=== PATIENT | female | born 1975 | race Caucasian/White ===

== ENCOUNTER 2020-01-17 05:50 | Emergency (ER) | payer OTHER, SELFPAY ==
--- NOTE | ~2020-01-17 | XR_ITS ---
EXAMINATION: XR abdomen/kub 1V DATE: 01/17/2020 06:51 INDICATION: Bilateral flank pain. Kidney stones. TECHNIQUE: A supine view of the abdomen on 2 radiographs was obtained. COMPARISON: CT abdomen and pelvis 01/17/2020 FINDINGS: There are no dilated loops of bowel. There is a large volume of stool in the colon. There a re phleboliths in the pelvis. The kidneys are obscured by bowel. There are 2 visible 1-2 mm stones in each kidney. IMPRESSION: 1. Small bilateral kidney stones. Reviewed, dictated and finalized at location A.
--- NOTE | ~2020-01-17 | CT_ITS ---
EXAMINATION: CT abdomen pelvis wo con DATE: 01/17/2020 06:46 INDICATION: Bilateral flank pain. Nausea. Hematuria. TECHNIQUE: Computed tomography (CT) of the abdomen and pelvis was performed without intravenous contr ast. Automated exposure control and iterative reconstruction technique were employed. The dose-length product was 168.55 mGy-cm. COMPARISON: CT abdomen and pelvis 02/01/2019 FINDINGS: The visualized portions of the lung bases are clear without pneumonia or pleural effusion. The heart size is normal. No pericardial effusion. Partially visualized are breast implants. The live r, gallbladder, spleen, pancreas, and adrenal glands are normal. There are at least seven 1-2 mm ston es in right kidney. There are at least nine 1-3 mm stones in left kidney. There are no dilated loops of bowel. The appendix is normal. There are no pathologically enlarged lymph nodes. There is no free intraperitoneal fluid. There is mild lumbar spondylosis. IMPRESSION: 1. Small bilateral nonobstructing kidney stones. Reviewed, dictated and finalized at location A.
[2020-01-17 05:55] VITALS: BP 98/60; PULSE 112; RESP 18; TEMP 37.1; O2SAT 100
[2020-01-17 06:24] LABS: Basophils Percent Auto 0.5 % (0.2-1.2); Eosinophils Percent Auto 0.7 % (0-4.4); Hematocrit 41.5 % (37.0-47.0); Hemoglobin 13.4 g/dL (12.0-15.0); Immature Granulocyte Absolute 0.03 K/mm3 (0.00-0.031); Immature Granulocyte Percent A 0.5 % (0-0.5); Lymphocytes Absolute Auto 1.06 K/mm3 (0.9-3.2); Lymphocytes Percent Auto 17.8 % (18.3-44.2); Mean Corpuscular HGB Conc 32.3 g/dl (32-36); Mean Corpuscular Hemoglobin 31.2 pg (26-34); Mean Corpuscular Volume 96.7 fl (80-100); Mean Platelet Volume 11.7 fl (7.4-10.4); Monocytes Absolute Auto 0.7 K/mm3 (0.1-0.6); Monocytes Percent Auto 11.6 % (2.6-8.5); Neutrophils Absolute Auto 4.1 K/mm3 (1.3-6.7); Neutrophils Percent Auto 68.9 % (45.5-73.1); Platelet Count Result 202 k/mm3 (150-375); Red Blood Count 4.29 M/mm3 (4.2-5.4)
[2020-01-17] MEDS: ONDANSETRON INJ 4 MG/2 ML VIAL IV PUSH (06:26)
[2020-01-17] MEDS: HYDROMORPHONE HCL 1 MG/ML INJ 0.5 MG IV PUSH (06:27)
--- NOTE | 2020-01-17 06:35 | ED.ABDPAIN ---
HPI - Abdominal Pain General Chief Complaint: Abdominal Pain Stated Complaint: FLANK PAIN Time Seen by Provider: 01/17/20 06:01 Source: patient Mode of arrival: ambulatory Limitations: no limitations History of Present Illness HPI narrative: 44 yo female with h/o SLE , kidney stones, hypotension, tachycardia who presents with c/o bilateral flank pain. Patient states she developed severe right flank pain at 5 am as she was getting ready for work this morning. She states her pain has been constant and severe. She has not developed left flank pain as well. This pain feels similar to her previous kidney stones. She denies associated nausea, vomiting, fever or urinary symptoms. She has not taken anything for her pain prior to arrival. MD elicited complaint: flank pain Pertinent past history: kidney stones Onset (ago): hour(s) (1) Pain Consistency: constant Location: RLQ, LLQ, L flank and R flank Radiation: other (bilateral groin) Related Data Home Medications Medication Instructions Recorded Confirmed amitriptyline 01/17/20 cyclobenzaprine mg 01/17/20 gabapentin 01/17/20 hydrocodone-acetaminophen 01/17/20 Allergies Allergy/AdvReac Type Severity Reaction Status Date / Time PROCHLORPERAZINE EDISYLATE Allergy Mild LOCKED JAW Uncoded 06/07/18 07:34 AND NECK PROCHLORPERAZINE MALEATE Allergy Mild LOCK JAW Uncoded 06/07/18 07:34 AND NECK MEPERIDINE HCL AdvReac Mild N&A Uncoded 06/07/18 07:34 Review of Systems Review of Systems: All systems reviewed & are unremarkable except as noted in HPI and below Constitutional: Constitutional: Denies chills and Denies fever(s) Cardiovascular: Cardiovascular: Denies chest pain and Reports rapid heart rate (history of tachycardia) Respiratory: Respiratory: Denies cough Gastrointestinal: Gastrointestinal: Reports abdominal pain Genitourinary: Genitourinary: Denies hematuria, Denies nocturia, Denies dysuria and Reports flank pain Musculoskeletal: Musculoskeletal: Reports back pain [facility] Past Medical History Medical History (Updated 01/17/20 @ 07:25 by Yadira Brothers MD) Hypotension Kidney stone Lupus (systemic lupus erythematosus) Tachycardia Surgical History Surgical History (Updated 01/17/20 @ 06:41 by Yadira Brothers MD) H/O lithotripsy Family History Family History (Updated 01/17/20 @ 06:43 by Yadira Brothers MD) Mother Multiple sclerosis Social History Social History (Updated 01/17/20 @ 06:42 by Yadira Brothers MD) Smoking status: Former smoker Gender identity (if verbalized by the patient): Female Exam Const: General: alert; No diaphoretic Nutritional Appearance: thin Orientation/consciousness: patient oriented x3 Other: mild distress Eyes: Conjunctivae: conjunctivae normal Pupils: Equal, round and reactive pupils present EOM: EOMs intact bilaterally Neck: Neck: no lymphadenopathy Resp: Effort & Inspection: normal respiratory effort Auscultation: clear to auscultation bilaterally Cardio: Rate: tachycardic Rhythm: regular rhythm Heart sounds: no murmurs GI: GI Palp: Yes Soft to palpation and Yes Tenderness to palpation present (GI) (bilateral lower quadrant, suprapubic) Auscultation: normal bowel sounds Back/Spine/Pelvis: Back: CVA tenderness (right) Skin: General skin exam: normal color Rashes: no rashes Course Reevaluation(s) Reevaluation #1: Patient states she feels better. I have discussed CT showing bilateral kidney stones but no obstructing. She will be started on antibiotics for UTi. Date: 01/17/20 Time: 07:23 Vital Signs Vital signs: Vital Signs Temperature 98.7 F 01/17/20 05:55 Pulse Rate 112 H 01/17/20 05:55 Respiratory Rate 18 01/17/20 05:55 Blood Pressure 98/60 L 01/17/20 05:55 Pulse Oximetry 100 01/17/20 05:55 Temperature 98.7 F 01/17/20 05:55 Pulse Rate 82 01/17/20 07:25 Respiratory Rate 18 01/17/20 07:25 Blood Pressure 106/61 01/17/20
[2020-01-17 06:38] LABS: Blood Urea Nitrogen 13 mg/dL (7-17); Calcium 9.5 mg/dL (8.4-10.2); Carbon Dioxide 32 mmol/L (22-30); Chloride 98 mmol/L (98-107); Estimated Glomerular Filt Rate > 60; Glucose 91 mg/dL (65-105); Potassium 4.2 mmol/L (3.4-5.0); Sodium 136 mmol/L (137-145)
[2020-01-17 06:43] LABS: Add Urine Microscopic? YES; Appearance Urine Cloudy (Clear); Bilirubin Urine Negative (Negative); Blood Urine 2+ (Negative); Color Urine Yellow (Yellow); Glucose Urine UA Negative (Negative); Ketones Urine Negative (Negative); Leukocyte Esterase Ur 3+ LEU/UL (Negative); Mucus Urine Rare /lpf; Nitrate Urine Negative (Negative); Protein Urine 2+ mg/dL (Negative); RBC Urine >75 /hpf (0-2); Specific Grav Ur 1.016 (1.001-1.035); Squamous Epithelial Cell Urine Few /hpf (Few); WBC Urine >75 /hpf
[2020-01-17 07:25] VITALS: BP 106/61; PULSE 82; RESP 18; O2SAT 98
== END 2020-01-17 07:50 | disposition home or self-care (01) ==
PROVIDERS: Emergency Provider General Practice; PCP Nurse Practitioner Adult Health
DX: N39.0 Urinary tract infection, site not specified (principal); M32.9 Systemic lupus erythematosus, unspecified; Z87.891 Personal history of nicotine dependence; Z87.442 Personal history of urinary calculi
CPT/HCPCS: 36415; 74018; 74176; 80048; 81001; 81025; 83735; 85025; 87077; 87086; 87088; 87186; 96365; 96375; 99284; J0696; J1170; J2405

== ENCOUNTER 2020-01-22 11:04 | Emergency (ER) | payer OTHER, SELFPAY ==
--- NOTE | ~2020-01-22 | CT_ITS ---
EXAMINATION: CT brain wo con DATE: 01/22/2020 12:07 INDICATION: Headache. TECHNIQUE: Computed tomography (CT) of the head was performed without intravenous contrast. The mA wa s adjusted according to patient size. Iterative reconstruction technique was employed. The dose-lengt h product was 605.33 mGy-cm. COMPARISON: Brain MRI 07/18/2018 FINDINGS: There is no intracranial hemorrhage, acute infarction, or abnormal intracranial mass lesion . The ventricles are normal in size. There is mild mucosal thickening in sphenoid sinus. 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 The mastoid air cells are normal. IMPRESSION: 1. Normal brain. Reviewed, dictated and finalized at location A. IMPRESSION: 1. Normal brain.
[2020-01-22 11:35] VITALS: BP 123/68; PULSE 106; RESP 18; TEMP 37.2; O2SAT 100
--- NOTE | 2020-01-22 11:49 | ED.GENADULT ---
HPI - General Adult General Chief complaint: Headache Stated complaint: multiple complaints Time Seen by Provider: 01/22/20 11:25 Source: patient Mode of arrival: ambulatory Limitations: no limitations History of Present Illness HPI narrative: Patient awoke at 630 this morning with a sudden headache. She is complaining of pain and nausea. She does not have a history of migraine. Onset (ago): hour(s) Location: head Radiation: non-radiation Severity: severe Quality: aching Relieving factors: none Exacerbating factors: none Associated symptoms: nausea/vomiting Treatments prior to arrival: none Related Data Home Medications Medication Instructions Recorded Confirmed gabapentin 300 mg PO TID 01/17/20 albuterol sulfate [ProAir HFA] 2 puff INHALATION QID PRN 01/22/20 amitriptyline 100 mg PO HS 01/22/20 azathioprine 100 mg PO DAILY 01/22/20 budesonide-formoterol [Symbicort] 2 puff INHALATION Q12H 01/22/20 fludrocortisone 0.1 mg PO DAILY 01/22/20 hydroxychloroquine 400 mg PO DAILY 01/22/20 midodrine 10 mg PO BID 01/22/20 midodrine 15 mg PO QAM 01/22/20 potassium citrate 30 meq PO TID 01/22/20 prednisone 2 mg PO DAILY 01/22/20 rituximab mg IV [id number] 01/22/20 spironolactone 100 mg PO DAILY 01/22/20 Allergies Allergy/AdvReac Type Severity Reaction Status Date / Time prochlorperazine Allergy Intermediate Other Verified 01/22/20 11:39 [From Compazine] meperidine AdvReac Nausea and Verified 01/22/20 14:15 Vomiting Review of Systems Review of Systems: All systems reviewed & are unremarkable except as noted in HPI and below PMFSH Past Medical History Medical History Hypotension Kidney stone Lupus (systemic lupus erythematosus) Tachycardia Surgical History Surgical History H/O lithotripsy Family History Family History (Updated 01/22/20 @ 13:25 by Joi Strong PA-C) Mother Multiple sclerosis Father Pulmonary fibrosis Social History Social History (Updated 01/22/20 @ 12:44 by Joi Strong PA-C) Smoking status: Former smoker Alcohol intake: never Substance use: never Living arrangements: with family Occupation/Education: occupation Additional occupation/education comments: [employer] Gender identity (if verbalized by the patient): Female Exam Const: General: healthy appearing, no acute distress and alert Orientation/consciousness: patient oriented x3 HENMT: Head: normal to inspection Ears: TM's normal bilaterally Throat: posterior oropharynx normal Eyes: Conjunctivae: conjunctivae normal Pupils: Equal, round and reactive pupils present EOM: EOMs intact bilaterally Neck: Neck: no lymphadenopathy Resp: Effort & Inspection: normal respiratory effort Auscultation: clear to auscultation bilaterally Cardio: Rate: regular rate Rhythm: regular rhythm GI: GI Palp: Yes Soft to palpation Skin: General skin exam: normal color Rashes: no rashes Neuro: General: patient oriented x3, moves all extremities and no meningeal signs Psych: Mental Status: mental status grossly normal Course Course Emergency Course: Pt states her head hurts worse with movement. CT is normal. Pt does take Hydrocodone for chronic pain, and took it this am. She is feeling better. Will treat as migraine. Vital Signs Vital signs: Vital Signs Temperature 37.2 C 01/22/20 11:35 Pulse Rate 106 H 01/22/20 11:35 Respiratory Rate 18 01/22/20 11:35 Blood Pressure 123/68 01/22/20 11:35 Pulse Oximetry 100 01/22/20 11:35 Temperature 37.2 C 01/22/20 11:35 Pulse Rate 106 H 01/22/20 11:35 Respiratory Rate 18 01/22/20 11:35 Blood Pressure 123/68 01/22/20 11:35 Pulse Oximetry 100 01/22/20 11:35 Medical Decision Making Vital Signs Vital Signs: Vital Signs Temperature 37.2 C 01/22/20 11:35 Pulse Rate 106 H 01/22/20 11:35 Re
[2020-01-22] MEDS: SODIUM CHLORIDE 0.9% IV 1,000 ML 999 ML IV CONT (12:43)
[2020-01-22] MEDS: ONDANSETRON INJ 4 MG/2 ML VIAL IV PUSH (12:44)
[2020-01-22] MEDS: KETOROLAC 30 MG/ML VIAL (*BKC) IV PUSH (12:45)
[2020-01-22 12:47] LABS: Basophils Percent Auto 0.3 % (0.2-1.2); Eosinophils Percent Auto 0.2 % (0-4.4); Hematocrit 42.5 % (37.0-47.0); Hemoglobin 13.9 g/dL (12.0-15.0); Immature Granulocyte Absolute 0.02 K/mm3 (0.00-0.031); Immature Granulocyte Percent A 0.3 % (0-0.5); Lymphocytes Absolute Auto 0.21 K/mm3 (0.9-3.2); Lymphocytes Percent Auto 3.3 % (18.3-44.2); Mean Corpuscular HGB Conc 32.7 g/dl (32-36); Mean Corpuscular Hemoglobin 31.4 pg (26-34); Mean Corpuscular Volume 96.2 fl (80-100); Mean Platelet Volume 11.7 fl (7.4-10.4); Monocytes Absolute Auto 0.5 K/mm3 (0.1-0.6); Monocytes Percent Auto 8.1 % (2.6-8.5); Neutrophils Absolute Auto 5.6 K/mm3 (1.3-6.7); Neutrophils Percent Auto 87.8 % (45.5-73.1); Platelet Count Result 177 k/mm3 (150-375); Red Blood Count 4.42 M/mm3 (4.2-5.4); Red Cell Distribution Width 12.9 % (11.5-14.5); White Blood Count 6.4 K/mm3 (4.5-10.0)
[2020-01-22 13:00] LABS: Alanine Aminotransferase 38 U/L (4-35); Albumin Level 5.1 g/dL (3.5-5.1); Alkaline Phosphatase 72 U/L (38-126); Aspartate Amino Transferase 50 U/L (14-36); Bilirubin,Total 0.3 mg/dL (0.2-1.3); Blood Urea Nitrogen 12 mg/dL (7-17); Carbon Dioxide 31 mmol/L (22-30); Chloride 95 mmol/L (98-107); Estimated CRCL calculation 62 ml/min; Estimated Glomerular Filt Rate > 60; Glucose 73 mg/dL (65-105); Potassium 4.4 mmol/L (3.4-5.0); Sodium 133 mmol/L (137-145)
[2020-01-22 14:49] VITALS: BP 98/52; PULSE 108; RESP 18; O2SAT 99
== END 2020-01-22 14:50 | disposition home or self-care (01) ==
PROVIDERS: Physician Assistant; Emergency Provider Emergency Medicine; PCP Nurse Practitioner Adult Health
DX: G43.009 Migraine without aura, not intractable, without status migrainosus (principal); M32.9 Systemic lupus erythematosus, unspecified; Z87.891 Personal history of nicotine dependence; Z87.442 Personal history of urinary calculi
CPT/HCPCS: 36415; 70450; 80053; 85025; 96361; 96374; 96375; 99284; J1200; J1885; J2405; J7030

== ENCOUNTER 2020-01-23 12:38 | Emergency (ER) | payer OTHER, SELFPAY ==
--- NOTE | ~2020-01-23 | XR_ITS ---
EXAMINATION: XR chest 1V portable DATE: 01/23/2020 13:56 INDICATION: Chest pain. Cough. TECHNIQUE: A single frontal view of the chest was obtained. COMPARISON: Chest 2 views 02/24/2015 FINDINGS: The chest demonstrates clear lungs without pneumonia, pleural effusion, or pneumothorax. Th e heart size is normal. IMPRESSION: 1. No acute cardiopulmonary disease. Reviewed, dictated and finalized at location A.
[2020-01-23 12:43] VITALS: BP 103/65; PULSE 109; RESP 20; TEMP 37.4; O2SAT 99
[2020-01-23] MEDS: METOCLOPRAMIDE HCL INJ 10 MG/2 ML VIAL IV PUSH (13:33)
[2020-01-23] MEDS: KETOROLAC (*BKC) 60 MG/2 ML VIAL IM (13:33)
[2020-01-23] MEDS: SODIUM CHLORIDE 0.9% IV 1,000 ML 999 ML IV CONT (13:34)
[2020-01-23 13:40] LABS: Basophils Percent Auto 0.2 % (0.2-1.2); Eosinophils Percent Auto 0.2 % (0-4.4); Hematocrit 35.3 % (37.0-47.0); Hemoglobin 11.5 g/dL (12.0-15.0); Immature Granulocyte Absolute 0.01 K/mm3 (0.00-0.031); Immature Granulocyte Percent A 0.2 % (0-0.5); Immature Platelet Fraction Pct 5.4 % (0.9-11.2); Lymphocytes Absolute Auto 0.49 K/mm3 (0.9-3.2); Lymphocytes Percent Auto 10.7 % (18.3-44.2); Mean Corpuscular HGB Conc 32.6 g/dl (32-36); Mean Corpuscular Hemoglobin 31.3 pg (26-34); Mean Corpuscular Volume 95.9 fl (80-100); Mean Platelet Volume 11.5 fl (7.4-10.4); Monocytes Absolute Auto 0.8 K/mm3 (0.1-0.6); Monocytes Percent Auto 16.6 % (2.6-8.5); Neutrophils Absolute Auto 3.3 K/mm3 (1.3-6.7); Neutrophils Percent Auto 72.1 % (45.5-73.1); Platelet Count Result 125 k/mm3 (150-375); Red Blood Count 3.68 M/mm3 (4.2-5.4); Red Cell Distribution Width 13.1 % (11.5-14.5); White Blood Count 4.6 K/mm3 (4.5-10.0)
--- NOTE | 2020-01-23 13:40 | ED.URI ---
HPI - URI/Sore Throat General Chief Complaint: Upper Respiratory Infection Stated Complaint: headaches, mucus Time Seen by Provider: 01/23/20 13:12 Source: patient Mode of arrival: ambulatory Limitations: no limitations History of Present Illness HPI Narrative: This is a 44 year old female that presents to the ER for headache x 2 days. Reports posterior headache that is constant. Reports history of migraines. She has tried taking her migraine medications with little relief. Also reports some cough and congestion. Reports mid chest pain with breathing. Denies fever, shortness of breath, vision changes, vomiting, numbness or weakness. Related Data Home Medications Medication Instructions Recorded Confirmed gabapentin 300 mg PO TID 01/17/20 albuterol sulfate [ProAir HFA] 2 puff INHALATION QID PRN 01/22/20 amitriptyline 100 mg PO HS 01/22/20 azathioprine 100 mg PO DAILY 01/22/20 budesonide-formoterol [Symbicort] 2 puff INHALATION Q12H 01/22/20 fludrocortisone 0.1 mg PO DAILY 01/22/20 hydroxychloroquine 400 mg PO DAILY 01/22/20 midodrine 10 mg PO BID 01/22/20 midodrine 15 mg PO QAM 01/22/20 potassium citrate 30 meq PO TID 01/22/20 prednisone 2 mg PO DAILY 01/22/20 rituximab mg IV [id number] 01/22/20 spironolactone 100 mg PO DAILY 01/22/20 Allergies Allergy/AdvReac Type Severity Reaction Status Date / Time prochlorperazine Allergy Intermediate Other Verified 01/22/20 11:39 [From Compazine] meperidine AdvReac Nausea and Verified 01/22/20 14:15 Vomiting Review of Systems Review of Systems: Narrative: CONSTITUTIONAL: Denies fever EYES: Denies visual changes ENT: Reports congestion. Denies sore throat, or otalgia. CARDIOVASCULAR: Reports chest pain RESPIRATORY: Reports cough. Denies dyspnea. GASTROINTESTINAL: Denies vomiting NEUROLOGIC: Reports headache. Denies numbness, or weakness. All systems reviewed & are unremarkable except as noted in HPI and below PMFSH Family History Family History (Updated 01/22/20 @ 13:26 by Joi Strong PA-C) Mother Multiple sclerosis Father Pulmonary fibrosis Social History Social History (Updated 01/22/20 @ 12:44 by ROMAN Pedraza Smoking status: Former smoker Alcohol intake: never Substance use: never Additional occupation/education comments: [employer] Gender identity (if verbalized by the patient): Female Exam Narrative: Exam Narrative: GENERAL: Well-appearing, well-nourished, and in no acute distress. HEAD: Normocephalic, atraumatic. EYES: PERRLA and EOMI. ENT: Nares clear, no rhinorrhea or epistaxis. Mucous membranes moist. Oropharynx without tonsillar hypertrophy exudate or other lesions. Bilateral TMs pearly [place] non-bulging NECK: Supple. No adenopathy or masses. Normal ROM CHEST: Clear to auscultation. No respiratory distress. No wheezes rales or rhonchi HEART: Regular rate and rhythm. No murmur heard. Normal peripheral pulses. EXTREMITIES: Normal range of motion. No edema. Strength equal in bilateral upper and lower extremities SKIN: Warm, dry, no rash. NEURO: No focal deficits. Alert and oriented x3. CN II-XII grossly intact. Normal finger to nose PSYCH: Normal mood and affect Course Vital Signs Vital signs: Vital Signs Temperature 99.3 F 01/23/20 12:43 Pulse Rate 109 H 01/23/20 12:43 Respiratory Rate 01/23/20 12:43 Blood Pressure 103/65 01/23/20 12:43 Pulse Oximetry 99 01/23/20 12:43 Temperature 99.3 F 01/23/20 12:43 Pulse Rate 109 H 01/23/20 12:43 Respiratory Rate 01/23/20 12:43 Blood Pressure 103/65 01/23/20 12:43 Pulse Oximetry 99 01/23/20 12:43 MDM - URI/Sore Throat MDM Narrative Medical decision making narrative: Patient presents to the emergency department for cold symptoms x2 days. She is afebrile and nontoxic-appearing. No leukocytosis on CBC. Patient with mild normocytic anemia which seems to be around her baseline. Metabolic panel with mild hyponatremia,
[2020-01-23 13:50] LABS: Blood Urea Nitrogen 10 mg/dL (7-17); Calcium 8.6 mg/dL (8.4-10.2); Carbon Dioxide 26 mmol/L (22-30); Chloride 99 mmol/L (98-107); Estimated CRCL calculation 69 ml/min; Estimated Glomerular Filt Rate > 60; Glucose 86 mg/dL (65-105); Potassium 4.3 mmol/L (3.4-5.0); Sodium 131 mmol/L (137-145)
[2020-01-23 13:58] LABS: D Dimer 0.27 ug/mL (<0.48)
[2020-01-23 14:02] LABS: Troponin I < 0.012 ng/mL (0.000-0.034)
[2020-01-23 14:54] VITALS: BP 128/80; PULSE 80; RESP 20; TEMP 37.1; O2SAT 98
== END 2020-01-23 14:55 | disposition home or self-care (01) ==
PROVIDERS: Physician Assistant; Emergency Provider Emergency Medicine; PCP Nurse Practitioner Adult Health
DX: B34.9 Viral infection, unspecified (principal); Z87.891 Personal history of nicotine dependence; M32.9 Systemic lupus erythematosus, unspecified; Z87.442 Personal history of urinary calculi
CPT/HCPCS: 36415; 71045; 80048; 84484; 85025; 85055; 85380; 87804; 96365; 96372; 96375; 99284; J0131; J1100; J1200; J1885; J2765; J7030

== ENCOUNTER 2020-04-11 17:03 | Outpatient (CLI) | payer OTHER, SELFPAY ==
--- NOTE | ~2020-04-11 | MR_ITS ---
EXAMINATION: MR lumbar spine wo con EXAM DATE: 04/11/2020 17:46 INDICATION: Lumbar radiculopathy. TECHNIQUE: Multi-sequential, multiplanar MR images of the lumbar spine were obtained without contrast . Sagittal T1, T2, T2 fat saturation images. Axial T2 weighted images. Comparison is made to prior examination from 07/25/2018. FINDINGS: Mild loss of the L4-5 and L5-S1 disc heights with tiny annular fissures. The vertebral body and disc heights are otherwise well maintained. The vertebral bodies are aligned in the AP dimension . The conus medullaris terminates at the L1/2 level and has normal signal intensity and morphology. There are no suspicious marrow signal abnormalities. Paraspinal soft tissue is unremarkable. Level by level evaluation: T12-L1: Disc does not extend beyond the endplate margin. Facet arthropathy: Mild. Neural foraminal stenosis: No stenosis. Central canal stenosis: No stenosis. L1-L2: Disc does not extend beyond the endplate margin. Facet arthropathy: Mild. Neural foraminal stenosis: No stenosis. Central canal stenosis: No stenosis. L2-L3: Disc does not extend beyond the endplate margin. Facet arthropathy: Mild. Neural foraminal stenosis: No stenosis. Central canal stenosis: No stenosis. L3-L4: There is a minimal diffuse disc bulge. Facet arthropathy: Mild. Neural foraminal stenosis: No stenosis. Central canal stenosis: No stenosis. L4-L5: There is a mild diffuse disc bulge. Facet arthropathy: Moderate. Neural foraminal stenosis: Mild to moderate left, mild right. Central canal stenosis: Mild. L5-S1: There is a mild diffuse disc bulge. Facet arthropathy: Mild. Neural foraminal stenosis: No stenosis. Central canal stenosis: No stenosis. Difficult appreciate any significant interval change compared to 2018. IMPRESSION: Mild lumbar spondylosis, not significantly changed. Reviewed, dictated and finalized at location B.
== END 2020-04-11 17:04 | disposition home or self-care (01) ==
PROVIDERS: PCP Nurse Practitioner Adult Health; Visit Provider Nurse Practitioner Family
DX: M47.26 Other spondylosis with radiculopathy, lumbar region (principal)
CPT/HCPCS: 72148

== ENCOUNTER 2020-04-13 14:46 | Outpatient (CLI) | payer OTHER, SELFPAY ==
--- NOTE | ~2020-04-13 | XR_ITS ---
EXAMINATION: XR chest 2V DATE: 04/13/2020 15:31 INDICATION: Hemoptysis, mid chest pressure TECHNIQUE: PA and lateral views of the chest are obtained. COMPARISON: 01/23/2020 FINDINGS: The lungs are free of acute opacities. There is no pleural effusion or pneumothorax. The ca rdiomediastinal silhouette is normal. There is subtle dextrocurvature of the upper thoracic spine. Bi lateral breast implants are noted. IMPRESSION: 1. No acute cardiopulmonary abnormality. Reviewed, dictated and finalized at location A.
[2020-04-13 15:20] LABS: Basophils Percent Auto 0.3 % (0.2-1.2); Eosinophils Percent Auto 0.6 % (0-4.4); Hematocrit 38.9 % (37.0-47.0); Hemoglobin 12.8 g/dL (12.0-15.0); Immature Granulocyte Absolute 0.02 K/mm3 (0.00-0.031); Immature Granulocyte Percent A 0.3 % (0-0.5); Lymphocytes Absolute Auto 1.04 K/mm3 (0.9-3.2); Lymphocytes Percent Auto 15.7 % (18.3-44.2); Mean Corpuscular HGB Conc 32.9 g/dl (32-36); Mean Corpuscular Hemoglobin 32.2 pg (26-34); Mean Corpuscular Volume 97.7 fl (80-100); Mean Platelet Volume 11.9 fl (7.4-10.4); Monocytes Absolute Auto 0.7 K/mm3 (0.1-0.6); Monocytes Percent Auto 9.8 % (2.6-8.5); Neutrophils Absolute Auto 4.8 K/mm3 (1.3-6.7); Neutrophils Percent Auto 73.3 % (45.5-73.1); Platelet Count Result 201 k/mm3 (150-375); Red Blood Count 3.98 M/mm3 (4.2-5.4); Red Cell Distribution Width 12.5 % (11.5-14.5); White Blood Count 6.6 K/mm3 (4.5-10.0)
[2020-04-13 15:45] LABS: D Dimer 0.27 ug/mL (<0.48)
== END 2020-04-13 14:47 | disposition home or self-care (01) ==
LOC: ANHLAB 14:56
PROVIDERS: PCP Nurse Practitioner Adult Health; Visit Provider Nurse Practitioner Adult Health
DX: R04.2 Hemoptysis (principal)
CPT/HCPCS: 36415; 71046; 85025; 85380

== ENCOUNTER 2020-08-07 10:19 | Outpatient (CLI) | payer OTHER, SELFPAY ==
--- NOTE | ~2020-08-07 | XR_ITS ---
XR abdomen/kub 1V 08/07/2020 11:19 INDICATION: History of kidney stones TECHNIQUE: KUB COMPARISON: Comparison to multiple prior studies sequentially, with oldest reviewed study dated 02/01. FINDINGS: Bowel gas pattern is normal. There is no evidence of free air, mass, organomegaly, ascites or obstruction. No abnormal calculi are seen. Kidneys are obscured by bowel content. There are pelv ic phleboliths. The bones appear intact. IMPRESSION: 1: No acute abdominal abnormality identified. Reviewed, dictated and finalized at location A.
[2020-08-07 10:55] LABS: Basophils Percent Auto 0.4 % (0.2-1.2); Eosinophils Absolute Auto 0.1 K/mm3 (0-0.3); Eosinophils Percent Auto 1.5 % (0-4.4); Hematocrit 44.7 % (37.0-47.0); Hemoglobin 14.9 g/dL (12.0-15.0); Immature Granulocyte Absolute 0.02 K/mm3 (0.00-0.031); Immature Granulocyte Percent A 0.4 % (0-0.5); Lymphocytes Absolute Auto 0.81 K/mm3 (0.9-3.2); Lymphocytes Percent Auto 15.1 % (18.3-44.2); Mean Corpuscular HGB Conc 33.3 g/dl (32-36); Mean Corpuscular Hemoglobin 32.4 pg (26-34); Mean Corpuscular Volume 97.2 fl (80-100); Mean Platelet Volume 11.3 fl (7.4-10.4); Monocytes Absolute Auto 0.4 K/mm3 (0.1-0.6); Monocytes Percent Auto 8.2 % (2.6-8.5); Neutrophils Percent Auto 74.4 % (45.5-73.1); Platelet Count Result 228 k/mm3 (150-375); Red Cell Distribution Width 12.2 % (11.5-14.5); White Blood Count 5.4 K/mm3 (4.5-10.0)
[2020-08-07 10:58] LABS: Add Urine Microscopic? NO; Appearance Urine Clear (Clear); Bilirubin Urine Negative (Negative); Blood Urine Negative (Negative); Color Urine Straw (Yellow); Glucose Urine UA Negative (Negative); Ketones Urine Negative (Negative); Leukocyte Esterase Ur Negative LEU/UL (NEGATIVE); Nitrate Urine Negative (Negative); Protein Urine Negative (Negative); Urobilinogen Urine Negative mg/dL (<2.0)
[2020-08-07 10:59] LABS: Specific Grav Ur 1.004 (1.001-1.035)
[2020-08-07 11:08] LABS: D Dimer 0.27 ug/mL (<0.48)
== END 2020-08-07 10:20 | disposition home or self-care (01) ==
PROVIDERS: PCP Nurse Practitioner Adult Health; Visit Provider Nurse Practitioner Adult Health
DX: Z87.442 Personal history of urinary calculi (principal); R10.9 Unspecified abdominal pain; R04.2 Hemoptysis
CPT/HCPCS: 36415; 74018; 81003; 85025; 85380

== ENCOUNTER 2020-10-21 11:29 | Outpatient (CLI) | payer OTHER, SELFPAY ==
--- NOTE | ~2020-10-21 | XR_ITS ---
XR abdomen/kub 1V 10/21/2020 11:51 INDICATION: Renal stone TECHNIQUE: KUB COMPARISON: Comparison to multiple prior studies sequentially, with oldest reviewed study dated 05/24. FINDINGS: Bowel gas pattern is normal. There is no evidence of free air, mass, organomegaly, ascites or obstruction. There are possible small bilateral renal stones, obscured by bowel content. There ar e pelvic phleboliths. The bones appear intact. IMPRESSION: 1: Possible small bilateral renal stones obscured by bowel content.. Reviewed, dictated and finalized at location A. [employer] REPA[employer]ER
== END 2020-10-21 11:30 | disposition home or self-care (01) ==
LOC: ANHIMG 11:38
PROVIDERS: PCP Nurse Practitioner Adult Health; Visit Provider Urology
DX: N20.0 Calculus of kidney (principal)
CPT/HCPCS: 74018

== ENCOUNTER 2021-04-06 16:18 | Emergency (ER) | payer OTHER, SELFPAY ==
[2021-04-06 16:29] VITALS: BP 114/80; PULSE 99; RESP 18; TEMP 36.8; O2SAT 100
--- NOTE | 2021-04-06 16:32 | ECG_ITS ---
Measurements Intervals [place] Rate: 98 P: 56 [place]: 146 QRS: 16 QRSD: 117 T: 46 QT: 363 QTc: 464 Interpretive Statements SINUS RHYTHM INCOMPLETE RIGHT BUNDLE BRANCH BLOCK BORDERLINE ECG Electronically Signed On 04-06-2021 20:18:47 CDT by David Mcdermott D.O.
[2021-04-06 16:59] LABS: Basophils Percent Auto 0.4 % (0.2-1.2); Eosinophils Absolute Auto 0.1 K/mm3 (0-0.3); Eosinophils Percent Auto 1.8 % (0-4.4); Hematocrit 40.8 % (37.0-47.0); Hemoglobin 13.3 g/dL (12.0-15.0); Immature Granulocyte Absolute 0.02 K/mm3 (0.00-0.031); Immature Granulocyte Percent A 0.3 % (0-0.5); Lymphocytes Absolute Auto 1.56 K/mm3 (0.9-3.2); Lymphocytes Percent Auto 21.6 % (18.3-44.2); Mean Corpuscular HGB Conc 32.6 g/dl (32-36); Mean Corpuscular Hemoglobin 31.1 pg (26-34); Mean Corpuscular Volume 95.6 fl (80-100); Mean Platelet Volume 11.4 fl (7.4-10.4); Monocytes Absolute Auto 0.5 K/mm3 (0.1-0.6); Monocytes Percent Auto 7.2 % (2.6-8.5); Neutrophils Percent Auto 68.7 % (45.5-73.1); Platelet Count Result 262 k/mm3 (150-375); Red Blood Count 4.27 M/mm3 (4.2-5.4); Red Cell Distribution Width 12.4 % (11.5-14.5); White Blood Count 7.2 K/mm3 (4.5-10.0)
[2021-04-06 17:09] LABS: Alanine Aminotransferase 28 U/L (4-35); Albumin Level 4.7 g/dL (3.5-5.1); Alkaline Phosphatase 57 U/L (38-126); Anion Gap 9 mmol/L (8-16); Aspartate Amino Transferase 37 U/L (14-36); Bilirubin,Total 0.3 mg/dL (0.2-1.3); Blood Urea Nitrogen 13 mg/dL (7-17); Calcium 9.5 mg/dL (8.4-10.2); Carbon Dioxide 26 mmol/L (22-30); Chloride 102 mmol/L (98-107); Estimated CRCL calculation 73 ml/min; Estimated Glomerular Filt Rate > 60; Glucose 73 mg/dL (65-105); Lipase 60 U/L (23-300); Potassium 3.9 mmol/L (3.4-5.0); Sodium 137 mmol/L (137-145)
== END 2021-04-06 21:37 | disposition left against medical advice (07) ==
PROVIDERS: Emergency Provider Emergency Medicine; PCP Nurse Practitioner Adult Health
DX: Z53.21 Procedure and treatment not carried out due to patient leaving prior to being seen by health care provider (principal)
CPT/HCPCS: 36415; 80053; 83690; 85025; 93005; 99199

== ENCOUNTER 2021-04-28 10:42 | Emergency (ER) | payer OTHER, SELFPAY ==
--- NOTE | ~2021-04-28 | CT_ITS ---
EXAMINATION: CT abdomen pelvis w con INDICATION: Left lower quadrant pain TECHNIQUE: Computed tomographic images of the abdomen and pelvis were obtained after the administrati on of 100 cc of Omnipaque 350 intravenous contrast. The dose-length product (DLP) was 226.53 mGy-cm. Automated exposure control and iterative reconstruction technique were employed. COMPARISON: 01/17/2020 FINDINGS: The lung bases are clear. The heart size is normal. The liver, spleen, pancreas, gallbladde r, and adrenal glands are normal. There is bilateral nonobstructing nephrolithiasis. No pathologicall y enlarged abdominal or pelvic lymph nodes are identified. There is no free intraperitoneal gas or ev idence of bowel obstruction. A large volume of colonic stool is present. There is a small volume of f ree fluid in the pelvis. The appendix is normal. IMPRESSION: 1. Constipation. Reviewed, dictated and finalized at location A. IMPRESSION: 1. Constipation.
[2021-04-28 10:53] VITALS: BP 113/73; PULSE 102; RESP 18; TEMP 36.9; O2SAT 100
[2021-04-28 11:10] LABS: Basophils Percent Auto 0.5 % (0.2-1.2); Eosinophils Absolute Auto 0.1 K/mm3 (0-0.3); Eosinophils Percent Auto 1.3 % (0-4.4); Hematocrit 38.8 % (37.0-47.0); Hemoglobin 12.7 g/dL (12.0-15.0); Immature Granulocyte Absolute 0.02 K/mm3 (0.00-0.031); Immature Granulocyte Percent A 0.3 % (0-0.5); Lymphocytes Absolute Auto 1.05 K/mm3 (0.9-3.2); Lymphocytes Percent Auto 14.1 % (18.3-44.2); Mean Corpuscular HGB Conc 32.7 g/dl (32-36); Mean Corpuscular Hemoglobin 31.3 pg (26-34); Mean Corpuscular Volume 95.6 fl (80-100); Mean Platelet Volume 11.2 fl (7.4-10.4); Monocytes Absolute Auto 0.5 K/mm3 (0.1-0.6); Monocytes Percent Auto 6.3 % (2.6-8.5); Neutrophils Absolute Auto 5.8 K/mm3 (1.3-6.7); Neutrophils Percent Auto 77.5 % (45.5-73.1); Platelet Count Result 248 k/mm3 (150-375); Red Blood Count 4.06 M/mm3 (4.2-5.4); Red Cell Distribution Width 12.5 % (11.5-14.5); White Blood Count 7.4 K/mm3 (4.5-10.0)
[2021-04-28 11:20] LABS: Alanine Aminotransferase 19 U/L (4-35); Albumin Level 4.6 g/dL (3.5-5.1); Alkaline Phosphatase 61 U/L (38-126); Anion Gap 9 mmol/L (8-16); Aspartate Amino Transferase 31 U/L (14-36); Bilirubin,Total 0.6 mg/dL (0.2-1.3); Blood Urea Nitrogen 13 mg/dL (7-17); Calcium 9.6 mg/dL (8.4-10.2); Carbon Dioxide 26 mmol/L (22-30); Chloride 101 mmol/L (98-107); Estimated CRCL calculation 58 ml/min; Estimated Glomerular Filt Rate > 60; Glucose 77 mg/dL (65-110); Lipase 33 U/L (23-300); Potassium 4.6 mmol/L (3.4-5.0); Sodium 136 mmol/L (137-145)
--- NOTE | 2021-04-28 11:47 | ED.ABDPAIN ---
HPI - Abdominal Pain General Chief Complaint: Abdominal Pain Stated Complaint: abd pain Time Seen by Provider: 04/28/21 11:33 Source: patient and RN notes reviewed Mode of arrival: ambulatory Limitations: no limitations History of Present Illness HPI narrative: This is a 45 year old female who presents for evaluation of left lower abdominal pain. She reports she had a colonoscopy with polyp removal at [place] 1 week ago. She had pain initially after her colonoscopy. She states she thought the pain was subsiding . Her pain worsened last night. This pain has been constant with associated nausea. She denies vomiting, diarrhea, fever or chills. She reports having a normal bowel movement yesterday. She does complain of dysuria for the past 2 days. She took hydrocodone for her pain. Related Data Home Medications Medication Instructions Recorded Confirmed gabapentin 300 mg PO TID 01/17/20 albuterol sulfate [ProAir HFA] 2 puff INHALATION QID PRN 01/22/20 amitriptyline 100 mg PO HS 01/22/20 azathioprine 100 mg PO DAILY 01/22/20 budesonide-formoterol [Symbicort] 2 puff INHALATION Q12H 01/22/20 fludrocortisone 0.1 mg PO DAILY 01/22/20 hydroxychloroquine 400 mg PO DAILY 01/22/20 midodrine 10 mg PO BID 01/22/20 midodrine 15 mg PO QAM 01/22/20 potassium citrate 30 meq PO TID 01/22/20 prednisone 2 mg PO DAILY 01/22/20 rituximab mg IV [id number] 01/22/20 spironolactone 100 mg PO DAILY 01/22/20 Allergies Allergy/AdvReac Type Severity Reaction Status Date / Time prochlorperazine Allergy Intermediate Other Verified 01/22/20 11:39 [From Compazine] meperidine AdvReac Nausea and Verified 01/22/20 14:15 Vomiting Review of Systems Review of Systems: All systems reviewed & are unremarkable except as noted in HPI and below PMFSH Past Medical History Medical History (Updated 04/28/21 @ 14:11 by Yadira Brothers MD) Hypotension Kidney stone Lupus (systemic lupus erythematosus) Tachycardia Surgical History Surgical History H/O lithotripsy Family History Family History (Updated 01/22/20 @ 13:26 by Joi Strong PA-C) Mother Multiple sclerosis Father Pulmonary fibrosis Social History Social History (Updated 01/22/20 @ 12:44 by Joi Strong PA-C) Smoking status: Former smoker Alcohol intake: never Substance use: never Additional occupation/education comments: [employer] Gender identity (if verbalized by the patient): Female Exam Const: General: no acute distress and alert Orientation/consciousness: patient oriented x3 Eyes: EOM: EOMs intact bilaterally Resp: Effort & Inspection: normal respiratory effort and no retractions Auscultation: clear to auscultation bilaterally Cardio: Rate: regular rate Rhythm: regular rhythm Heart sounds: no murmurs GI: GI Palp: Yes Soft to palpation, Yes Tenderness to palpation present (GI) (LLQ), No Guarding due to palpation present (GI) and No Rigid due to palpation Auscultation: normal bowel sounds : General: Yes no CVA tenderness Skin: General skin exam: normal color Rashes: no rashes Neuro: General: patient oriented x3, moves all extremities and CN's II-XI intact bilaterally Course Reevaluation(s) Reevaluation #1: I discussed with patient CT shows constipation. She does not feel urge to poop at this moment. She reports history of constipation so she take metamucil. Labs are unremarkable. Date: 04/28/21 Time: 14:07 Vital Signs Vital signs: Vital Signs Temperature 98.5 F 04/28/21 10:53 Pulse Rate 102 H 04/28/21 10:53 Respiratory Rate 18 04/28/21 10:53 Blood Pressure 113/73 04/28/21 10:53 Pulse Oximetry 100 04/28/21 10:53 Temperature 98.5 F 04/28/21 10:53 Pulse Rate 84 04/28/21 15:06 Respiratory Rate 16 04/28/21 15:06 Blood Pressure 132/86 04/28/21 15:06 Pulse Oximetry 98 04/28/21 15:06 MDM - Abdominal Pain Lab
[2021-04-28] MEDS: ONDANSETRON INJ 4 MG/2 ML VIAL IV PUSH (12:08)
[2021-04-28] MEDS: LACTATED RINGERS 1,000 ML 999 ML IV CONT (12:08)
[2021-04-28] MEDS: MORPHINE SULFATE (*CRX) 4 MG/ML INJ IV PUSH (12:08)
[2021-04-28 12:10] LABS: Add Urine Microscopic? NO; Appearance Urine Clear (Clear); Bilirubin Urine Negative (Negative); Blood Urine Negative (Negative); Color Urine Straw (Yellow); Glucose Urine UA Negative (Negative); Ketones Urine Negative (Negative); Leukocyte Esterase Ur Negative LEU/UL (Negative); Nitrate Urine Negative (Negative); Protein Urine Negative (Negative); Specific Grav Ur 1.005 (1.001-1.035); Urobilinogen Urine Negative mg/dL (<2.0)
[2021-04-28 15:06] VITALS: BP 132/86; PULSE 84; RESP 16; O2SAT 98
== END 2021-04-28 15:06 | disposition home or self-care (01) ==
PROVIDERS: Emergency Provider General Practice; PCP Nurse Practitioner Adult Health
DX: K59.00 Constipation, unspecified (principal); M32.9 Systemic lupus erythematosus, unspecified; Z86.010 Personal history of colon polyps; Z87.442 Personal history of urinary calculi; Z87.891 Personal history of nicotine dependence
CPT/HCPCS: 36415; 74177; 80053; 81003; 81025; 83690; 85025; 96374; 96375; 99284; J0131; J2270; J2405; J7120; Q9967

== ENCOUNTER 2021-04-30 21:27 | Inpatient (IN) | payer OTHER, SELFPAY ==
--- NOTE | ~2021-04-30 | CT_ITS ---
EXAMINATION: CT abdomen pelvis w con DATE: 05/01/2021 00:18 INDICATION: Dark red blood in stools one week post colonoscopy with polypectomy. TECHNIQUE: Computed tomography (CT) of the abdomen and pelvis was performed with 100 mL Omnipaque-350 intravenous contrast. Automated exposure control and iterative reconstruction technique were employe d. The dose-length product was 243.46 mGy-cm. COMPARISON: 04/28/2021 FINDINGS: Lung bases are clear. Heart size is normal. No pericardial or pleural effusion. Partially visualized bilateral breast implants with suggestion of intracapsular rupture on the right. Liver, gallbladder, spleen, pancreas, bilateral adrenal glands and left kidney are normal. Mild cortical scarring at the right kidney. Suggestion of a couple bilateral tiny nonobstructing renal stones although specificitie s decreased by the presence of intravenous contrast. Normal appendix. There is suggestion of active e xtravasation of contrast in the cecum which appears to originate near the ileocecal valve. No bowel obstruction. The uterus is not identified and has likely been surgically resected. Small bilateral ad nexal cysts, the largest on the right measuring 1.8 cm with prominent peripheral enhancement consiste nt with a likely corpus luteum cyst. Bladder is normal. Small amount of free fluid in the pelvis. No free intraperitoneal gas. No pathologically enlarged abdominal or pelvic lymphadenopathy. Mild lumbar spondylosis. IMPRESSION: 1. Active contrast extravasation in the cecum which appears to originate near the ileocecal valve. Co rrelate for site of the reported recent polypectomy. Dr. Negrete discussed these findings with Dr. Romel Barros at 9:10 AM. Reviewed, dictated and finalized at location A. IMPRESSION: 1. Active contrast extravasation in the cecum which appears to originate near t he ileocecal valve. Correlate for site of the reported recent polypectomy. Dr. Negrete discussed these findings with Dr. Petty Barros at 9:10 AM.
[2021-04-30 21:56] VITALS: BP 101/71; PULSE 113; RESP 20; TEMP 37; O2SAT 100
[2021-04-30 22:46] LABS: Basophils Percent Auto 0.5 % (0.2-1.2); Eosinophils Absolute Auto 0.2 K/mm3 (0-0.3); Eosinophils Percent Auto 2.9 % (0-4.4); Hematocrit 32.8 % (37.0-47.0); Hemoglobin 10.9 g/dL (12.0-15.0); Immature Granulocyte Absolute 0.02 K/mm3 (0.00-0.031); Immature Granulocyte Percent A 0.2 % (0-0.5); Lymphocytes Absolute Auto 1.95 K/mm3 (0.9-3.2); Lymphocytes Percent Auto 23.5 % (18.3-44.2); Mean Corpuscular HGB Conc 33.2 g/dl (32-36); Mean Corpuscular Hemoglobin 31.3 pg (26-34); Mean Corpuscular Volume 94.3 fl (80-100); Mean Platelet Volume 11.3 fl (7.4-10.4); Monocytes Absolute Auto 0.7 K/mm3 (0.1-0.6); Monocytes Percent Auto 8.8 % (2.6-8.5); Neutrophils Absolute Auto 5.3 K/mm3 (1.3-6.7); Neutrophils Percent Auto 64.1 % (45.5-73.1); Platelet Count Result 278 k/mm3 (150-375); Red Blood Count 3.48 M/mm3 (4.2-5.4); Red Cell Distribution Width 12.7 % (11.5-14.5); White Blood Count 8.3 K/mm3 (4.5-10.0)
[2021-04-30 22:54] LABS: Alanine Aminotransferase 17 U/L (4-35); Albumin Level 4.1 g/dL (3.5-5.1); Alkaline Phosphatase 54 U/L (38-126); Anion Gap 8 mmol/L (8-16); Aspartate Amino Transferase 31 U/L (14-36); Bilirubin,Total 0.3 mg/dL (0.2-1.3); Blood Urea Nitrogen 19 mg/dL (7-17); Carbon Dioxide 28 mmol/L (22-30); Chloride 102 mmol/L (98-107); Estimated CRCL calculation 76 ml/min; Estimated Glomerular Filt Rate > 60; Glucose 95 mg/dL (65-110); INR 0.9; Partial Thromboplastin Time 27.3 SECONDS (22.3-36.8); Potassium 4.1 mmol/L (3.4-5.0); Prothrombin Time 12.2 Seconds (11.1-14.7); Sodium 138 mmol/L (137-145)
[2021-04-30 23:28] VITALS: BP 107/72; PULSE 96
[2021-04-30 23:29] VITALS: BP 108/71; PULSE 99
[2021-04-30 23:30] VITALS: BP 46/20; PULSE 114
--- NOTE | 2021-04-30 23:44 | ED.GENADULT ---
HPI - General Adult General Chief complaint: GI Bleed Stated complaint: bloody stool Time Seen by Provider: 04/30/21 23:29 Source: patient, RN notes reviewed and old records reviewed Mode of arrival: ambulatory Limitations: no limitations History of Present Illness HPI narrative: Patient is a 45-year-old female who presents to emergency department for evaluation of rectal bleeding that began today patient had been seen over the weekend in the ER diagnosed constipation has been taking MiraLAX and having stools patient notes that a week ago she had a colonoscopy where they removed some polyps performed at [facility] patient on arrival to emergency department does not appear distressed she does feel lightheaded patient denies nausea vomiting. Patient's notes that her blood pressures historically have run low and was on medication to raise them. Patient had blood work and imaging 2 days ago diagnosed with constipation Related Data Home Medications Medication Instructions Recorded Confirmed gabapentin 300 mg PO TID 01/17/20 albuterol sulfate [ProAir HFA] 2 puff INHALATION QID PRN 01/22/20 amitriptyline 100 mg PO HS 01/22/20 azathioprine 100 mg PO DAILY 01/22/20 budesonide-formoterol [Symbicort] 2 puff INHALATION Q12H 01/22/20 fludrocortisone 0.1 mg PO DAILY 01/22/20 hydroxychloroquine 400 mg PO DAILY 01/22/20 midodrine 10 mg PO BID 01/22/20 midodrine 15 mg PO QAM 01/22/20 potassium citrate 30 meq PO TID 01/22/20 prednisone 2 mg PO DAILY 01/22/20 rituximab mg IV [id number] 01/22/20 spironolactone 100 mg PO DAILY 01/22/20 Allergies Allergy/AdvReac Type Severity Reaction Status Date / Time prochlorperazine Allergy Intermediate Other Verified 04/30/21 21:59 [From Compazine] meperidine AdvReac Nausea and Verified 04/30/21 21:59 Vomiting Review of Systems Review of Systems: All systems reviewed & are unremarkable except as noted in HPI and below PMFSH Past Medical History Medical History Hypotension Kidney stone Lupus (systemic lupus erythematosus) Tachycardia Surgical History Surgical History H/O lithotripsy Family History Family History (Updated 01/22/20 @ 13:26 by Joi Strong PA-C) Mother Multiple sclerosis Father Pulmonary fibrosis Social History Social History Smoking status: Former smoker Alcohol intake: never Substance use: never Additional occupation/education comments: [employer] Gender identity (if verbalized by the patient): Female Exam Narrative: Exam Narrative: GENERAL: Well-appearing, well-nourished, and in no acute distress. HEAD: Normocephalic, atraumatic. EYES: PERRLA and EOMI. ENT: Nares clear, no rhinorrhea or epistaxis. Mucous membranes moist. CHEST: Clear to auscultation. No respiratory distress. No wheezes rales or rhonchi HEART: Regular rate and rhythm. No murmur heard. Normal peripheral pulses. ABDOMEN: Soft, tenderness in the lower quadrants of the abdomen, nondistended EXTREMITIES: Normal range of motion. No edema. SKIN: Warm, dry, no rash. NEURO: No focal deficits. Alert and oriented x3. Cranial nerves II through XII grossly intact PSYCH: Normal mood and affect. Course Course Emergency Course: Patient presented with rectal bleeding patient had been seen recently had evaluation diagnosed with constipation and is now having red blood per rectum unclear as to whether or not this is related to internal hemorrhoidal bleeding or possibly to the polyp she had removed patient on arrival does not appear distressed she has been given fluids in the emergency department will be placed in hospital to the hospitalist service with GI consult is agreeing with this treatment plan ABCs and vital signs intact and stable at this time Vital Signs Vital signs: Vital Signs Temper
[2021-04-30 23:51] VITALS: BP 101/62; PULSE 92; RESP 20; O2SAT 100
[2021-04-30] MEDS: SODIUM CHLORIDE 0.9% IV 1,000 ML 999 ML IV CONT (23:52)
[2021-04-30] MEDS: PANTOPRAZOLE SODIUM IV 40 MG VIAL IV PUSH (23:53)
[2021-05-01] VITALS (17 sets, daily range): BP systolic 93–130; BP diastolic 49–82; PULSE 86–97; RESP 14–96; TEMP 36.4–36.7; O2SAT 96–100; BMI 23.1
[2021-05-01] MEDS: SODIUM CHLORIDE 0.9% IV 1,000 ML 999 ML IV CONT (01:51)
[2021-05-01] MEDS: MORPHINE SULFATE (*CRX) 2 MG/ML INJ 4 MG (03:02)
--- NOTE | 2021-05-01 03:08 | PM.IMHP ---
H&P: HPI History of Present Illness Date/Time: 05/01/21 03:08 Chief Complaint: BRBPR Narrative: THIS IS A 45-YEAR-OLD FEMALE WITH PAST MEDICAL HISTORY SIGNIFICANT FOR RHEUMATOID ARTHRITIS, SYSTEMIC LUPUS ERYTHEMATOSUS, ON DMARDS RECENT COLONOSCOPY THAT SHOWED 4 POLYPS PER PATIENT WHICH WERE EXCISED THIS WAS ROUGHLY ABOUT A WEEK AGO. SHE HAS BEEN IN HER USUAL STATE OF HEALTH UP UNTIL YESTERDAY WHEN SHE HAD ABDOMINAL PAIN WHICH IS CONSTANT PER THE PATIENT LOCALIZED TO THE [facility] SHE HAD AN EPISODE OF BRIGHT RED BLOOD PER RECTUM WHICH THE PATIENT QUALIFIES COPIOUS AMOUNT. SHE DENIES ANY NAUSEA VOMITING HEMATEMESIS MELENA THIS IS THE 1ST TIME SOMETHING LIKE THIS HAPPENS TO HER SHE FELT DIZZY WHEN THIS HAPPENED AND SHE DECIDED TO COME TO THE EMERGENCY ROOM. PRELIMINARY WORKUP IN THE EMERGENCY ROOM WAS SIGNIFICANT FOR HEMOGLOBIN OF 10. Review of Systems Review of Systems: Narrative: BRBPR Constitutional: Constitutional: Denies chills, Denies fatigue, Denies fever(s), Denies malaise, Denies poor appetite and Denies weakness Eyes: Eyes: Denies change in vision ENT: Denies dysphagia, Denies nasal congestion, Denies nasal discharge, Denies nasal obstruction and Denies odynophagia Cardiovascular: Cardiovascular: Denies irregular heart rhythm, Denies lightheadedness, Denies radiating jaw, neck or arm pain, Denies palpitations and Denies dyspnea on exertion Respiratory: Respiratory: Denies cough and Denies dyspnea Gastrointestinal: Gastrointestinal: Reports abdominal pain, Denies melena, Reports hematochezia, Reports GI cramping, Denies dysphagia, Denies dyspepsia, Denies heartburn, Denies diarrhea, Denies nausea and Denies vomiting Genitourinary: Genitourinary: Reports no additional female genitourinary complaints Musculoskeletal: Musculoskeletal: Reports no additional musculoskeletal complaints Integumentary/Breasts: Skin/Breast: Reports system reviewed and no additional complaints, except as docu Neurologic: Reports system reviewed and no additional complaints, except as documented Psychiatric: Psychiatric: Reports no additional psychiatric complaints Endocrine: Endocrine: Reports no additional endocrine complaints Hematologic/Lymphatic: Hematologic/Lymphatic: Reports no additional hematologic/lymphatic complaints Allergic/Immunologic: Allergic/Immunologic: Reports no additional allergic/immunologic complaints PMFSH Past Medical History Medical History Hypotension Kidney stone Lupus (systemic lupus erythematosus) Tachycardia Surgical History Surgical History H/O lithotripsy Family History Family History (Updated 01/22/20 @ 13:26 by Joi Strong PA-C) Mother Multiple sclerosis Father Pulmonary fibrosis Social History Social History Smoking status: Former smoker Alcohol intake: never Substance use: never Additional occupation/education comments: [employer] Gender identity (if verbalized by the patient): Female Meds Home Medications and Allergies Home Medications Medication Instructions Recorded Confirmed Type gabapentin 300 mg PO TID 01/17/20 History albuterol sulfate [ProAir HFA] 2 puff INHALATION QID PRN 01/22/20 History amitriptyline 100 mg PO HS 01/22/20 History azathioprine 100 mg PO DAILY 01/22/20 History budesonide-formoterol [Symbicort] 2 puff INHALATION Q12H 01/22/20 History fludrocortisone 0.1 mg PO DAILY 01/22/20 History hydroxychloroquine 400 mg PO DAILY 01/22/20 History midodrine 10 mg PO BID 01/22/20 History midodrine 15 mg PO QAM 01/22/20 History potassium citrate 30 meq PO TID 01/22/20 History prednisone 2 mg PO DAILY 01/22/20 History rituximab mg IV [id number] 01/22/20 History spironolactone 100 mg PO DAILY 01/22/20 History dicyclomine 10 mg PO TID PRN #10 c
[2021-05-01] MEDS: LACTATED RINGERS 1,000 ML 125 ML IV CONT ×2 (03:46→12:05)
[2021-05-01 06:30] LABS: Hematocrit 24.9 % (37.0-47.0); Hemoglobin 7.9 g/dL (12.0-15.0)
--- NOTE | 2021-05-01 08:21 | ADMGEN ---
05/01/21 at 0500--This patient, Carlota Walker, was admitted to 3 [facility] Surg Room 314-01. Patient/family oriented to hospital policies and general routines including ID bracelet, bed and alarms, visiting hours, pain management, procedures, bathroom and other care routines, personal items, smoking policy, room service/diet, and visiting hours. Information on how to activate the Rapid Response Team has been discussed. Patient/Family are encouraged to report perceived risks to care and to ask questions if they do not understand what they are told or what they should do. TDialRNC
[2021-05-01] MEDS: PANTOPRAZOLE SODIUM IV 40 MG VIAL IV PUSH ×2 (09:12→20:09)
[2021-05-01 09:15] LABS: Add Urine Microscopic? NO; Appearance Urine Clear (Clear); Bilirubin Urine Negative (Negative); Blood Urine Negative (Negative); Color Urine Straw (Yellow); Glucose Urine UA Negative (Negative); Ketones Urine Negative (Negative); Leukocyte Esterase Ur Negative LEU/UL (Negative); Nitrate Urine Negative (Negative); Protein Urine Negative (Negative); Urobilinogen Urine Negative mg/dL (<2.0)
[2021-05-01 09:21] LABS: Specific Grav Ur 1.038 (1.001-1.035)
--- NOTE | 2021-05-01 11:27 | PC.NURSE ---
Report called to [facility].
--- NOTE | 2021-05-01 11:37 | PC.NURSE ---
To ICU via bed. at bedside.
[2021-05-01 12:00] LABS: Hematocrit 23.9 % (37.0-47.0); Hemoglobin 7.5 g/dL (12.0-15.0)
--- NOTE | 2021-05-01 12:17 | PM.CNGS ---
Assessment and Plan Assessment and plan (1) Abnormal CT of the abdomen: Code(s): R93.5 - Abnormal findings on diagnostic imaging of other abdominal regions, including retroperitoneum Status: Acute Assessment and Plan: CT scan reviewed and discussed with the patient in detail. This suggests active contrast extravasation in the cecum which appears to originate near the ileocecal valve. This could correlate with the area that she had a polypectomy during her recent colonoscopy that could potentially have some bleeding, causing the drop in her hemoglobin. At this time, she is symptomatic with her anemia, but appears hemodynamically stable. Her blood pressure is on the low end of normal, but her blood pressure normally runs low and she requires midodrine to keep this normal. Heart rate is normal. With this being said, she continues to have very frequent bloody bowel movements and we will need to closely monitor for any changes. I discussed the case with Dr. Suh and he would like to hold off on any blood transfusions unless her hemoglobin drops below 7.0 or she becomes hemodynamically unstable. There is a chance that the bleeding could stop spontaneously, but we would like to transfer her to the IMU for closer monitoring. Monitor serial labs. If she becomes hemodynamically unstable or continues to actively bleed, then she may require surgical intervention. Will keep her NPO at this time with IV fluids and analgesics. Thank you for allowing us to see the patient in consultation and we will continue to follow along with you. (2) Anemia: Code(s): D64.9 - Anemia, unspecified Status: Acute Assessment and Plan: Suspect this is secondary to blood loss. Hgb dropped from 10.9 to 7.9 this morning. Repeat hgb at noon was 7.5. Continue to closely monitor the patient and serial H/Hs. See plan above. (3) S/P colonoscopy with polypectomy: Code(s): Z98.890 - Other specified postprocedural states Status: Acute Assessment and Plan: Colonoscopy with polypectomy on 04/19/21 at [place]. Patient was able to show me her patient portal with the pathology results from her recent colonoscopy. There were polyps removed/biopsies in the cecum (sessile serrated lesion/adenoma), transverse (tubular adenoma), and rectosigmoid (hyperplastic polyp). The area of concern for active contrast extravasation on the CT scan could correlate with the polypectomy in the cecum. See plan above. (4) Bright red rectal bleeding: Code(s): K62.5 - Hemorrhage of anus and rectum Status: Acute Assessment and Plan: See plan above. (5) Abdominal pain: Code(s): R10.9 - Unspecified abdominal pain Status: Acute Assessment and Plan: Continue analgesics as needed. See plan above. 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 Discussed with the patient that her immunosuppressive therapy could increase risks for surgery and healing if intervention is needed. She understands. 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 Cortes, who manages her RA and Lupus. 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 Juanito Babin. Additional Plan I have discussed the patient's case and plan of care with Dr. Suh. History of Present Illness
--- NOTE | 2021-05-01 13:01 | WPDGICN ---
Assessment and Plan Assessment and plan (1) Abnormal CT of the abdomen: Code(s): R93.5 - Abnormal findings on diagnostic imaging of other abdominal regions, including retroperitoneum Status: Acute Assessment and Plan: it appears that she has a perforation in the cecum. This is likely due to use of a hot biopsy forceps in the relatively thin walled cecum. (2) Rectal bleeding: Code(s): K62.5 - Hemorrhage of anus and rectum Status: Acute Assessment and Plan: The blood was bright red suggesting it arises from the left colon, or could simply be rapid transit. It may therefore not be from the same site is her cecal perforation. However would be risky to perform a colonoscopy and give bowel prep until the perforation is addressed. Therefore we are awaiting surgical consult (3) Anemia: Code(s): D64.9 - Anemia, unspecified Status: Acute Assessment and Plan: clearly she has lost a significant amount of blood. We will need to transfuse her if her counts drop any further. If not for the possibility of a perforation, I would simply prep for perform a colonoscopy to address the bleeding spot GI Consult Note Consult date/time: 05/01/21 13:01 HPI: Carlota Walker is a 45 year old female who was admitted through the emergency room with rectal bleeding and abdominal pain. On she had a colonoscopy at [facility]. She had complained of some pain afterwards but was not severe. She came to the emergency room on Friday and was told that her pain was likely due to constipation. When she began bleeding she came back yesterday and was subsequently admitted. She states that 1 time last night she was passing blood in a bowel movement about every 5 minutes, and that her bowel movements were basically nothing but blood. She has not had a fever. She has not been vomiting. She states that she does not take NSAIDs or aspirin and does not have a bleeding tendency. She gave the op note to 1 of the hospitalists. She states that she had 4 polyps, each described as 2 mm and removed with hot biopsy forceps. I do not imagine that hot biopsy forceps would be necessary for a 2 mm polyp but she thinks that is what it stated. The CT scan has been interpreted as showing a leakage of contrast in the cecum. There is however no free air Review of Systems Review of Systems: All systems reviewed & are unremarkable except as noted in HPI and below PMFSH Past Medical History Medical History Hypotension Kidney stone Lupus (systemic lupus erythematosus) POTS (postural orthostatic tachycardia syndrome) RA (rheumatoid arthritis) Raynaud's disease Surgical History Surgical History H/O lithotripsy History of breast augmentation History of laparoscopy-assisted vaginal hysterectomy History of tonsillectomy Family History Family History Mother Multiple sclerosis Father Pulmonary fibrosis Social History Social History Smoking status: Never smoker Alcohol intake: never Substance use: never Substance use type: does not use Additional occupation/education comments: [employer] Gender identity (if verbalized by the patient): Female Sexual Orientation (if Verbalized by the Patient): Straight or Heterosexual Spiritual care concerns: No Meds Home Medications and Allergies Home Medications Medication Instructions Recorded Confirmed Type gabapentin [Neurontin] 300 mg PO TID 01/17/20 05/01/21 History albuterol sulfate [ProAir HFA] 2 puff INHALATION QID PRN 01/22/20 05/01/21 History amitriptyline 100 mg PO HS 01/22/20 05/01/21 History azathioprine 100 mg PO DAILY 01/22/20 05/01/21 History budesonide-formoterol [Symbicort] 2 puff INHALATION Q12H 01/22/2004/13
--- NOTE | 2021-05-01 15:06 | PM.IMPN ---
Progress Note: A&P Assessment and Plan (1) GI bleed: Code(s): K92.2 - Gastrointestinal hemorrhage, unspecified Status: Acute Assessment and Plan: Presented with multiple episodes of bright red blood per rectum with associated lower abdominal pain. appreciate gastroenterology consultation continue Protonix (2) Abnormal CT of the abdomen: Code(s): R93.5 - Abnormal findings on diagnostic imaging of other abdominal regions, including retroperitoneum Status: Acute Assessment and Plan: CT scan demonstrated active contrast extravasation in the cecum, appears to originate near the ileocecal valve. underwent screening colonoscopy on 04/19/2021 at [facility] with several polypectomies including a sessile serrated lesion/adenoma of the cecum. abdominal CT findings may correlate with polypectomy site in the cecum. general surgery has been consulted and is following. Input is appreciated. maintain NPO diet and monitor blood counts closely (3) Acute blood loss anemia: Code(s): D62 - Acute posthemorrhagic anemia Status: Acute Assessment and Plan: Secondary to GI bleed as above. Hemoglobin was 10.9 at presentation and has declined down to 7.5 this afternoon. She is symptomatic with dyspnea, dizziness, intermittent tachycardia, and relative hypotension which is improving with last BP 124/73 (she notes her BP typically runs low). monitor H&H q6h holding on transfusion at this time. transfuse if hemoglobin <7.0 or if hemodynamically unstable planning for surgical intervention if continued blood loss she has been transferred to IMU for closer monitoring. Continue monitoring on telemetry. 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 She reports having bright red blood per rectum every 1-2 hours. She estimates 1-2 tbsp of blood with each episode. she is feeling very weak. She gets short of breath when walking back from the bathroom and is lightheaded. She feels cold. She endorses 7/10 abdominal pain that she reports as a constant aching. She denies chest pain or palpitations. denies nausea, vomiting. Review of Systems Review of Systems: All systems reviewed & are unremarkable except as noted in HPI and below Exam Narrative: Exam Narrative: Ms. Walker is A well-nourished, well-appearing 45-year-old female who is lying supine in bed. she appears comfortable and is in NARD. Neuro: awake, alert and oriented x4, speech clear, no focal neuro deficits noted HEENMT: normocephalic, atraumatic, EOMI, sclerae anicteric, moist oral mucosa Neck: supple, no lymphadenopathy Respiratory: clear to auscultation bilaterally, nonlabored breathing Cardio: regular rate, regular rhythm with S1-S2 Abdomen: nondistended, normoactive bowel sounds, soft, tender to palpation in right and left lower quadrant, no rigidity or guarding Extremities: no edema, erythema, or tenderness to palpation, DP pulses 2+ bilaterally. brisk capillary refill Skin: slight pallor, no rashes or lesions, warm and dry Psych: appropriate mood and affect, judgment and insight intact Objective Data Vital Signs Vital Signs: Vital Signs - 24 hr 04/30/21 21:56 04/30/21 23:28 04/30/21 23:29 Temperature 98.6 F Pulse Rate 113 H 96 99 Respiratory Rate 20 Blood Pressure 101/71 107/72 108/71 Pulse Oximetry
[2021-05-01] MEDS: MORPHINE SULFATE (*CRX) 2 MG/ML INJ IV PUSH ×2 (15:22→20:09)
[2021-05-01] MEDS: PEG (High)/E-LYTE SOLN 4,000 ML BTL 4000 ML PO (17:02)
[2021-05-01] MEDS: ONDANSETRON INJ 4 MG/2 ML VIAL IV PUSH (17:38)
[2021-05-01 18:29] LABS: Hematocrit 29.7 % (37.0-47.0); Hemoglobin 9.6 g/dL (12.0-15.0)
[2021-05-01] MEDS: LACTATED RINGERS 1,000 ML 85 ML IV CONT (20:08)
[2021-05-02] VITALS (10 sets, daily range): BP systolic 98–128; BP diastolic 56–75; PULSE 68–97; RESP 15–26; TEMP 36.6–36.8; O2SAT 97–100
[2021-05-02] MEDS: ONDANSETRON INJ 4 MG/2 ML VIAL IV PUSH ×3 (01:35→19:00)
[2021-05-02 01:49] LABS: Hematocrit 26.2 % (37.0-47.0); Hemoglobin 8.6 g/dL (12.0-15.0)
[2021-05-02 04:12] LABS: Basophils Percent Auto 0.7 % (0.2-1.2); Eosinophils Absolute Auto 0.2 K/mm3 (0-0.3); Eosinophils Percent Auto 3.9 % (0-4.4); Hematocrit 25.2 % (37.0-47.0); Hemoglobin 8.3 g/dL (12.0-15.0); Immature Granulocyte Absolute 0.01 K/mm3 (0.00-0.031); Immature Granulocyte Percent A 0.2 % (0-0.5); Lymphocytes Absolute Auto 1.16 K/mm3 (0.9-3.2); Lymphocytes Percent Auto 28.4 % (18.3-44.2); Mean Corpuscular HGB Conc 32.9 g/dl (32-36); Mean Corpuscular Hemoglobin 31.4 pg (26-34); Mean Corpuscular Volume 95.5 fl (80-100); Mean Platelet Volume 11.7 fl (7.4-10.4); Monocytes Absolute Auto 0.3 K/mm3 (0.1-0.6); Monocytes Percent Auto 8.3 % (2.6-8.5); Neutrophils Absolute Auto 2.4 K/mm3 (1.3-6.7); Neutrophils Percent Auto 58.5 % (45.5-73.1); Platelet Count Result 181 k/mm3 (150-375); Red Blood Count 2.64 M/mm3 (4.2-5.4); Red Cell Distribution Width 12.4 % (11.5-14.5); White Blood Count 4.1 K/mm3 (4.5-10.0)
[2021-05-02] MEDS: LACTATED RINGERS 1,000 ML 85 ML IV CONT (04:34)
[2021-05-02 04:44] LABS: Anion Gap 6 mmol/L (8-16); Blood Urea Nitrogen 6 mg/dL (7-17); Calcium 8.7 mg/dL (8.4-10.2); Carbon Dioxide 25 mmol/L (22-30); Chloride 102 mmol/L (98-107); Estimated CRCL calculation 84 ml/min; Estimated Glomerular Filt Rate > 60; Glucose 79 mg/dL (65-110); Potassium 3.5 mmol/L (3.4-5.0); Sodium 133 mmol/L (137-145)
[2021-05-02] MEDS: MORPHINE SULFATE (*CRX) 2 MG/ML INJ IV PUSH (06:19)
--- NOTE | 2021-05-02 08:17 | PM.PNGS ---
Progress Note: A&P Assessment and Plan (1) S/P colonoscopy with polypectomy: Onset Date: ~04/2021 Code(s): Z98.890 - Other specified postprocedural states Status: Acute Assessment and Plan: The patient had colonoscopy at [facility] about 7-10 days ago. A serrated polyp was removed in the cecum. CT scan yesterday showed extravasation of some IV contrast into the cecum suggestive of acute GI bleed in the cecum. This apparently has stopped. Vital signs stable overnight. Hemoglobin is actually increased compared to to draws yesterday. (2) GI bleed: Onset Date: ~05/01/21 Code(s): K92.2 - Gastrointestinal hemorrhage, unspecified Status: Acute Assessment and Plan: This apparently has stopped. Vital signs stable overnight. Hemoglobin is actually increased compared to to draws yesterday. (3) Abdominal pain: Onset Date: ~04/30/21 Code(s): R10.9 - Unspecified abdominal pain Status: Acute Assessment and Plan: Still mild right lower quadrant pain. Unknown etiology. (4) Acute blood loss anemia: Onset Date: ~04/2021 Code(s): D62 - Acute posthemorrhagic anemia Status: Acute Assessment and Plan: Suspected to be secondary to GI bleed from polypectomy site most likely in the cecum. (5) POTS (postural orthostatic tachycardia syndrome): Onset Date: Unknown Code(s): I49.8 - Other specified cardiac arrhythmias Status: Acute Assessment and Plan: Patient carried this diagnosis upon admission. Will need to be careful as we begin to have her ambulate. (6) RA (rheumatoid arthritis): Code(s): M06.9 - Rheumatoid arthritis, unspecified Status: Acute (7) SLE (systemic lupus erythematosus): Code(s): M32.9 - Systemic lupus erythematosus, unspecified Status: Acute Additional Plan Since she could have colonoscopy if she starts to rebleed will keep her on clear liquid diet for breakfast and lunch. If Dr. Calle is not planning any procedure could consider increasing her diet to fulls or soft for supper and possible discharge tomorrow if she remains stable. Would like to get a few more Q 6 hour H&Hs to see how these look. Time Spent With Patient Time with patient: 15 - 25 minutes Subjective Subjective Date/Time Seen: 07/21/21 08:17 Patient lying in bed when I entered the room. She states that the last few stools during her bowel prep were clear without blood. She has not had a any further bloody stools since midnight last night. She still has some right lower quadrant abdominal discomfort which she took something for its 0 600. Positive flatus, no bloating Review of Systems Constitutional: Constitutional: Reports no additional constitutional complaints ENT: Reports other (Mucous Membranes moist.) Cardiovascular: Cardiovascular: Denies dyspnea Respiratory: Respiratory: Denies pain on inspiration and Denies dyspnea Gastrointestinal: Gastrointestinal: Reports abdominal pain ( Mild in the right lower quadrant, less than yesterday.) Genitourinary: Genitourinary: Reports no additional female genitourinary complaints Musculoskeletal: Musculoskeletal: Reports other (No calf swelling or edema) Integumentary/Breasts: Skin/Breast: Reports system reviewed and no additional complaints, except as docu Exam Const: General: cooperative, no acute distress, alert and awake Orientation/consciousness: patient oriented x3 HENMT: Mouth: Yes moist mucous membranes Neck: Neck: normal visual inspection Chest: Chest palpation & inspection: normal inspection of the chest Resp: Effort & Inspection: normal respiratory effort Auscultation: clear to auscultation bilaterally Cardio: Jugular venous distension: no JVD Rate: regular rate Rhythm: regular rhythm GI: GI Palp: Yes abdominal tenderness ( mild, in right lower quadrant) and Yes Soft to palpation Auscultation: normal bowel sounds Rectal Exam: d
[2021-05-02] MEDS: LACTATED RINGERS 1,000 ML 150 ML IV CONT (09:20)
--- NOTE | 2021-05-02 09:58 | WPDANESEPPF ---
Anes - Initial Pre Proc Eval Procedure: Operation Date: 05/02/21 10:30 Proposed Procedures p Colonoscopy - Anant Calle MD Date/Time: 05/02/21 09:58 Surgeon: Petty Jorge PA-C Pre Op Diagnosis: Rectal Bleeding,Anemia,Abdominal Pain Patient Data Age: 45 Gender: F Height: 1.6 m Weight: 59.2 kg Last Vital Signs Temp 36.6 C 05/02/21 09:17 Pulse 97 05/02/21 09:17 Resp 26 H 05/02/21 09:17 BP 103/63 05/02/21 09:17 Pulse Ox 99 05/02/21 09:17 Allergies Allergy/AdvReac Type Severity Reaction Status Date / Time prochlorperazine Allergy Intermediate Other Verified 05/02/21 09:16 [From Compazine] meperidine AdvReac Nausea and Verified 05/02/21 09:16 Vomiting Home Medications Medication Instructions Recorded Confirmed Type gabapentin [Neurontin] 300 mg PO TID 01/17/20 05/01/21 History albuterol sulfate [ProAir HFA] 2 puff INHALATION QID PRN 01/22/20 05/01/21 History amitriptyline 100 mg PO HS 01/22/20 05/01/21 History azathioprine 100 mg PO DAILY 01/22/20 05/01/21 History budesonide-formoterol [Symbicort] 2 puff INHALATION Q12H 01/22/20 05/01/21 History fludrocortisone 0.1 mg PO DAILY 01/22/20 05/01/21 History hydroxychloroquine [Plaquenil] 400 mg PO DAILY 01/22/20 05/01/21 History midodrine 10 mg PO BID 01/22/20 05/01/21 History midodrine 15 mg PO QAM 01/22/20 05/01/21 History potassium citrate 30 meq PO TID 01/22/20 05/01/21 History prednisone 2 mg PO DAILY 01/22/20 05/01/21 History spironolactone [Aldactone] 100 mg PO DAILY 01/22/20 05/01/21 History dicyclomine 10 mg PO TID PRN #10 cap 04/28/21 05/01/21 Rx polyethylene glycol 3350 [Miralax] 17 g PO DAILY #119 g 04/28/21 05/01/21 Rx belimumab [Benlysta] 200 mg SUBCUT WEEKLY 05/01/21 05/01/21 History cyclobenzaprine 10 mg PO BID PRN 05/01/21 05/01/21 History Laboratory Tests 05/01/21 05/01/21 05/02/21 11:22 18:19 01:43 WBC RBC Hgb 7.5 g/dL L g/dL 9.6 g/dL L g/dL 8.6 g/dL L g/dL (12.0-15.0) (12.0-15.0) (12.0-15.0) Hct 23.9 % L % 29.7 % L % 26.2 % L % (37.0-47.0) (37.0-47.0) (37.0-47.0) MCV MCH MCHC RDW Plt Count MPV Immature Gran % (Auto) Neut % (Auto) Lymph % (Auto) Kane % (Auto) Eos % (Auto) Baso % (Auto) Lymph # (Auto) Kane # (Auto) Eos # (Auto) Baso # (Auto) Abs Immat Gran (auto) Absolute Neuts (auto) Absolute Nucleated RBC Nucleated RBC % Sodium Potassium Chloride Carbon Dioxide Anion Gap BUN Creatinine Estim Creat Clear Calc Estimated GFR Glucose Calcium 05/02/21 05/02/21 04:00 04:00 WBC 4.1 K/mm3 L K/mm3 (4.5-10.0) RBC 2.64 M/mm3 L M/mm3 (4.2-5.4) Hgb 8.3 g/dL L g/dL (12.0-15.0) Hct 25.2 % L % (37.0-47.0) MCV 95.5 fl fl (80-100) MCH 31.4 pg pg (26-34) MCHC 32.9 g/dl g/dl (32-36) RDW 12.4 % % (11.5-14.5) Plt Count 181 k/mm3 k/mm3 (150-375) MPV 11.7 fl H fl (7.4-10.4) Immature Gran % (Auto) 0.2 % % (0-0.5) Neut % (Auto) 58.5 % % (45.5-73.1) Lymph % (Auto) 28.4 % % (18.3-44.2) Kane % (Auto) 8.3 % % (2.6-8.5) Eos % (Auto) 3.9 % % (0-4.4) Baso % (Auto) 0.7 % % (0.2-1.2) Lymph # (Auto) 1.16 K/mm3 K/mm3 (0.9-3.2) Kane # (Auto) 0.3 K/mm3 K/mm3 (0.1-0.6) Eos # (Auto) 0.2 K/mm3 K/mm3 (0-0.3) Baso # (Auto) 0.0 K/mm3 K/mm3 (0.0-0.1) Abs Immat Gran (auto) 0.01 K/mm3 K/mm3 (0.00-0.031) Absolute Neuts (auto) 2.4 K/mm3 K/mm3 (1.3-6.7) Absolute Nucleated RBC 0.0 K/mm3 K/mm3 (0.0-0.012) Nucleated RB
[2021-05-02] MEDS: PANTOPRAZOLE SODIUM IV 40 MG VIAL IV PUSH ×2 (12:05→20:28)
[2021-05-02 13:02] LABS: Hematocrit 27.7 % (37.0-47.0); Hemoglobin 9.2 g/dL (12.0-15.0)
--- NOTE | 2021-05-02 14:37 | PM.IMPN ---
Progress Note: A&P Assessment and Plan (1) GI bleed: Onset Date: ~05/01/21 Code(s): K92.2 - Gastrointestinal hemorrhage, unspecified Status: Acute Assessment and Plan: Presented with multiple episodes of bright red blood per rectum with associated lower abdominal pain. CT scan of the abdomen and pelvis showed early case of contrast in the cecum, there is however no free air - appreciate GI evaluation -05/02:05/02: Patient had a colonoscopy this morning which showed single superficial 8 mm ulcer with a visible vessel in the cecum. The ulcer was probably the stigmata of bleeding. clipping of the ulcer in the cecum was done. - will continue to monitor for any kind of bleeding, monitor hemoglobin and hemodynamics (2) Abnormal CT of the abdomen: Code(s): R93.5 - Abnormal findings on diagnostic imaging of other abdominal regions, including retroperitoneum Status: Acute Assessment and Plan: CT scan demonstrated active contrast extravasation in the cecum, appears to originate near the ileocecal valve. underwent screening colonoscopy on 04/19/2021 at [facility] with several polypectomies including a sessile serrated lesion/adenoma of the cecum. abdominal CT findings may correlate with polypectomy site in the cecum. general surgery has been consulted and is following. Input is appreciated. patient has been started on diet by GI (3) Acute blood loss anemia: Onset Date: ~04/2021 Code(s): D62 - Acute posthemorrhagic anemia Status: Acute Assessment and Plan: Secondary to GI bleed as above. Hemoglobin was 10.9 at presentation and has declined down to 7.5 this afternoon. She is symptomatic with dyspnea, dizziness, intermittent tachycardia, and relative hypotension which is improving with last BP 124/73 (she notes her BP typically runs low). monitor H&H q6h - hemoglobin has been stable and improvement holding on transfusion at this time. transfuse if hemoglobin <7.0 or if hemodynamically unstable planning for surgical intervention if continued blood loss (4) Immunosuppression due to drug therapy: Code(s): D84.821 - Immunodeficiency due to drugs; Z79.899 - Other [employer] (current) drug therapy Status: Acute Assessment and Plan: She has several autoimmune conditions including rheumatoid arthritis and systemic lupus erythematosus Immunotherapy currently on hold including rituximab, hydroxychloroquine, belimumab, and azathioprine Additional Plan discussed with patient and her at bedside and updated on patient's condition and plan of care. I answered all questions Subjective Date/time seen: 05/02/21 14:37 Interval history: Carlota Walker is a 45-year-old female with history of rheumatoid arthritis, Raynaud's disease, SLE, and POTS who is seen in follow-up for GI bleeding. recently had polypectomy at [facility], and reported having bright red blood per rectum every 1-2 hours. she also felt weak and fatigued. With lightheadedness . She endorses 7/10 abdominal pain that she reports as a constant aching. She denies chest pain or palpitations. denies nausea, vomiting. 05/02/2021: Patient being seen for hospitalist team. patient was transferred medical floor to the ICU as and intermediate unit patient for hypotension. Looking back is only 1 episode of hypotension and the blood pressures read as 40/2, prior to that and after that patient has had systolic blood pressures which have been stable and over 110 mmHg. patient's hemoglobin has been stable. 05/02: Patient had a colonoscopy this morning which showed single superficial 8 mm ulcer with a visible vessel in the cecum. The ulcer was probably the stigmata of bleeding. clipping of the ulcer in the cecum was done. - Patient currently denies chest pain, shortness of breath abdominal pain, nausea, vomiting. Hemodynamically stable Review of Systems Review of Syst
[2021-05-02 18:12] LABS: Hematocrit 29.6 % (37.0-47.0); Hemoglobin 9.8 g/dL (12.0-15.0)
[2021-05-03] VITALS (14 sets, daily range): BP systolic 52–128; BP diastolic 25–73; PULSE 89–135; RESP 16–18; TEMP 36.8–37.4; O2SAT 98–100
[2021-05-03 01:10] LABS: Hematocrit 28.9 % (37.0-47.0); Hemoglobin 9.7 g/dL (12.0-15.0)
--- NOTE | 2021-05-03 01:32 | PC.NURSE ---
Report given to Arianna SANCHEZ
--- NOTE | 2021-05-03 02:00 | PC.NURSE ---
This patient, Carlota Walker, was transferred to [facility] on 05/03/21 at 0209. Personal belongings sent with patient. Report given to Otilia. Appropriate documentation sent with patient.
--- NOTE | 2021-05-03 02:15 | ADMGEN ---
This patient, Carlota Walker, was admitted to 3 Med Surg Room 321-01. Denies pain & states having some slight nausea. Call light within reach. Updated on POC.
[2021-05-03 06:41] LABS: Basophils Percent Auto 0.4 % (0.2-1.2); Eosinophils Absolute Auto 0.2 K/mm3 (0-0.3); Eosinophils Percent Auto 2.9 % (0-4.4); Hematocrit 29.5 % (37.0-47.0); Hemoglobin 9.9 g/dL (12.0-15.0); Immature Granulocyte Absolute 0.01 K/mm3 (0.00-0.031); Immature Granulocyte Percent A 0.1 % (0-0.5); Lymphocytes Absolute Auto 1.43 K/mm3 (0.9-3.2); Lymphocytes Percent Auto 19.8 % (18.3-44.2); Mean Corpuscular HGB Conc 33.6 g/dl (32-36); Mean Corpuscular Hemoglobin 31.2 pg (26-34); Mean Corpuscular Volume 93.1 fl (80-100); Mean Platelet Volume 11.7 fl (7.4-10.4); Monocytes Absolute Auto 0.7 K/mm3 (0.1-0.6); Monocytes Percent Auto 9.1 % (2.6-8.5); Neutrophils Absolute Auto 4.9 K/mm3 (1.3-6.7); Neutrophils Percent Auto 67.7 % (45.5-73.1); Platelet Count Result 288 k/mm3 (150-375); Red Blood Count 3.17 M/mm3 (4.2-5.4); Red Cell Distribution Width 12.2 % (11.5-14.5); White Blood Count 7.2 K/mm3 (4.5-10.0)
[2021-05-03 06:50] LABS: Anion Gap 10 mmol/L (8-16); Blood Urea Nitrogen 11 mg/dL (7-17); Calcium 9.4 mg/dL (8.4-10.2); Carbon Dioxide 23 mmol/L (22-30); Chloride 101 mmol/L (98-107); Estimated CRCL calculation 65 ml/min; Estimated Glomerular Filt Rate > 60; Glucose 113 mg/dL (65-110); Magnesium 1.8 mg/dL (1.6-2.3); Phosphorus 4.3 mg/dL (2.5-4.5); Potassium 3.4 mmol/L (3.4-5.0); Sodium 134 mmol/L (137-145)
--- NOTE | 2021-05-03 07:25 | WPDGIPROGNO ---
Progress Note: A&P Assessment and Plan (1) Acute blood loss anemia: Onset Date: ~04/2021 Code(s): D62 - Acute posthemorrhagic anemia Status: Acute Assessment and Plan: the bleeding site was found, and ulceration with visible vessel in the cecum, the side of of recent hot biopsy polypectomy. her hemoglobin is stable, 9.7 (2) POTS (postural orthostatic tachycardia syndrome): Onset Date: Unknown Code(s): I49.8 - Other specified cardiac arrhythmias Status: Acute Assessment and Plan: she has not been out of bed yet today. I told her she should that her feet dangling the side of the bed for least 15 or 20 seconds Additional Plan I instructed her to take iron, once daily for the next 30 days or so. She will follow-up with her primary care physician for lab work in 2 weeks Subjective Date/time seen: 05/03/21 07:25 After the colonoscopy yesterday she was moved to the [facility] room. She was feeling lightheaded, particularly when getting out of bed. She is able to eat and tolerated her dinner. She has seen no further blood in her stools. She no longer has abdominal pain Review of Systems Review of Systems: All systems reviewed & are unremarkable except as noted in HPI and below Exam Const: General: healthy appearing and no acute distress GI: Inspection: normal to inspection GI Palp: No abdominal tenderness and Yes Soft to palpation Auscultation: normal bowel sounds Skin: General skin exam: pallor Objective Data Vital Signs Vital Signs: Vital Signs - 24 hr 05/02/21 08:00 05/02/21 09:17 05/02/21 10:56 Temperature 36.6 C Pulse Rate 93 97 68 Respiratory Rate 15 26 H 25 H Blood Pressure 103/63 103/63 110/59 L Pulse Oximetry 100 99 100 05/02/21 11:06 05/02/21 11:16 05/02/21 23:11 Temperature 36.6 C Pulse Rate 93 90 94 Respiratory Rate 16 21 H 16 Blood Pressure 101/65 103/60 98/56 L Pulse Oximetry 100 100 97 05/03/21 02:06 05/03/21 05:55 Temperature 36.8 C 36.8 C Pulse Rate 95 100 Respiratory Rate 18 16 Blood Pressure 109/53 L 128/68 Pulse Oximetry 100 100 Intake/Output Intake/Output: Intake & Output 04/30/21 05/01/21 05/02/21 05/03/21 23:59 23:59 23:59 23:59 Intake Total 4730 5240 200 Output Total 1200 300 450 Balance 3530 4940 -250 Meds/Results Medications: Active Medications Generic Name Dose Route Start Last Admin Trade Name Freq PRN Reason Stop Dose Admin Albuterol 2 puff 05/01/21 09:18 Albuterol Sulfate (*Sp) Aerosol 1 Puff INHALATION QID PRN Dyspnea Morphine Sulfate 2 mg 05/01/21 12:42 05/02/21 06:19 Morphine Sulfate (*Crx) 2 Mg/Ml Inj IV PUSH 2 mg Q2H PRN Administration Pain Rated 7-10 Ondansetron HCl 4 mg 05/01/21 01:29 05/02/21 19:00 Ondansetron Inj 4 Mg/2 Ml Vial IV PUSH 4 mg Q4H PRN Administration Nausea Pantoprazole Sodium 40 mg 05/01/21 09:00 05/02/21 20:28 Pantoprazole Sodium Iv 40 Mg Vial IV PUSH 40 mg Q12HR SCARLET Administration Radiology Results: ITS Impressions Abdomen/Pelvis CT 05/01/21 08:49 IMPRESSION: 1. Active contrast extravasation in the cecum which appears to originate near the ileocecal valve. Correlate for site of the reported recent polypectomy. Dr. Negrete discussed these findings with Dr. Petty Barros at 9:10 AM. Labs Labs: Laboratory Results - last 24 hr 05/02/21 05/02/21 05/03/21 12:53 18:07 00:48 WBC RBC Hgb 9.2 L 9.8 L 9.7 L Hct 27.7 L 29.6 L 28.9 L MCV MCH MCHC RDW Plt Count MPV Immature Gran % (Auto) Neut % (Auto) Lymph % (Auto) Day % (Auto) Eos % (Auto) Baso % (Auto) Lymph # (Auto) Day # (Auto) Eos # (Auto) Baso # (Auto) Abs Immat Gran (auto) Absolute Neuts (auto) Absolute Nucleated RBC Nucleated RBC % Sodium Potassium Chloride Carbon Dioxide Anion Gap BUN Creatinine Estim Creat Clear
[2021-05-03] MEDS: PANTOPRAZOLE SODIUM IV 40 MG VIAL IV PUSH ×2 (08:06→21:03)
[2021-05-03] MEDS: SODIUM CHLORIDE 0.9% IV 1,000 ML 999 ML IV CONT (09:44)
[2021-05-03] MEDS: MAGNESIUM SULF 2 GM/WATER 50ML 2 GM/50 ML BAG IVPB (09:45)
[2021-05-03] MEDS: MIDODRINE HCL 10 MG TABLET PO ×2 (10:41→17:53)
[2021-05-03] MEDS: POTASSIUM CHLORIDE 20 MEQ TABLET.ER PO (10:41)
[2021-05-03] MEDS: FLUDROCORTISONE ACETATE 0.1 MG TABLET PO (10:41)
--- NOTE | 2021-05-03 13:15 | PM.PNGS ---
Progress Note: A&P Assessment and Plan (1) S/P colonoscopy with polypectomy: Onset Date: ~04/2021 Code(s): Z98.890 - Other specified postprocedural states Status: Acute Assessment and Plan: S/p colonoscopy at [facility] on 04/[address] scan in the ER showed extravasation of some IV contrast into the cecum suggestive of acute GI bleed in the cecum. Hgb dropped initially but then began to stabilize. GI performed a colonoscopy yesterday and found an ulcer in her cecum with a visible vessel that appeared to have stigmata of bleeding, this was clipped. Hgb remains stable this morning at 9.9. No further signs of bleeding. She is tolerating a regular diet and clinically improving. Okay from a surgical standpoint to discharge the patient when okay with other services. No follow-up with our service needed. (2) GI bleed: Onset Date: ~05/01/21 Code(s): K92.2 - Gastrointestinal hemorrhage, unspecified Status: Acute Assessment and Plan: Colonoscopy yesterday with clipping of a vessel in an ulcer in the cecum. Hgb stable. See plan above. (3) Abdominal pain: Onset Date: ~04/30/21 Code(s): R10.9 - Unspecified abdominal pain Status: Acute Assessment and Plan: Unclear etiology, although seems to be improving. (4) Acute blood loss anemia: Onset Date: ~04/2021 Code(s): D62 - Acute posthemorrhagic anemia Status: Acute (5) POTS (postural orthostatic tachycardia syndrome): Onset Date: Unknown Code(s): I49.8 - Other specified cardiac arrhythmias Status: Acute (6) RA (rheumatoid arthritis): Code(s): M06.9 - Rheumatoid arthritis, unspecified Status: Acute (7) SLE (systemic lupus erythematosus): Code(s): M32.9 - Systemic lupus erythematosus, unspecified Status: Acute Additional Plan I have discussed the patient's case and plan of care with Dr. Suh. Subjective Subjective Date/Time Seen: 05/03/21 11:15 Patient reports: no new complaints, feels better, pain is less, tolerating a regular diet and afebrile Interval history: Patient seen this morning and feeling much better today. She reports only very mild abdominal discomfort that is now intermittent, much improved. Reports some nausea after eating last night, but no vomiting. No current nausea. Per the nurse, she had orthostatic hypotension and was receiving an IV fluid bolus for this. No other acute issues. Review of Systems Review of Systems: All systems reviewed & are unremarkable except as noted in HPI and below Exam Const: General: no acute distress, awake and tired appearing Orientation/consciousness: patient oriented x3 GI: Inspection: normal to inspection and non-distended GI Palp: Yes Soft to palpation, No Tenderness to palpation present (GI), No Guarding due to palpation present (GI) and No Rebound tenderness present Auscultation: normal bowel sounds Skin: General skin exam: pallor Neuro: General: moves all extremities and no focal motor deficits Extrem: General: no clubbing, cyanosis or edema Psych: Mental Status: mental status grossly normal Insight: Good insight present (Psych) Judgement: Good judgement present (Psych) Objective Data Vital Signs Vital Signs: Vital Signs - 24 hr 05/02/21 23:11 05/03/21 02:06 05/03/21 05:55 Temperature 97.8 F 98.2 F 98.3 F Pulse Rate 94 95 100 Respiratory Rate 16 18 16 Blood Pressure 98/56 L 109/53 L 128/68 Pulse Oximetry 97 100 100 05/03/21 08:15 05/03/21 08:18 05/03/21 08:22 Temperature Pulse Rate 99 105 H 135 H Respiratory Rate 16 16 16 Blood Pressure 110/72 101/69 52/25 L Pulse Oximetry 100 100 100 05/03/21 09:01 05/03/21 10:55 05/03/21 10:58 Temperature Pulse Rate 96 98 Respiratory Rate 16 16 Blood Pressure 106/73 100/63 105/66 Pulse Oximetry 100 99 05/03/21 11:01 Temperature Pulse Rate 101 H Respiratory Rate 16 Blood Pressure 85/54 L Pulse Oximetry 10
[2021-05-03] MEDS: ONDANSETRON INJ 4 MG/2 ML VIAL IV PUSH (14:07)
--- NOTE | 2021-05-03 14:48 | PM.IMPN ---
Progress Note: A&P Assessment and Plan (1) GI bleed: Onset Date: ~05/01/21 Code(s): K92.2 - Gastrointestinal hemorrhage, unspecified Status: Acute Assessment and Plan: Presented with multiple episodes of bright red blood per rectum with associated lower abdominal pain. - CT scan of the abdomen and pelvis showed early case of contrast in the cecum with no free air - Seen in consultation by GI - Had colonoscopy on 05/02 which showed single superficial 8 mm ulcer with a visible vessel in the cecum. The ulcer was probably the stigmata of bleeding. Ulcer was clipped. - No further episodes of bleeding - She is tolerating her diet (2) Abnormal CT of the abdomen: Code(s): R93.5 - Abnormal findings on diagnostic imaging of other abdominal regions, including retroperitoneum Status: Acute Assessment and Plan: CT scan demonstrated active contrast extravasation in the cecum, appears to originate near the ileocecal valve. - She underwent screening colonoscopy on 04/19/2021 at [facility] with several polypectomies including a sessile serrated lesion/adenoma of the cecum. This was thought to be the site in question. Colonoscopy was performed. - general surgery was consulted but no surgical intervention was required (3) Acute blood loss anemia: Onset Date: ~04/2021 Code(s): D62 - Acute posthemorrhagic anemia Status: Acute Assessment and Plan: Secondary to GI bleed as above. Hemoglobin was 10.9 at presentation declined down to 7.5 - hemoglobin and hematocrit remaining stable. Hgb 9.9 this morning - anticipate improvement back to baseline after clipping of cecal ulcer (4) Immunosuppression due to drug therapy: Code(s): D84.821 - Immunodeficiency due to drugs; Z79.899 - Other group home (current) drug therapy Status: Acute Assessment and Plan: She has several autoimmune conditions including rheumatoid arthritis and systemic lupus erythematosus - Immunotherapy currently on hold including rituximab, hydroxychloroquine, belimumab, and azathioprine (5) Orthostatic hypotension: Code(s): I95.1 - Orthostatic hypotension Status: Acute Assessment and Plan: noted to be significantly orthostatic today with 50 point drop in systolic BP from lying to standing. She was symptomatic with this. - She does have a history of POTS and is on midodrine and fludrocortisone which had been held for colonoscopy. Resume - DOMENIC hose - 500 cc fluid bolux x1, then continue IV fluid rehydration 100 ml/hr - Monitor orthostatics - Fall precautions Subjective Date/time seen: 05/03/21 14:48 Interval history: date of service: 05/03/2021 Carlota Walker is a 45-year-old female with history of rheumatoid arthritis, Raynaud's disease, SLE, and POTS who is seen in follow-up for GI bleeding. she is feeling better today. she has not had any further episodes of bleeding per rectum. Still having some mild abdominal discomfort in the periumbilical region. She does have occasional shortness of breath with getting up to walk, and feels dizzy and lightheaded upon standing. She still feels quite weak. She denies nausea or vomiting. She is tolerating her diet. No chest pain or palpitations. Review of Systems Review of Systems: All systems reviewed & are unremarkable except as noted in HPI and below Exam Narrative: Exam Narrative: Ms. Walker is a well-nourished, well-appearing 45-year-old female who is lying supine in bed. She appears comfortable and is in NARD. Neuro: awake, alert and oriented x4, speech clear, no focal neuro deficits noted HEENMT: normocephalic, atraumatic, EOMI, sclerae anicteric, moist oral mucosa Neck: supple, no lymphadenopathy Respiratory: clear to auscultation bilaterally, nonlabored breathing Cardio: regular rate, regular rhythm with S1-S2 Abdomen: nondistended, normoactive bowel sounds, soft, tender to palpation periumbilical region Ext
[2021-05-03] MEDS: SODIUM CHLORIDE 0.9% IV 1,000 ML 100 ML IV CONT (15:12)
--- NOTE | 2021-05-03 23:52 | PCRCNOTE ---
Window of time for administration has passed. See next scheduled administration.
[2021-05-04] MEDS: SODIUM CHLORIDE 0.9% IV 1,000 ML 100 ML IV CONT (05:00)
[2021-05-04 06:00] VITALS: BP 102/57; PULSE 91; RESP 14; TEMP 36.6; O2SAT 100
[2021-05-04 06:35] LABS: Hematocrit 25.1 % (37.0-47.0); Hemoglobin 8.3 g/dL (12.0-15.0)
[2021-05-04 06:46] LABS: Anion Gap 4 mmol/L (8-16); Blood Urea Nitrogen 8 mg/dL (7-17); Calcium 8.3 mg/dL (8.4-10.2); Carbon Dioxide 24 mmol/L (22-30); Chloride 107 mmol/L (98-107); Estimated CRCL calculation 73 ml/min; Estimated Glomerular Filt Rate > 60; Glucose 92 mg/dL (65-110); Magnesium 1.9 mg/dL (1.6-2.3); Potassium 3.9 mmol/L (3.4-5.0); Sodium 135 mmol/L (137-145)
[2021-05-04] MEDS: POTASSIUM CHLORIDE 20 MEQ TABLET.ER PO (08:02)
[2021-05-04] MEDS: FLUDROCORTISONE ACETATE 0.1 MG TABLET PO (08:02)
[2021-05-04] MEDS: MIDODRINE HCL 10 MG TABLET PO (08:02)
[2021-05-04] MEDS: PANTOPRAZOLE SODIUM IV 40 MG VIAL IV PUSH (08:03)
[2021-05-04 09:10] VITALS: BP 110/59; PULSE 80; RESP 20; TEMP 36.5; O2SAT 97
[2021-05-04 09:11] VITALS: BP 109/59; PULSE 98; RESP 20; O2SAT 100
[2021-05-04 09:12] VITALS: BP 103/56; PULSE 102; RESP 20; O2SAT 100
[2021-05-04 12:02] LABS: Hematocrit 25.9 % (37.0-47.0); Hemoglobin 8.4 g/dL (12.0-15.0)
[2021-05-04 12:12] VITALS: BP 121/59; PULSE 81; RESP 20; TEMP 36.6; O2SAT 96
--- NOTE | 2021-05-04 12:52 | PM.DS ---
DS: Admitting Diagnosis Admitting Diagnosis GI bleed DS: Discharge Diagnosis Discharge Diagnosis (1) GI bleed: Onset Date: ~05/01/21 Code(s): K92.2 - Gastrointestinal hemorrhage, unspecified Status: Acute Assessment and Plan: Presented with multiple episodes of bright red blood per rectum with associated lower abdominal pain. - Recently had colonoscopy on 04/19/2021 at [facility] with several polypectomies - CT scan of the abdomen and pelvis showed early case of contrast in the cecum with no free air - She was seen in consultation by GI - Had colonoscopy on 05/02 which showed single superficial 8 mm ulcer with a visible vessel in the cecum which was felt to be due to cautery from recent polypectomy. This was felt to be the source of bleeding and was clipped. - No further episodes of bleeding following colonoscopy - Able to tolerate a regular diet (2) Abnormal CT of the abdomen: Code(s): R93.5 - Abnormal findings on diagnostic imaging of other abdominal regions, including retroperitoneum Status: Acute Assessment and Plan: CT scan demonstrated active contrast extravasation in the cecum, appearing to originate near the ileocecal valve. - She underwent screening colonoscopy on 04/19/2021 at [facility] with several polypectomies including a sessile serrated lesion/adenoma of the cecum. This was thought to be the site in question. Colonoscopy was performed. See above. - General surgery was consulted but no surgical intervention was required (3) Acute blood loss anemia: Onset Date: ~04/2021 Code(s): D62 - Acute posthemorrhagic anemia Status: Acute Assessment and Plan: Secondary to GI bleed as above. - Hemoglobin was 10.9 at presentation and declined down to 7.5 - Hemoglobin and hematocrit stabilized following colonoscopy, improved to 9.9. Did not require blood transfusion. - Slight decline in H&H on day of discharge, felt to be dilutional given IV fluid rehydration - Anticipate improvement back to baseline with clipping of cecal ulcer - Repeat H&H in 1 week for further monitoring (4) Immunosuppression due to drug therapy: Code(s): D84.821 - Immunodeficiency due to drugs; Z79.899 - Other exterminator (current) drug therapy Status: Acute Assessment and Plan: She has several autoimmune conditions including rheumatoid arthritis and systemic lupus erythematosus - Immunotherapy was held including rituximab, hydroxychloroquine, belimumab, and azathioprine during hospitalization. Resume as outpatient (5) Orthostatic hypotension: Code(s): I95.1 - Orthostatic hypotension Status: Acute Assessment and Plan: Noted to be significantly orthostatic with 50 point drop in systolic BP from lying to standing. She was symptomatic with this. - She does have a history of POTS and is on midodrine and fludrocortisone which were held for colonoscopy. - Received IV fluid bolus and maintenance fluids - Midodrine and fludrocortisone were resumed and BP improved. Symptoms resolved - Continue DOMENIC hose - Fall precautions DS: Summary Hospital Course Hospital Course: date of admission: 04/30/2021 date of discharge: 05/04/2021 Carlota Walker is a 45-year-old female with history of rheumatoid arthritis, Raynaud's disease, SLE, and POTS who presented to the emergency department on 04/30/2021 with complaints of rectal bleeding ongoing for 1 day. Upon presentation to the emergency department, she was mildly tachycardic with additional vital signs stable, hemoglobin 10.9, hematocrit 32.8, additional CBC and BMP unremarkable, and CT abdomen/pelvis showed active contrast extravasation in the cecum which appeared to originate of the ileocecal valve. she was admitted to the hospitalist service for further evaluation and management and was seen in consultation by Gastroenterology and General surgery. Please see above for further details. she underwent
== END 2021-05-04 13:30 | disposition home or self-care (01) | DRG 378 ==
LOC: ANHED 05-01 01:28 → ANH3MEDSUR 05-01 01:55 → ANHICU 05-01 11:49 → ANH3MEDSUR 05-03 02:25
PROVIDERS: Emergency Medicine Emergency Medical Services; Internal Medicine; Internal Medicine Gastroenterology; Nurse Practitioner Family; Physician Assistant; Admitting Provider Internal Medicine; Emergency Provider Emergency Medicine; PCP Nurse Practitioner Adult Health; Visit Provider Internal Medicine
PROC: 0DJD8ZZ Inspection of Lower Intestinal Tract, Via Natural or Artificial Opening Endoscopic (ICD-10-PCS; CPT 45378; principal; 2021-05-02 10:30)
DX: K92.2 Gastrointestinal hemorrhage, unspecified (principal); K63.3 Ulcer of intestine; D84.821 Immunodeficiency due to drugs; D62 Acute posthemorrhagic anemia; M06.9 Rheumatoid arthritis, unspecified; M32.9 Systemic lupus erythematosus, unspecified; R10.9 Unspecified abdominal pain; R93.5 Abnormal findings on diagnostic imaging of other abdominal regions, including retroperitoneum; I95.1 Orthostatic hypotension; I73.00 Raynaud's syndrome without gangrene; I49.8 Other specified cardiac arrhythmias; Z79.899 Other long term (current) drug therapy; Z86.010 Personal history of colon polyps; Z87.891 Personal history of nicotine dependence; Z98.890 Other specified postprocedural states
CPT/HCPCS: 36415; 74177; 80048; 80053; 81003; 83735; 84100; 85014; 85018; 85025; 85610; 85730; 86850; 86900; 86901; 94640; 96361; 96365; 96366; 96374; 96375; 96376; 99285; A9270; C9113; G0378; J0131; J2270; J2405; J2704; J3475; J7030; J7120; Q9967

== ENCOUNTER 2021-05-14 17:07 | Outpatient (CLI) | payer OTHER, SELFPAY ==
[2021-05-14 17:38] LABS: Hematocrit 27.9 % (37.0-47.0)
== END 2021-05-14 17:08 | disposition home or self-care (01) ==
PROVIDERS: PCP Nurse Practitioner Adult Health; Referring Provider Nurse Practitioner Adult Health; Visit Provider Physician Assistant
DX: D62 Acute posthemorrhagic anemia (principal)
CPT/HCPCS: 36415; 85014; 85018

== ENCOUNTER 2021-08-15 15:39 | Outpatient (CLI) | payer OTHER, SELFPAY ==
--- NOTE | ~2021-08-15 | XR_ITS ---
XR abdomen/kub 1V DATE: 08/15/2021 16:02 INDICATION: Bilateral flank pain. Bilateral kidney stones. TECHNIQUE: 2 AP views COMPARISON: 05/01/2021 CT abdomen pelvis 10/31/2020 KUB FINDINGS: There is a pinpoint upper pole left renal calcified calculus. Possible extremely subtle sma ll faintly calcified upper pole right renal calculus Noncontrast CT abdomen examination would be more sensitive and accurate Stable bilateral calcified pelvic phlebolith. The psoas shadows are intact. No visceromegaly. There is no evidence of bowel obstruction. Included skeletal structures are unremarkable. The lower lung zones are clear. Normal heart size. For detection of kidney stones. IMPRESSION: Possible very small bilateral kidney calcified stones Reviewed, dictated and finalized at [facility]. Reviewed, dictated and finalized at [facility].
== END 2021-08-15 15:40 | disposition home or self-care (01) ==
LOC: ANHIMG 15:45
PROVIDERS: PCP Nurse Practitioner Adult Health; Visit Provider Nurse Practitioner Adult Health
DX: N20.0 Calculus of kidney (principal)
CPT/HCPCS: 74018

== ENCOUNTER 2021-09-10 16:32 | Outpatient (CLI) | payer OTHER, SELFPAY ==
[2021-09-10 17:02] LABS: Basophils Percent Auto 0.4 % (0.2-1.2); Eosinophils Absolute Auto 0.1 K/mm3 (0-0.3); Eosinophils Percent Auto 0.8 % (0-4.4); Hematocrit 42.1 % (37.0-47.0); Immature Granulocyte Absolute 0.03 K/mm3 (0.00-0.031); Immature Granulocyte Percent A 0.4 % (0-0.5); Lymphocytes Absolute Auto 1.76 K/mm3 (0.9-3.2); Lymphocytes Percent Auto 20.5 % (18.3-44.2); Mean Corpuscular HGB Conc 33.3 g/dl (32-36); Mean Corpuscular Volume 93.3 fl (80-100); Mean Platelet Volume 11.5 fl (7.4-10.4); Monocytes Absolute Auto 0.6 K/mm3 (0.1-0.6); Monocytes Percent Auto 6.5 % (2.6-8.5); Neutrophils Absolute Auto 6.1 K/mm3 (1.3-6.7); Neutrophils Percent Auto 71.4 % (45.5-73.1); Platelet Count Result 274 k/mm3 (150-375); Red Blood Count 4.51 M/mm3 (4.2-5.4); Red Cell Distribution Width 13.4 % (11.5-14.5); White Blood Count 8.6 K/mm3 (4.5-10.0)
[2021-09-10 17:20] LABS: Alanine Aminotransferase 31 U/L (4-35); Albumin Level 5.3 g/dL (3.5-5.1); Alkaline Phosphatase 55 U/L (38-126); Amylase 76 U/L (30-110); Anion Gap 11 mmol/L (8-16); Aspartate Amino Transferase 42 U/L (14-36); Bilirubin,Total 0.9 mg/dL (0.2-1.3); Blood Urea Nitrogen 11 mg/dL (7-17); Calcium 9.6 mg/dL (8.4-10.2); Carbon Dioxide 26 mmol/L (22-30); Chloride 95 mmol/L (98-107); Estimated Glomerular Filt Rate > 60; Glucose 79 mg/dL (65-110); Lipase 39 U/L (23-300); Potassium 3.8 mmol/L (3.4-5.0); Sodium 132 mmol/L (137-145)
== END 2021-09-10 16:33 | disposition home or self-care (01) ==
PROVIDERS: PCP Nurse Practitioner Adult Health; Visit Provider Nurse Practitioner Adult Health
DX: R10.11 Right upper quadrant pain (principal)
CPT/HCPCS: 36415; 80053; 82150; 83690; 85025

== ENCOUNTER 2021-09-19 08:59 | Outpatient (CLI) | payer OTHER, SELFPAY ==
--- NOTE | ~2021-09-19 | US_ITS ---
EXAMINATION: US right upper quadrant DATE: 09/19/2021 09:44 INDICATION: Right upper quadrant abdominal pain. TECHNIQUE: Multiple grayscale and Doppler ultrasound images of the abdomen were obtained. COMPARISON: CT abdomen and pelvis 05/01/2021 FINDINGS: The visualized portions of the head, body, and tail of the pancreas are normal. The liver i s normal without focal lesion. No liver surface nodularity. There is normal flow in main portal vein. The gallbladder is normal in size. No gallstones or gallbladder wall thickening. There was no sonogr aphic Villarreal sign. The common duct is normal and measures 3 mm. IMPRESSION: 1. Normal right upper quadrant ultrasound. Reviewed, dictated and finalized at location [facility]. MAKER
== END 2021-09-19 09:00 | disposition home or self-care (01) ==
PROVIDERS: PCP Nurse Practitioner Adult Health; Visit Provider Nurse Practitioner Adult Health
DX: R10.11 Right upper quadrant pain (principal)
CPT/HCPCS: 76705

== ENCOUNTER 2022-01-14 16:37 | Outpatient (CLI) | payer OTHER, BC, SELFPAY ==
--- NOTE | ~2022-01-14 | XR_ITS ---
EXAM: XR abdomen/kub 1V HISTORY: BILATERAL KIDNEY STONES COMPARISON: X-ray abdomen/KUB 08/15/2021, CT abdomen and pelvis 05/01/2021. FINDINGS: Clear lung bases. Punctate left upper and right mid/lower pole calculi are stable. Additio nal punctate calculi seen in the prior CT are not currently radiographically visible. Multiple pelvic phleboliths. Normal bowel gas pattern. No organomegaly. IMPRESSION: Bilateral nephrolithiasis. Reviewed, dictated and finalized at [facility]. IMPRESSION: Bilateral nephrolithiasis.
== END 2022-01-14 16:38 | disposition home or self-care (01) ==
PROVIDERS: PCP Nurse Practitioner Adult Health; Visit Provider Nurse Practitioner Adult Health
DX: N20.0 Calculus of kidney (principal)
CPT/HCPCS: 74018

== ENCOUNTER 2023-01-27 16:34 | Emergency (ER) | payer OTHER, BC, SELFPAY ==
[2023-01-27] VITALS (7 sets, daily range): BP systolic 100–142; BP diastolic 60–86; PULSE 80–117; RESP 14–32; TEMP 36.4; O2SAT 97–100
--- NOTE | ~2023-01-27 | XR_ITS ---
XR chest 1V portable 01/27/2023 16:54 Indication: Cough and congestion Procedure: AP portable chest Comparison: Comparison to multiple prior studies sequentially, with oldest reviewed study dated 08/14. Findings: Bibasilar airspace disease may represent atelectasis or pneumonia. No pleural effusion. No pneumothorax. No acute osseous abnormality. Impression: 1: Bibasilar airspace disease may represent atelectasis and/or pneumonia. Reviewed, dictated and finalized at location [facility]. Impression: 1: Bibasilar airspace disease may represent atelectasis and/or pneumonia.
--- NOTE | 2023-01-27 16:37 | ECG_ITS ---
Measurements Intervals [place] Rate: 118 P: 61 NE: 151 QRS: 26 QRSD: 114 T: 65 QT: 348 QTc: 488 Interpretive Statements SINUS TACHYCARDIA POSSIBLE LEFT ATRIAL ENLARGEMENT [-0.1mV P WAVE IN V1/V2] INCOMPLETE RIGHT BUNDLE BRANCH BLOCK [90+ ms QRS DURATION, TERMINAL R IN V1/V2, 40+ ms S IN I/aVL/V4/V5/V6] ABNORMAL RHYTHM ECG COMPARED TO ECG 04/06/2021 16:37:32 NO DIFFERENCE Electronically Signed On 01-28-2023 7:02:15 CDT by Niels Denis M.D.
--- NOTE | 2023-01-27 16:51 | ED.GENADULT ---
HPI - General Adult General Chief complaint: Shortness of Breath/Dyspnea <Lefty Kelly PA-C - Last Filed: 01/27/23 18:49> Stated complaint: cough, SOB <Lefty Kelly PA-C - Last Filed: 01/27/23 18:49> Time Seen by Provider: 01/27/23 16:44 <Lefty Kelly PA-C - Last Filed: 01/27/23 18:49> Source: patient <MICHAEL Florez Last Filed: 01/27/23 18:49> Mode of arrival: ambulatory <Lefty Kelly PA-C - Last Filed: 01/27/23 18:49> Limitations: no limitations <MICHAEL Florez Last Filed: 01/27/23 18:49> History of Present Illness HPI narrative: This is a 47-year-old female with PMH of asthma, SLE, RA, POTS presents to the ED with chief complaint of shortness of breath and cough x2 days. She reports associated chest pain whenever she coughs or has deep breathing. She describes it as a tightness in the center of her chest. She reports associated congestion and subjective fevers. Reports taking a albuterol treatment 3 hours prior to arrival with minimal relief. States she is unsure if she feels wheezy, just feels congested. She also notes being around her grandkids who have had recent viral illnesses. Denies any history of heart disease. Abdominal pain, nausea, vomiting, urinary symptoms, diarrhea. <Lefty Kelly PA-C - Last Filed: 01/27/23 18:49> Related Data Home medications: Home Medications Medication Instructions Recorded Confirmed gabapentin 300 mg capsule 300 mg PO TID 01/17/20 05/01/21 (Neurontin) albuterol sulfate 90 mcg/actuation 2 puff inhalation QID PRN Dyspnea 01/22/20 05/01/21 aerosol inhaler (ProAir HFA) amitriptyline 100 mg tablet 100 mg PO HS 01/22/20 05/01/21 azathioprine 50 mg tablet 100 mg PO DAILY 01/22/20 05/01/21 budesonide-formoterol HFA 160 2 puff inhalation Q12H 01/22/20 05/01/21 mcg-4.5 mcg/actuation aerosol inhaler (Symbicort) fludrocortisone 0.1 mg tablet 0.1 mg PO DAILY 01/22/20 05/01/21 hydroxychloroquine 200 mg tablet 400 mg PO DAILY 01/22/20 05/01/21 (Plaquenil) midodrine 5 mg tablet 10 mg PO BID 01/22/20 05/01/21 midodrine 5 mg tablet 15 mg PO QAM 01/22/20 05/01/21 potassium citrate 15 mEq (1,620 30 meq PO TID 01/22/20 05/01/21 mg) tablet,extended release prednisone 2 mg tablet,delayed 2 mg PO DAILY 01/22/20 05/01/21 release spironolactone 100 mg tablet 100 mg PO DAILY 01/22/20 05/01/21 (Aldactone) belimumab 200 mg/mL subcutaneous 200 mg subcut WEEKLY 05/01/21 05/01/21 auto-injector (Benlysta) cyclobenzaprine 10 mg tablet 10 mg PO BID PRN Muscle Spasm 05/01/21 05/01/21 <Lefty Kelly PA-C - Last Filed: 01/27/23 18:49> Allergies/adverse reactions: Allergies Allergy/AdvReac Type Severity Reaction Status Date / Time prochlorperazine Allergy Intermediate Other Verified 01/27/23 16:36 [From Compazine] meperidine AdvReac Nausea and Verified 01/27/23 16:36 Vomiting <MICHAEL Florez Last Filed: 01/27/23 18:49> Review of Systems Review of Systems: CONSTITUTIONAL: Denies fever, chills, or sweats. EYES: Denies visual changes, redness, or discharge. ENT: See HPI CARDIOVASCULAR: See HPI RESPIRATORY: See HPI GASTROINTESTINAL: Denies abdominal pain, nausea, vomiting, or diarrhea. GENITOURINARY: Denies dysuria or hematuria. SKIN: Denies rash or itching. MUSCULOSKELETAL: Denies back pain, joint pain, or myalgia. NEUROLOGIC: Denies headache, numbness, dizziness, or weakness. PSYCHIATRIC: Denies anxiety or depression. <Lefty Kelly PA-C - Last Filed: 01/27/23 18:49> [facility] Past Medical History Medical History: Medical History Hypotension Kidney stone Lupus (systemic lupus erythematosus) POTS (postural orthostatic tachycardia syndrome) RA (rheumatoid arthritis) Raynaud's disease <Lefty Kelly PA-C - Last Filed: 01/27/23 18:49> Surgical History Surgical History: Surgical History (Reviewed 05/01/21 @ 13:05 by Anant
[2023-01-27 16:53] LABS: Hematocrit 37.5 % (37.0-47.0); Hemoglobin 12.8 g/dL (12.0-15.0); Mean Corpuscular HGB Conc 34.1 g/dl (32-36); Mean Corpuscular Hemoglobin 31.2 pg (26-34); Mean Corpuscular Volume 91.5 fl (80-100); Mean Platelet Volume 11.2 fl (7.4-10.4); Platelet Count Result 278 k/mm3 (150-375); Red Cell Distribution Width 12.5 % (11.5-14.5); White Blood Count 20.7 K/mm3 (4.5-10.0)
[2023-01-27 17:04] LABS: Alanine Aminotransferase 25 U/L (6-35); Albumin Level 4.5 g/dL (3.5-5.1); Alkaline Phosphatase 92 U/L (38-126); Anion Gap 11 mmol/L (8-16); Aspartate Amino Transferase 30 U/L (14-36); Bilirubin,Total 0.6 mg/dL (0.2-1.3); Blood Urea Nitrogen 31 mg/dL (7-17); Calcium 9.4 mg/dL (8.4-10.2); Carbon Dioxide 25 mmol/L (22-30); Chloride 94 mmol/L (98-107); Estimated CRCL calculation 63 ml/min; Estimated Glomerular Filt Rate > 60; Glucose 99 mg/dL (65-110); Potassium 4.2 mmol/L (3.4-5.0); Sodium 130 mmol/L (137-145)
[2023-01-27 17:16] LABS: Troponin I < 0.012 ng/mL (0.000-0.034)
[2023-01-27 17:17] LABS: D Dimer 0.39 ug/mL (<0.48)
[2023-01-27] MEDS: DOXYCYCLINE 100 MG/NS 100 ML 100 MG/100 ML BAG IVPB (17:32)
[2023-01-27] MEDS: SODIUM CHLORIDE 0.9% IV 1,000 ML 999 ML IV CONT (17:33)
[2023-01-27] MEDS: LEVALBUTEROL NEB 1.25 MG/3 ML INHALATION (17:44)
[2023-01-27] MEDS: IPRATROPIUM BR 0.02% INH SOLN 0.5 MG/2.5 ML VIAL INHALATION (17:45)
[2023-01-27 17:46] LABS: Influenza A QL RT-PCR Negative (Negative); Influenza B QL RT-PCR Negative (Negative); RSV RNA, RT-PCR Negative (Negative); SARS-CoV-2 RNA PCR Negative
[2023-01-27 17:53] LABS: Band Neutrophils Percent 6 % (0-6); Lymphocytes Absolute Manual 1.44 K/mm3 (1.1-4.5); Monocytes Absolute Manual 1.44 K/mm3 (0.1-0.90); Monocytes Percent Manual 7 % (3-9); Neutrophils Percent Manual 80 % (46-73); Platelet Estimate Decreased (Adequate); Schistocytes None Seen (NORMAL); Total Cells Counted 100
== END 2023-01-27 19:40 | disposition home or self-care (01) ==
PROVIDERS: Emergency Medicine; Emergency Provider Physician Assistant; PCP Nurse Practitioner Adult Health
DX: J18.9 Pneumonia, unspecified organism (principal); Z20.822 Contact with and (suspected) exposure to COVID-19; M32.9 Systemic lupus erythematosus, unspecified; M06.9 Rheumatoid arthritis, unspecified; G90.A Postural orthostatic tachycardia syndrome [POTS]; I73.00 Raynaud's syndrome without gangrene; Z87.442 Personal history of urinary calculi
CPT/HCPCS: 36415; 71045; 80053; 84484; 85025; 85380; 87637; 93005; 94640; 96365; 99284; J7030

== ENCOUNTER 2023-04-01 15:55 | Outpatient (CLI) | payer OTHER, BC, SELFPAY ==
--- NOTE | ~2023-04-01 | XR_ITS ---
Supine and upright views of the abdomen Clinical history: Renal stones COMPARISON: 01/14/2022 Findings: Bowel gas pattern is nonspecific. No evidence for obstruction or free air. Suspected tiny p unctate bilateral renal stones present. Osseous structures are intact. Impression: Suspected punctate bilateral renal stones, similar to prior exam.. Reviewed, dictated and finalized at [facility]. Impression: Suspected punctate bilateral renal stones, similar to prior exam..
== END 2023-04-01 15:56 | disposition home or self-care (01) ==
PROVIDERS: Visit Provider Urology
DX: N20.0 Calculus of kidney (principal)
CPT/HCPCS: 74018

== ENCOUNTER 2023-05-01 16:48 | Inpatient (IN) | payer OTHER, BC, SELFPAY ==
[2023-05-01] VITALS (8 sets, daily range): BP systolic 112–128; BP diastolic 64–74; PULSE 93–104; RESP 17–23; TEMP 36.7–38; O2SAT 100; BMI 21.0
--- NOTE | ~2023-05-01 | CT_ITS ---
EXAMINATION: CT abdomen pelvis w con DATE: 05/01/2023 19:48 INDICATION: RLQ pain TECHNIQUE: Computed tomography (CT) of the abdomen and pelvis was performed with 100 mL Omnipaque-350 intravenous contrast. Automated exposure control and iterative reconstruction technique were employe d. The dose-length product was 207.50 mGy-cm. COMPARISON: 05/01/2021. FINDINGS: Lower thorax: Bilateral breast augmentation. Calcification of the right implant. Possible intracapsul ar rupture on the left. Possible bilateral extracapsular rupture. Liver: Normal. Biliary/Gallbladder: Gallbladder is normal. No bile duct dilation. Pancreas: No mass or duct dilation. Spleen: Normal. Adrenals:No mass. Kidneys: Multiple bilateral nonobstructing calculi. Cortical scarring on the right. GI tract: Mild distal esophageal and gastric wall edema. Moderate cecal wall edema. No small or large bowel dilation. Minor dilation of the appendix to 7 mm, with wall edema and mucosal hyperemia. No pe riappendiceal inflammatory change. Mesentery/Peritoneum: No ascites, mass, or free air. Retroperitoneum: No mass. Pelvis: Surgically absent uterus. Normal urinary bladder. Small bilateral ovarian cysts. Small volume free pelvic fluid, within physiologic range. Soft Tissues: Soft tissues and body wall unremarkable. Bones: No acute osseous finding. IMPRESSION: Moderate cecal edema likely reflecting infectious/inflammatory cecal colitis. Typhlitis could appear similarly, evaluate for neutropenia. Similar but milder changes are present in the appendix. Although acute appendicitis cannot be exclude d completely, these changes are felt to be reactive to the changes in the cecum. Esophagitis/gastritis. Bilateral breast augmentation, with possible bilateral implant ruptures. Reviewed, dictated and finalized at location [facility]. IMPRESSION: Moderate cecal edema likely reflecting infectious/inflammatory cecal colitis. T yphlitis could appear similarly, evaluate for neutropenia. Similar but milder changes are present in the appendix. Although acute appendic itis cannot be excluded completely, these changes are felt to be reactive to th e changes in the cecum. Esophagitis/gastritis. Bilateral breast augmentation, with possible bilateral implant ruptures.
--- NOTE | ~2023-05-01 | CT_ITS ---
EXAMINATION: CT abdomen pelvis wo con DATE: 05/02/2023 13:52 INDICATION: Right lower quadrant abdominal pain; follow-up of cecal inflammation TECHNIQUE: Computed tomography (CT) of the abdomen and pelvis was performed without intravenous contr ast. Automated exposure control and iterative reconstruction technique were employed. Exam dose: 240 .16 mGy-cm total exam DLP. COMPARISON: 05/01/2023 CT abdomen pelvis FINDINGS: Minimal discoid atelectasis in the dependent right lower lobe. The lung bases otherwise are clear. Normal heart size. Trace pericardial fluid. No pleural effusion. There is contrast material in the gallbladder lumen likely due to vicarious excretion of contrast mat erial from the day before. The liver, spleen, pancreas are unremarkable. No bile duct or pancreatic duct dilatation. Normal morphology of the adrenal glands. There are probable approximately 6 or more small calculi of each kidney. No ureteral calculus or hydr oureteronephrosis is evident. The urinary bladder is unremarkable. Increased pericolic inflammatory changes at the ascending colon and cecum, with thickening of the asc ending colon and cecum. There is mild fluid accumulation in the right pericolic gutter and moderate f ree fluid in the dependent pelvis. Nondilated gas and fluid containing small bowel segments are noted with occasional air-fluid levels, likely due to adynamic ileus. No bowel obstruction or intraperitoneal free air is evident. Normal caliber of the abdominal aorta. No intraperitoneal or retroperitoneal or pelvic adenopathy is noted. No suspicious osteolytic or osteoblastic lesions are noted. IMPRESSION: Increased wall thickening of the ascending colon and cecum and increased pericolic inflam matory changes at the ascending colon and cecum, increased free fluid in the abdomen and pelvis since 05/01/2023 Reviewed, dictated and finalized at Location [facility]. Reviewed, dictated and finalized at [facility]. IMPRESSION: Increased wall thickening of the ascending colon and cecum and incr eased pericolic inflammatory changes at the ascending colon and cecum, increase d free fluid in the abdomen and pelvis since 05/01/2023
[2023-05-01 17:25] LABS: Basophils Absolute Auto 0.1 K/mm3 (0.0-0.1); Basophils Percent Auto 0.5 % (0.2-1.2); Eosinophils Absolute Auto 0.2 K/mm3 (0-0.3); Hematocrit 45.6 % (37.0-47.0); Hemoglobin 13.7 g/dL (12.0-15.0); Immature Granulocyte Absolute 0.12 K/mm3 (0.00-0.031); Immature Granulocyte Percent A 0.8 % (0-0.5); Immature Platelet Fraction Pct 6.4 % (0.9-11.2); Lymphocytes Absolute Auto 1.46 K/mm3 (0.9-3.2); Lymphocytes Percent Auto 9.5 % (18.3-44.2); Mean Corpuscular Hemoglobin 31.4 pg (26-34); Mean Corpuscular Volume 104.3 fl (80-100); Mean Platelet Volume 10.9 fl (7.4-10.4); Monocytes Absolute Auto 1.1 K/mm3 (0.1-0.6); Monocytes Percent Auto 7.1 % (2.6-8.5); Neutrophils Absolute Auto 12.5 K/mm3 (1.3-6.7); Neutrophils Percent Auto 81.1 % (45.5-73.1); Platelet Count Result 221 k/mm3 (150-375); Red Blood Count 4.37 M/mm3 (4.2-5.4); Red Cell Distribution Width 13.2 % (11.5-14.5); White Blood Count 15.4 K/mm3 (4.5-10.0)
[2023-05-01 17:33] LABS: Alanine Aminotransferase 26 U/L (6-35); Albumin Level 4.1 g/dL (3.5-5.1); Alkaline Phosphatase 70 U/L (38-126); Anion Gap 10 mmol/L (8-16); Aspartate Amino Transferase 29 U/L (14-36); Bilirubin,Total 0.5 mg/dL (0.2-1.3); Blood Urea Nitrogen 19 mg/dL (7-17); Calcium 8.6 mg/dL (8.4-10.2); Carbon Dioxide 26 mmol/L (22-30); Chloride 98 mmol/L (98-107); Estimated CRCL calculation 72 ml/min; Estimated Glomerular Filt Rate > 60; Glucose 98 mg/dL (65-110); Lipase 43 U/L (23-300); Potassium 3.5 mmol/L (3.4-5.0); Sodium 134 mmol/L (137-145)
[2023-05-01 17:38] LABS: Appearance Urine Clear (Clear); Bacteria Urine None Seen /hpf; Bilirubin Urine Negative (Negative); Blood Urine Negative (Negative); Color Urine Yellow (Yellow); Glucose Urine UA Negative (Negative); Ketones Urine Negative (Negative); Leukocyte Esterase Ur Negative LEU/UL (Negative); Nitrate Urine Negative (Negative); Non Pathogenic Casts 0-2; Protein Urine 1+ mg/dL (Negative); Specific Grav Ur 1.023 (1.001-1.035); Squamous Epithelial Cell Urine Occasional /hpf (Few); WBC Urine 0-5 /hpf; pH Urine 7.5 (5.0-9.0)
[2023-05-01 17:44] LABS: Add Urine Microscopic? YES
--- NOTE | 2023-05-01 19:06 | ED.ABDPAIN ---
HPI - Abdominal Pain General Chief Complaint: Abdominal Pain Stated Complaint: abd pain Time Seen by Provider: 05/01/23 18:37 History of Present Illness HPI narrative: 47-year-old female with a history of POTS, RA, SLE, s/p partial hysterectomy reports for evaluation of right lower quadrant abdominal pain, nausea, vomiting and diarrhea since yesterday. Patient reports decreased p.o. intake since the onset of symptoms. She reports 3 episodes of nonbloody emesis and multiple episodes of soft stools. Last bowel movement was prior to arrival and soft. She denies fever but does report body aches and chills. Reports right lower back pain. She denies vaginal bleeding, vaginal discharge, dysuria or hematuria, chest pain or shortness of breath, cough or congestion. Related Data Home Medications Medication Instructions Recorded Confirmed albuterol sulfate 90 mcg/actuation 2 puff inhalation PRN PRN Dyspnea 01/22/20 05/01/23 aerosol inhaler (ProAir HFA) amitriptyline 100 mg tablet 100 mg PO HS 01/22/20 05/01/23 budesonide-formoterol HFA 160 2 puff inhalation Q12H 01/22/20 05/01/23 mcg-4.5 mcg/actuation aerosol inhaler (Symbicort) fludrocortisone 0.1 mg tablet 0.1 mg PO DAILY 01/22/20 05/01/23 hydroxychloroquine 200 mg tablet 400 mg PO DAILY 01/22/20 05/01/23 (Plaquenil) midodrine 5 mg tablet 10 mg PO BID 01/22/20 05/01/23 midodrine 5 mg tablet 15 mg PO QAM 01/22/20 05/01/23 potassium citrate 15 mEq (1,620 30 meq PO TID 01/22/20 05/01/23 mg) tablet,extended release prednisone 2 mg tablet,delayed 3 mg PO DAILY 01/22/20 05/01/23 release belimumab 200 mg/mL subcutaneous 200 mg subcut WEEKLY 05/01/21 05/01/23 auto-injector (Benlysta) Allergies Allergy/AdvReac Type Severity Reaction Status Date / Time prochlorperazine Allergy Intermediate Other Verified 01/27/23 16:36 [From Compazine] meperidine AdvReac Nausea and Verified 01/27/23 16:36 Vomiting Review of Systems Review of Systems: CONSTITUTIONAL: Denies fever, chills EYES: Denies visual changes, redness, or discharge. ENT: Denies rhinorrhea, congestion, sore throat, or otalgia. CARDIOVASCULAR: Denies chest pain, palpitations, or edema. RESPIRATORY: Denies cough or dyspnea. GASTROINTESTINAL: See HPI GENITOURINARY: Denies dysuria or hematuria. SKIN: Denies rash or itching. MUSCULOSKELETAL: See HPI NEUROLOGIC: Denies headache, numbness, dizziness, or weakness. PSYCHIATRIC: Denies anxiety or depression. [facility] Past Medical History Medical History (Updated 05/01/23 @ 22:24 by Jonna Gould DO) Kidney stone Lupus (systemic lupus erythematosus) POTS (postural orthostatic tachycardia syndrome) RA (rheumatoid arthritis) Raynaud's disease Surgical History Surgical History (Updated 05/01/23 @ 22:23 by Jonna Gould DO) H/O lithotripsy History of breast augmentation History of laparoscopy-assisted vaginal hysterectomy History of tonsillectomy S/P colonoscopy with polypectomy (~04/2021) Complicated by cecal perforation and bright red blood per rectum Family History Family History Mother Multiple sclerosis Father Pulmonary fibrosis Social History Social History (Updated 05/02/23 @ 00:41 by Jonna Gould DO) Social History: She lives at home with her . They have been together since 2009 in since 2015. She occasionally drinks alcohol in moderation. She has a distant history of smoking 1 pack per day for 10 years. She denies any illicit substance use. 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 She lives with her , 3 grand children (ages 8 months, 3 years and 4 years old). Her ex-'s grandmother also lives with them and helps care for the grandchildren. Code status: Full code Surrogate decision maker: Smoking packs per day: 1 Smoking cigarettes per day: 20.0 Years smoked: 10 Smoking pack-years: 10.00 Smoking status: F
[2023-05-01] MEDS: ONDANSETRON INJ 4 MG/2 ML VIAL IV PUSH ×2 (19:31→23:16)
[2023-05-01] MEDS: SODIUM CHLORIDE 0.9% IV 1,000 ML 999 ML IV CONT ×2 (19:33→21:51)
[2023-05-01] MEDS: MORPHINE SULFATE (*CRX) 4 MG/ML INJ 2 MG IV PUSH (19:33)
[2023-05-01] MEDS: HYDROmorphone HCL INJ (*CRX) 1 MG/ML SYR 0.5 MG IV PUSH ×2 (20:49→23:16)
--- NOTE | 2023-05-01 22:11 | PM.IMHP ---
H&P: HPI History of Present Illness Date/Time: 05/01/23 22:11 Chief Complaint: Right-sided abdominal pain Narrative: 47-year-old female with past medical history of SLE, rheumatoid arthritis and POTS who presented to the ER with right lower quadrant abdominal, nausea vomiting since yesterday. The patient reports that yesterday afternoon she began having severe right lower quadrant abdominal pain. The pain continued to worsen throughout the afternoon into the evening. Then a few hours later she began having diarrhea. She had 4 mushy stools yesterday and has had 2 or 3 mushy stools today despite not having been able to eat or drink. She has had associated nausea with occasional vomiting. She has not been able to keep any liquids or food down. She reports feeling chilled but did not measure temperature at home. Her T-max in the ER was 100.4. She denies any recent ill contacts. She drinks only bottled water. She denies any recent travel or camping. She lives at home with her , her ex- grandmother and her . None of them have been sick. And she is on immunosuppressive therapy with Plaquenil and chronic prednisone therapy. She is also on an a injected immune modulator. She reports that she has still been able to produce urine. She denies any dysuria or hematuria. She denies any hematochezia or melena. She denies any hematemesis. She denies any history of frequent abdominal pain or symptoms. She has not had any increase ER bloody stools in the past. She does not have a family history of inflammatory bowel disease. She did have a history of a prior cecal polypectomy ([facility] 04/19/2021) that was complicated by ulcer and bleeding. Review of Systems Review of Systems: 12 systems were reviewed with pertinent positives and negatives per HPI. Except as documented in the HPI, all other systems were reviewed and are negative. [facility] Past Medical History Medical History (Updated 05/01/23 @ 22:24 by Jonna Gould DO) Kidney stone Lupus (systemic lupus erythematosus) POTS (postural orthostatic tachycardia syndrome) RA (rheumatoid arthritis) Raynaud's disease Surgical History Surgical History (Updated 05/01/23 @ 22:23 by Jonna Gould DO) H/O lithotripsy History of breast augmentation History of laparoscopy-assisted vaginal hysterectomy History of tonsillectomy S/P colonoscopy with polypectomy (~04/2021) Complicated by cecal perforation and bright red blood per rectum Family History Family History Mother Multiple sclerosis Father Pulmonary fibrosis Social History Social History (Updated 05/02/23 @ 00:41 by Jonna Gould DO) Social History: She lives at home with her . They have been together since 2009 in since 2014. She occasionally drinks alcohol in moderation. She has a distant history of smoking 1 pack per day for 10 years. She denies any illicit substance use. 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 She lives with her , 3 grand children (ages 8 months, 3 years and 4 years old). Her ex-'s grandmother also lives with them and helps care for the grandchildren. Code status: Full code Surrogate decision maker: Smoking packs per day: 1 Smoking cigarettes per day: 20.0 Years smoked: 10 Smoking pack-years: 10.00 Smoking status: Former smoker Alcohol intake: never Substance use: never Substance use type: does not use Lack of Transportation: No Lack of Food: Never True Current Housing: I Have Housing Concerned About Future Housing: No Difficulty Paying Gas/Electric Bills: No Difficulty Paying for Meds: No Currently Unemployed: No Education: Bachelor's Degree Difficulty w/ Childcare or Family Care: No Living arrangements: with family Occupation/Education: occupation Additional occupation/education comments: [employer] Gender identity (if v
[2023-05-01 22:35] LABS: Lactic Acid Reflex 1.3 mmol/L (0.7-2.0)
[2023-05-01] MEDS: PIPERACILLN/TAZ 3.375GM/NS50ML 3.375 GM/50 ML BAG IVPB (22:44)
[2023-05-01] MEDS: ACETAMINOPHEN 500 MG TABLET 1000 MG PO (22:50)
--- NOTE | 2023-05-01 22:52 | PC.NURSE ---
Verbal order from provider to start antibiotics with only having 1 set of blood cultures. DANIEL العراقي on 3rd med surg aware of needing the second set drawn when she gets to her room
--- NOTE | 2023-05-01 23:26 | ADMGEN ---
This patient, Carlota Walker, was admitted to [facility] Surg Room 304-01. Patient/family oriented to hospital policies and general routines including ID bracelet, bed and alarms, visiting hours, pain management, procedures, bathroom and other care routines, personal items, smoking policy, room service/diet, and visiting hours. Information on how to activate the Rapid Response Team has been discussed. Patient/Family are encouraged to report perceived risks to care and to ask questions if they do not understand what they are told or what they should do.
[2023-05-02] MEDS: SODIUM CHLORIDE 0.9% IV 1,000 ML 125 ML IV CONT ×3 (00:38→23:28)
[2023-05-02 06:00] VITALS: BP 118/72; PULSE 99; RESP 16; TEMP 37; O2SAT 100
[2023-05-02 07:23] LABS: Basophils Absolute Auto 0.1 K/mm3 (0.0-0.1); Basophils Percent Auto 0.5 % (0.2-1.2); Eosinophils Absolute Auto 0.2 K/mm3 (0-0.3); Eosinophils Percent Auto 1.8 % (0-4.4); Hematocrit 36.9 % (37.0-47.0); Hemoglobin 11.7 g/dL (12.0-15.0); Immature Granulocyte Absolute 0.19 K/mm3 (0.00-0.031); Immature Granulocyte Percent A 1.4 % (0-0.5); Lymphocytes Absolute Auto 1.23 K/mm3 (0.9-3.2); Lymphocytes Percent Auto 9.4 % (18.3-44.2); Mean Corpuscular HGB Conc 31.7 g/dl (32-36); Mean Corpuscular Hemoglobin 31.4 pg (26-34); Mean Corpuscular Volume 98.9 fl (80-100); Mean Platelet Volume 11.1 fl (7.4-10.4); Monocytes Absolute Auto 1.1 K/mm3 (0.1-0.6); Monocytes Percent Auto 8.3 % (2.6-8.5); Neutrophils Absolute Auto 10.3 K/mm3 (1.3-6.7); Neutrophils Percent Auto 78.6 % (45.5-73.1); Platelet Count Result 201 k/mm3 (150-375); Red Blood Count 3.73 M/mm3 (4.2-5.4); Red Cell Distribution Width 13.3 % (11.5-14.5); White Blood Count 13.1 K/mm3 (4.5-10.0)
[2023-05-02] MEDS: ENOXAPARIN 40 MG/0.4 ML SYRINGE SUB-Q (08:23)
[2023-05-02] MEDS: predniSONE 1 MG TABLET 3 MG PO (08:25)
[2023-05-02] MEDS: MIDODRINE HCL 10 MG TABLET PO ×3 (08:25→16:32)
[2023-05-02] MEDS: MIDODRINE HCL 2.5 MG TABLET 5 MG PO (08:25)
[2023-05-02] MEDS: FLUDROCORTISONE ACETATE 0.1 MG TABLET PO (08:26)
[2023-05-02] MEDS: PANTOPRAZOLE SODIUM IV 40 MG VIAL IV PUSH (08:26)
[2023-05-02] MEDS: HYDROmorphone HCL INJ (*CRX) 1 MG/ML SYR 0.5 MG IV PUSH ×2 (08:33→12:26)
[2023-05-02] MEDS: ONDANSETRON INJ 4 MG/2 ML VIAL IV PUSH ×2 (10:05→20:26)
[2023-05-02] MEDS: PIPERACILLN/TAZ 3.375GM/NS50ML 3.375 GM/50 ML BAG IVPB ×2 (11:42→17:26)
[2023-05-02 11:59] LABS: Anion Gap 10 mmol/L (8-16); Blood Urea Nitrogen 19 mg/dL (7-17); Calcium 6.9 mg/dL (8.4-10.2); Carbon Dioxide 18 mmol/L (22-30); Chloride 106 mmol/L (98-107); Estimated CRCL calculation 82 ml/min; Estimated Glomerular Filt Rate > 60; Glucose 61 mg/dL (65-110); Potassium 3.6 mmol/L (3.4-5.0); Sodium 134 mmol/L (137-145)
--- NOTE | 2023-05-02 13:00 | PM.CNGS ---
Assessment and Plan Assessment and plan (1) Colitis: Code(s): K52.9 - Noninfective gastroenteritis and colitis, unspecified Status: Acute Assessment and Plan: Seems to be most likely cause of her right lower quadrant pain. Etiology of the cecal inflammatory changes or colitis is unclear. Recommend continue IV Zosyn. Doubt this is appendicitis. Will repeat CT scan of the abdomen pelvis with IV contrast today. Patient does show some signs of improving in that her diarrhea has stopped, her vomiting has stopped. Her white blood cell count is slightly lower than yesterday. Will ask Gastroenterology to see for further recommendations. At this point, do not anticipate surgery being needed but will follow along with you. (2) Immunosuppression due to drug therapy: Code(s): D84.821 - Immunodeficiency due to drugs; Z79.899 - Other jail (current) drug therapy Status: Chronic Assessment and Plan: Prednisone, Plaquenil, monoclonal antibody (3) RA (rheumatoid arthritis): Code(s): M06.9 - Rheumatoid arthritis, unspecified Status: Chronic (4) SLE (systemic lupus erythematosus): Code(s): M32.9 - Systemic lupus erythematosus, unspecified Status: Chronic History of Present Illness Consult details Consult date: 05/02/23 Requesting physician: Karlee Aguilar PA-C Narrative: Patient is a 47-year-old woman with significant history of autoimmune disease. She carries a diagnosis of Raynaud syndrome, lupus, rheumatoid arthritis. She chronically takes Plaquenil, steroids, and monoclonal antibodies for her autoimmune disorders. Around 4:00 a.m. in the afternoon on 04/30/2023, she began experiencing right lower quadrant pain. She does not recall eating anything or any particular activities that may have triggered this. No one in the family became ill and she does not know of any other people that are ill. After the pain started she developed nausea. The next day, 05/01/2023, she experienced the right lower quadrant pain but also some had numerous episodes of vomiting and diarrhea. She eventually came to the emergency room. She was noted to have tenderness in the right lower [place] [id number] [place] scan was performed and showed edema in the distal esophagus, stomach, and cecum. She has not had any epigastric pain or pain with swallowing. The appendix appeared to be slightly abnormal, edematous but was less so than the cecum and was felt to be reactive to the neighboring cecum a rather than a primary process. Patient was admitted and started on analgesics as well as Zosyn IV antibiotics. She reports that she has been taking all of her lupus and rheumatoid meds prior to the onset of her present illness. She is seen today in consultation. She reports that the right lower quadrant pain is about the same as when she came in. She has however stopped having diarrhea or vomiting. She is not really hungry but is at least entertaining the idea of oral intake. She has never had anything like this happen before. Her only previous abdominal surgery was a laparoscopic assisted vaginal hysterectomy. Review of Systems Review of Systems: All systems reviewed & are unremarkable except as noted in HPI and below (HPI and those items noted below) Constitutional: Constitutional: Denies chills and Denies fever(s) Cardiovascular: Cardiovascular: Denies chest pain, Denies diaphoresis, Denies dyspnea and Denies paroxysmal nocturnal dyspnea Respiratory: Respiratory: Denies chest congestion, Denies cough and Denies dyspnea Integumentary/Breasts: Skin/Breast: Denies lesions and Denies rash [facility] Past Medical History Medical History (Updated 05/02/23 @ 13:14 by Paul Lee MD) Kidney stone Lupus (systemic lupus erythematosus) POTS (postural orthostatic tachycardia syndrome) RA (rheumatoid arthritis) Raynaud's disease Surgical History Surgical History (Updated 05/01/23 @ 2
--- NOTE | 2023-05-02 13:00 | PCCCNOTE ---
On 05/02/23, the student, [Lili Andrea ], provided care and completed [facility] documentation on this patient. I have reviewed the student's documentation and agree with the findings.
[2023-05-02 14:00] VITALS: BP 108/56; PULSE 93; RESP 16; TEMP 37.2; O2SAT 100
--- NOTE | 2023-05-02 14:53 | PM.IMPN ---
Progress Note: A&P Assessment and Plan (1) Sepsis: Qualifiers: Sepsis acute organ dysfunction status: without acute organ dysfunction Sepsis type: sepsis due to unspecified organism Qualified Code(s): A41.9 - Sepsis, unspecified organism Code(s): A41.9 - Sepsis, unspecified organism Status: Acute Assessment and Plan: Patient meets sepsis criteria with tachycardia, fever and leukocytosis in the setting of acute cecal colitis. Stool studies have been ordered but not yet obtained. Patient has been placed on empiric antibiotic therapy with Zosyn. Maintenance IV fluids. (2) Colitis: Code(s): K52.9 - Noninfective gastroenteritis and colitis, unspecified Status: Acute Assessment and Plan: CT did to suggest possible appendicitis however information is more likely due to acute cecal colitis. General surgery was consulted from the ER. General surgeon does not believe patient will need surgery at this time and recommends she be evaluated by GI. Zofran has been provided as needed for nausea. Will continue Dilaudid 0.5 mg Q 3 hours p.r.n. pain. Will add Toradol 15 mg q.6 hours p.r.n. pain 4-6. Will add GI prophylaxis with Protonix 40 mg subQ daily Stool culture/studies ordered 05/02 Patient has not had any more episodes of nausea, vomiting or diarrhea (3) Immunosuppression due to drug therapy: Code(s): D84.821 - Immunodeficiency due to drugs; Z79.899 - Other oysterman (current) drug therapy Status: Chronic Assessment and Plan: patient diagnosed with lupus, RA, Raynaud's disease and Bull. She is on immunosuppressant drugs. (4) Macrocytosis without anemia: Code(s): D75.89 - Other specified diseases of blood and blood-forming organs Status: Acute Assessment and Plan: Patient does have macrocytosis without evidence of anemia. Will check B12 and folic acid levels in a.m.. Subjective Date/time seen: 05/02/23 14:53 Interval history: Patient continuing to have right lower quadrant and suprapubic abdominal pain. She has not had any nausea vomiting or diarrhea since before coming to the hospital. She states she was on recent antibiotic therapy for pneumonia. She did have a fever but is not had 1 since arriving to the Floor. Being evaluated by both General surgery and GI. Exam Narrative: GENERAL: Comfortable, no acute distress HENMT: moist mucous membranes EYES: EOM intact b/l NECK: no lymphadenopathy RESPIRATORY: clear to auscultation CARDIO: RRR GI: soft, Suprapubic and right lower quadrant tenderness, bowel sounds present SKIN: no rashes EXTREMITIES: no edema, redness or tenderness Objective Data Vital Signs Vital Signs: Vital Signs - 24 hr 05/01/23 16:55 05/01/23 18:44 05/01/23 18:40 Temperature 98.0 F 99.3 F Pulse Rate 102 H 93 Respiratory Rate 17 22 H Blood Pressure 112/65 128/64 Pulse Oximetry 100 100 100 Oxygen Delivery Room Air Room Air 05/01/23 18:45 05/01/23 18:46 05/01/23 18:47 Temperature Pulse Rate 98 Respiratory Rate 23 H Blood Pressure 128/64 Pulse Oximetry 100 100 100 Oxygen Delivery 05/01/23 20:06 05/01/23 21:49 05/02/23 06:00 Temperature 100.4 F H 98.6 F Pulse Rate 95 104 H 99 Respiratory Rate 18 16 Blood Pressure 115/74 117/68 118/72 Pulse Oximetry 100 100 Oxygen Delivery 05/02/23 14:00 Temperature 98.9 F Pulse Rate 93 Respiratory Rate 16 Blood Pressure 108/56 L Pulse Oximetry 100 Oxygen Delivery Intake/Output Intake/Output: Intake & Output 04/29/23 04/30/23 05/01/23 05/02/23 23:59 23:59 23:59 23:59 Intake Total 1000 1250 Balance 1000 1250 Meds/Results Medications: Active Medications Generic Name Dose Route Start Last Admin Trade Name Freq PRN Reason Stop Dose Admin Albuterol 2 puff 05/02/23 00:36 Albuterol Sulfate (*Sp) Aerosol 1 Puff INHALATION Q4H PRN Dyspnea Amitriptyline HCl 100 mg
[2023-05-02] MEDS: IBUPROFEN IV 800 MG/200 ML 800 MG/200 ML BAG 400 MG IVPB ×3 (15:29→23:26)
--- NOTE | 2023-05-02 16:16 | WPDGICN ---
Assessment and Plan Assessment and plan (1) Right lower quadrant abdominal pain: Code(s): R10.31 - Right lower quadrant pain Status: Acute Assessment and Plan: The pain came on acutely on Friday evening. It is suggestive of appendicitis. She does have thickening of the proximal ascending colon and cecum suggesting localized colitis or typhlitis. (2) Abnormal CT of the abdomen: Code(s): R93.5 - Abnormal findings on diagnostic imaging of other abdominal regions, including retroperitoneum Status: Acute Assessment and Plan: Although the changes are in the same area as she had with her perforation 2 years ago, there is no free air at this time. There is however some localized fluid collection in the right pericolic gutter and in the dependent pelvis. (3) Sepsis: Qualifiers: Sepsis type: sepsis due to unspecified organism Sepsis acute organ dysfunction status: without acute organ dysfunction Qualified Code(s): A41.9 - Sepsis, unspecified organism Code(s): A41.9 - Sepsis, unspecified organism Status: Acute Assessment and Plan: She has been started on antibiotics, her white blood count is beginning to come down. (4) SLE (systemic lupus erythematosus): Code(s): M32.9 - Systemic lupus erythematosus, unspecified Status: Chronic Assessment and Plan: she is treated by Dr. OWEN, adhesion tester for her connective tissue disease. She is on chronic immunosuppressive therapy with Plaquenil and steroids and also an injectable biologic. She has not however had any change in medications recently. (5) Diarrhea: Code(s): R19.7 - Diarrhea, unspecified Status: Acute Assessment and Plan: not long after the pain began she began having diarrhea and soft mushy stools. She has not had a bowel movement since she got here. Stool cultures had not yet been ordered to my knowledge but I will go ahead and place orders for testing for enteric pathogens including C difficile. At this point it is difficult to know with she will need any endoscopic investigation but certainly not at this particular time. GI Consult Note Consult date/time: 05/02/23 16:16 HPI: Carlota Walker is a 47 year old female Who is admitted with right lower quadrant pain nausea and vomiting. On Friday evening after work she began to notice pain in the right lower quadrant accompanied by nausea. The following day the pain was worse and she was vomiting as well. Also on she began having very loose stools. She has not been able to eat or drink anything because of the nausea and vomiting. She felt warm but did not record her temperature. She had not been traveling. She had antibiotics about 3 weeks ago for a respiratory infection. CT scan of the abdomen showed increased wall thickening of the ascending colon cecum. This was done today and compared to her initial CT scan the night before last there was more edema. Was also some fluid collection in the right chery colic gutter. This is interesting because 2 years ago she had had a micro perforation of the cecum following a polypectomy done in [place] and at that time she was hospitalized here she also had been passing blood. She was treated with antibiotics and did not require surgery. She had had a drop in hemoglobin to 7.5 g at that time. She has not had any issues with her bowels or with bleeding or with pain since then until the night before last. Her white blood count is elevated and and this addition at 15,400. today it is lower at 13,000. Review of Systems Review of Systems: All systems reviewed & are unremarkable except as noted in HPI and below PMFSH Past Medical History Medical History Kidney stone Lupus (systemic lupus erythematosus) POTS (postural orthostatic tachycardia syndrome) RA (rheumatoid arthritis) Raynaud's disease Surgical Histo
[2023-05-02] MEDS: HYDROmorphone HCL INJ (*CRX) 1 MG/ML SYR IV PUSH ×2 (16:37→20:22)
[2023-05-02] MEDS: FLUTICASONE/SALMETEROL 115-21 MCG INHALER 1 PUFF 2 PUFF INHALATION (19:46)
[2023-05-02 20:15] VITALS: BP 105/61; PULSE 87; RESP 20; TEMP 36.3; O2SAT 100
[2023-05-02] MEDS: AMITRIPTYLINE HCL 25 MG TABLET 100 MG PO (21:12)
[2023-05-03] MEDS: PIPERACILLN/TAZ 3.375GM/NS50ML 3.375 GM/50 ML BAG IVPB ×4 (00:13→18:15)
[2023-05-03] MEDS: HYDROmorphone HCL INJ (*CRX) 1 MG/ML SYR IV PUSH ×4 (05:16→21:23)
[2023-05-03 06:00] VITALS: BP 107/59; PULSE 93; RESP 16; TEMP 37.1; O2SAT 99
[2023-05-03 06:52] LABS: Basophils Percent Auto 0.3 % (0.2-1.2); Eosinophils Absolute Auto 0.2 K/mm3 (0-0.3); Eosinophils Percent Auto 2.3 % (0-4.4); Hematocrit 36.6 % (37.0-47.0); Hemoglobin 11.8 g/dL (12.0-15.0); Immature Granulocyte Absolute 0.09 K/mm3 (0.00-0.031); Immature Granulocyte Percent A 0.9 % (0-0.5); Lymphocytes Absolute Auto 0.62 K/mm3 (0.9-3.2); Lymphocytes Percent Auto 6.1 % (18.3-44.2); Mean Corpuscular HGB Conc 32.2 g/dl (32-36); Mean Corpuscular Hemoglobin 30.8 pg (26-34); Mean Corpuscular Volume 95.6 fl (80-100); Monocytes Absolute Auto 0.9 K/mm3 (0.1-0.6); Monocytes Percent Auto 8.9 % (2.6-8.5); Neutrophils Absolute Auto 8.3 K/mm3 (1.3-6.7); Neutrophils Percent Auto 81.5 % (45.5-73.1); Platelet Count Result 195 k/mm3 (150-375); Red Blood Count 3.83 M/mm3 (4.2-5.4); Red Cell Distribution Width 12.9 % (11.5-14.5); White Blood Count 10.2 K/mm3 (4.5-10.0)
[2023-05-03 07:05] LABS: Alanine Aminotransferase 19 U/L (6-35); Albumin Level 2.8 g/dL (3.5-5.1); Alkaline Phosphatase 55 U/L (38-126); Anion Gap 5 mmol/L (8-16); Aspartate Amino Transferase 22 U/L (14-36); Bilirubin,Total 0.2 mg/dL (0.2-1.3); Blood Urea Nitrogen 8 mg/dL (7-17); Calcium 6.8 mg/dL (8.4-10.2); Carbon Dioxide 23 mmol/L (22-30); Chloride 107 mmol/L (98-107); Estimated CRCL calculation 82 ml/min; Estimated Glomerular Filt Rate > 60; Glucose 95 mg/dL (65-110); Potassium 3.3 mmol/L (3.4-5.0); Sodium 135 mmol/L (137-145); Transferrin 130 mg/dL (206-381)
[2023-05-03 07:11] LABS: CRP 16.8 mg/dL (<1.0)
[2023-05-03 07:32] LABS: Iron 15 ug/dL (37-170)
[2023-05-03] MEDS: IBUPROFEN IV 800 MG/200 ML 800 MG/200 ML BAG 400 MG IVPB ×3 (07:41→18:51)
[2023-05-03] MEDS: FLUTICASONE/SALMETEROL 115-21 MCG INHALER 1 PUFF 2 PUFF INHALATION ×2 (07:43→20:22)
[2023-05-03 07:44] LABS: Percent Iron Saturation 6 % (20-50)
[2023-05-03 07:45] VITALS: O2SAT 99
[2023-05-03] MEDS: ONDANSETRON INJ 4 MG/2 ML VIAL IV PUSH ×2 (07:47→12:36)
[2023-05-03] MEDS: HYDROmorphone HCL INJ (*CRX) 1 MG/ML SYR 0.5 MG IV PUSH ×2 (07:52→10:45)
[2023-05-03 08:02] LABS: Folic Acid 13.4 ng/mL (2.76->20); Thyroid Stimulating Hormone Reflex 0.231 uIU/mL (0.465-4.68)
--- NOTE | 2023-05-03 08:49 | WPDGIPROGNO ---
Progress Note: A&P Assessment and Plan (1) Right lower quadrant abdominal pain: Code(s): R10.31 - Right lower quadrant pain Status: Acute Assessment and Plan: The pain came on acutely on Friday evening. It is suggestive of appendicitis. She does have thickening of the proximal ascending colon and cecum suggesting localized colitis or typhlitis. + no significant change in the pain nor in its location. (2) Abnormal CT of the abdomen: Code(s): R93.5 - Abnormal findings on diagnostic imaging of other abdominal regions, including retroperitoneum Status: Acute Assessment and Plan: Although the changes are in the same area as she had with her perforation 2 years ago, there is no free air at this time. There is however some localized fluid collection in the right pericolic gutter and in the dependent pelvis. (3) Sepsis: Qualifiers: Sepsis type: sepsis due to unspecified organism Sepsis acute organ dysfunction status: without acute organ dysfunction Qualified Code(s): A41.9 - Sepsis, unspecified organism Code(s): A41.9 - Sepsis, unspecified organism Status: Acute Assessment and Plan: She has been started on antibiotics, her white blood count is beginning to come down. + White blood count down to 10,200 today (4) SLE (systemic lupus erythematosus): Code(s): M32.9 - Systemic lupus erythematosus, unspecified Status: Chronic Assessment and Plan: she is treated by Dr. OWEN, petroleum refining firer for her connective tissue disease. She is on chronic immunosuppressive therapy with Plaquenil and steroids and also an injectable biologic. She has not however had any change in medications recently. (5) Diarrhea: Code(s): R19.7 - Diarrhea, unspecified Status: Acute Assessment and Plan: not long after the pain began she began having diarrhea and soft mushy stools. She has not had a bowel movement since she got here. Stool cultures had not yet been ordered to my knowledge but I will go ahead and place orders for testing for enteric pathogens including C difficile. At this point it is difficult to know with she will need any endoscopic investigation but certainly not at this particular time. + Will obtain serology for inflammatory bowel disease. Plan no change in the location or type of pain which is still centralized the right lower quadrant. Surgery has seen her and does not feel that this is appendic itis. I told her that the plan would be to continue antibiotics and pain management. Eventually she will need a colonoscopy to investigate this area. There is a slight possibility of inflammatory bowel disease although it is an atypical picture on CT scan. Subjective Date/time seen: Carlota Walker is a 47 year old female ? Who is admitted with right lower quadrant pain nausea and vomiting.? On Friday evening after work she began to notice pain in the right lower quadrant accompanied by nausea.? The following day the pain was worse and she was vomiting as well.? Also on she began having very loose stools.? She has not been able to eat or drink anything because of the nausea and vomiting.? She felt warm but did not record her temperature.? She had not been traveling.? She had antibiotics about 3 weeks ago for a respiratory infection. CT scan of the abdomen showed increased wall thickening of the ascending colon cecum.? This was done today and compared to her initial CT scan the night before last there was more edema.? Was also some fluid collection in the right chery colic gutter.? This is interesting because 2 years ago she had had a micro perforation of the cecum following a polypectomy done in [place] and at that time she was hospitalized here she also had been passing blood.? She was treated with antibiotics and did not require surgery.? She had had a drop in hemoglobin to 7.5 g at that time.? She has not had any issues with her bowels
[2023-05-03 09:08] LABS: Free T4 Free Thyroxine Reflex 1.17 ng/dL (0.78-2.19)
[2023-05-03] MEDS: MIDODRINE HCL 10 MG TABLET PO ×3 (09:29→18:15)
[2023-05-03] MEDS: predniSONE 1 MG TABLET 3 MG PO (09:29)
[2023-05-03] MEDS: PANTOPRAZOLE SODIUM IV 40 MG VIAL IV PUSH (09:29)
[2023-05-03] MEDS: FLUDROCORTISONE ACETATE 0.1 MG TABLET PO (09:30)
[2023-05-03] MEDS: MIDODRINE HCL 2.5 MG TABLET 5 MG PO (09:30)
[2023-05-03] MEDS: FERROUS GLUCONATE 324 MG TABLET PO (09:30)
[2023-05-03] MEDS: POTASSIUM CHLORIDE 20 MEQ PACKET (FOR LIQUID) PO (09:31)
[2023-05-03] MEDS: ENOXAPARIN 40 MG/0.4 ML SYRINGE SUB-Q (09:31)
[2023-05-03 10:20] LABS: Total Triiodothyronine (T3) 0.77 NG/ML (0.97-1.69)
--- NOTE | 2023-05-03 13:05 | PM.PNGS ---
Progress Note: A&P Assessment and Plan (1) Colitis: Code(s): K52.9 - Noninfective gastroenteritis and colitis, unspecified Status: Acute Assessment and Plan: Clinically patient has remained pretty stable. Repeat CT scan yesterday showed increased thickening of the cecum and right colon consistent with ongoing right-sided colitis. No free air or abscess is noted. Is low bit more free fluid in the pelvis. Clinically her abdominal exam is stable without evidence of progression to diffuse peritoneal signs. We will go ahead continue operative managed with IV antibiotics and clear liquids for today. We will continue to follow. No acute surgical abdomen at this time. Subjective Subjective Date/Time Seen: 05/03/23 13:05 Interval history: Patient sitting up in bed drinking some clear liquids. No nausea and states that her right lower quadrant pain is about the same as yesterday. She is continuing at some doses of medications. She has been seen by GI and recommendations are to continue IV antibiotics and relative bowel rest. Decision for endoscopic evaluation is pending. White blood cell count has decreased down to 10,200. No fever. She is passing some liquid stools that are nonbloody. Review of Systems Review of Systems: The remainder of the review of systems to include constitutional, HEENT, cardiovascular, respiratory, GI, , integumentary, musculoskeletal, endocrine, immunologic, hematologic, psychiatric, and neurologic are all negative except for which is mentioned above in the HPI. Exam Const: General: comfortable and no acute distress Resp: Effort & Inspection: normal respiratory effort Auscultation: clear to auscultation bilaterally Cardio: Rate: regular rate Rhythm: regular rhythm Other: Abdomen is soft and nondistended. [id number] tenderness to deep palpation right lower quadrant of the abdomen. There is some voluntary guarding but no generalized peritoneal signs. No masses are appreciated. Neuro: Speech: normal speech Sensory Exam: normal sensation Extrem: General: normal to inspection Psych: Mental Status: mental status grossly normal Affect: normal affect Objective Data Vital Signs Vital Signs: Vital Signs - 24 hr 05/02/23 14:00 05/02/23 20:15 05/03/23 06:00 Temperature 37.2 C 36.3 C L 37.1 C Pulse Rate 93 87 93 Respiratory Rate 16 20 16 Blood Pressure 108/56 L 105/61 107/59 L Pulse Oximetry 100 100 99 Oxygen Delivery 05/03/23 07:45 05/03/23 07:40 Temperature Pulse Rate Respiratory Rate Blood Pressure Pulse Oximetry 99 Oxygen Delivery Room Air Room Air Intake/Output Intake/Output: Intake & Output 04/30/23 05/01/23 05/02/23 05/03/23 23:59 23:59 23:59 23:59 Intake Total 1000 3700 1350 Balance 1000 3700 1350 Meds/Results Medications: Active Medications Generic Name Dose Route Start Last Admin Trade Name Freq PRN Reason Stop Dose Admin Albuterol 2 puff 05/02/23 00:36 Albuterol Sulfate (*Sp) Aerosol 1 Puff INHALATION Q4H PRN Dyspnea Amitriptyline HCl 100 mg 05/02/23 21:00 05/02/23 21:12 Amitriptyline Hcl 25 Mg Tablet PO 100 mg HS SCARLET Administration Enoxaparin Sodium 40 mg 05/02/23 09:00 05/03/23 09:31 Enoxaparin 40 Mg/0.4 Ml Syringe SUB-Q 40 mg DAILY SCARLET Administration Ferrous Gluconate 324 mg 05/03/23 08:00 05/03/23 09:30 Ferrous Gluconate 324 Mg Tablet PO 324 mg DAILY@0800 SCARLET Administration Fludrocortisone Acetate 0.1 mg 05/02/23 09:00 05/03/23 09:30 Fludrocortisone Acetate 0.1 Mg Tablet PO 0.1 mg DAILY SCARLET Administration Hydromorphone HCl 0.5 mg 05/02/23 12:57 05/03/23 10:45 Hydromorphone Hcl Inj (*Crx) 1 Mg/Ml Syr IV PUSH 0.5 mg Q2H PRN Administration Pain Rated 4-6 Hydromorphone HCl 1 mg 05/02/23 12:55 05/03/23 12:36 Hydromorphone Hcl Inj (*Crx) 1 Mg/Ml Syr IV PUSH 1 mg Q2H PRN Administration Pain Rated 7-10 Pip
--- NOTE | 2023-05-03 13:26 | PM.IMPN ---
Progress Note: A&P Assessment and Plan (1) Sepsis: Qualifiers: Sepsis type: sepsis due to unspecified organism Sepsis acute organ dysfunction status: without acute organ dysfunction Qualified Code(s): A41.9 - Sepsis, unspecified organism Code(s): A41.9 - Sepsis, unspecified organism Status: Acute Assessment and Plan: Patient meets sepsis criteria with tachycardia, fever and leukocytosis in the setting of acute cecal colitis. Stool studies have been ordered but not yet obtained. Patient has been placed on empiric antibiotic therapy with Zosyn. Maintenance IV fluids. (2) Colitis: Code(s): K52.9 - Noninfective gastroenteritis and colitis, unspecified Status: Acute Assessment and Plan: CT did to suggest possible appendicitis however information is more likely due to acute cecal colitis. General surgery was consulted from the ER. General surgeon does not believe patient will need surgery at this time and recommends she be evaluated by GI. GI does not believe that this pain sub picture of an inflammatory bowel but she will need colonoscopy at some point. Zofran has been provided as needed for nausea. Will continue Dilaudid 0.5 mg Q 3 hours p.r.n. pain. Will add Toradol 15 mg q.6 hours p.r.n. pain 4-6. 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 She is on immunosuppressant drugs. (4) Macrocytosis without anemia: Code(s): D75.89 - Other specified diseases of blood and blood-forming organs Status: Acute Assessment and Plan: Patient does have macrocytosis without evidence of anemia. Will check B12 and folic acid levels in a.m.. Subjective Date/time seen: 05/03/23 13:26 Interval history: patient states she is still having some abdominal pain but denies any vomiting or diarrhea. She has intermittent nausea that is being treated with Zofran. She denies any fevers, body aches, chills, chest pain and shortness of breath. Attempting to slowly advance patient's diet. Review of Systems Review of Systems: All systems reviewed & are unremarkable except as noted in HPI and below Exam Narrative: GENERAL: Comfortable, no acute distress HENMT: moist mucous membranes EYES: EOM intact b/l NECK: no lymphadenopathy RESPIRATORY: clear to auscultation CARDIO: RRR GI: soft, Suprapubic and right lower quadrant tenderness, bowel sounds present SKIN: no rashes EXTREMITIES: no edema, redness or tenderness Objective Data Vital Signs Vital Signs: Vital Signs - 24 hr 05/02/23 14:00 05/02/23 20:15 05/03/23 06:00 Temperature 98.9 F 97.3 F L 98.7 F Pulse Rate 93 87 93 Respiratory Rate 16 20 16 Blood Pressure 108/56 L 105/61 107/59 L Pulse Oximetry 100 100 99 Oxygen Delivery 05/03/23 07:45 05/03/23 07:40 Temperature Pulse Rate Respiratory Rate Blood Pressure Pulse Oximetry 99 Oxygen Delivery Room Air Room Air Intake/Output Intake/Output: Intake & Output 04/30/23 05/01/23 05/02/23 05/03/23 23:59 23:59 23:59 23:59 Intake Total 1000 3700 2360 Balance 1000 3700 2360 Meds/Results Medications: Active Medications Generic Name Dose Route Start Last Admin Trade Name Freq PRN Reason Stop Dose Admin Albuterol 2 puff 05/02/23 00:36 Albuterol Sulfate (*Sp) Aerosol 1 Puff INHALATION Q4H PRN Dyspnea Amitriptyline HCl 100 mg 05/02/23 21:00 05/02/23 21:12 Amitriptyline Hcl 25 Mg Tablet PO 100 mg HS SCARLET Administration Enoxaparin Sodium 40 mg 05/02/23 09:00 05/03/23 09:31 Enoxaparin 40 Mg/0.4 Ml Syringe SUB-Q 40 mg DAILY SCARLET Administration Ferrous Glucon
[2023-05-03 13:54] VITALS: BP 123/49; PULSE 92; RESP 17; TEMP 37.8; O2SAT 100
[2023-05-03] MEDS: AMITRIPTYLINE HCL 25 MG TABLET 100 MG PO (21:23)
[2023-05-03 21:27] VITALS: O2SAT 98
[2023-05-03 22:00] VITALS: BP 107/53; PULSE 94; RESP 14; TEMP 37.7; O2SAT 99
[2023-05-04] MEDS: PIPERACILLN/TAZ 3.375GM/NS50ML 3.375 GM/50 ML BAG IVPB ×2 (00:27→06:03)
[2023-05-04] MEDS: IBUPROFEN IV 800 MG/200 ML 800 MG/200 ML BAG 400 MG IVPB ×4 (01:07→17:09)
[2023-05-04] MEDS: HYDROmorphone HCL INJ (*CRX) 1 MG/ML SYR IV PUSH ×6 (04:09→21:45)
[2023-05-04 06:00] VITALS: BP 91/48; PULSE 97; RESP 14; TEMP 37.3; O2SAT 99
[2023-05-04] MEDS: ONDANSETRON INJ 4 MG/2 ML VIAL IV PUSH ×2 (07:45→16:37)
[2023-05-04] MEDS: MIDODRINE HCL 10 MG TABLET PO ×3 (08:13→16:40)
[2023-05-04] MEDS: PANTOPRAZOLE SODIUM IV 40 MG VIAL IV PUSH (08:13)
[2023-05-04] MEDS: FERROUS GLUCONATE 324 MG TABLET PO (08:13)
[2023-05-04] MEDS: MIDODRINE HCL 2.5 MG TABLET 5 MG PO (08:13)
[2023-05-04] MEDS: FLUDROCORTISONE ACETATE 0.1 MG TABLET PO (08:13)
[2023-05-04] MEDS: predniSONE 1 MG TABLET 3 MG PO (08:13)
[2023-05-04] MEDS: ENOXAPARIN 40 MG/0.4 ML SYRINGE SUB-Q (08:14)
[2023-05-04 09:14] VITALS: O2SAT 97
[2023-05-04] MEDS: FLUTICASONE/SALMETEROL 115-21 MCG INHALER 1 PUFF 2 PUFF INHALATION ×2 (09:14→19:29)
[2023-05-04 10:11] LABS: Basophils Percent Auto 0.4 % (0.2-1.2); Eosinophils Absolute Auto 0.3 K/mm3 (0-0.3); Eosinophils Percent Auto 2.8 % (0-4.4); Hematocrit 37.1 % (37.0-47.0); Hemoglobin 12.2 g/dL (12.0-15.0); Immature Granulocyte Absolute 0.15 K/mm3 (0.00-0.031); Immature Granulocyte Percent A 1.6 % (0-0.5); Lymphocytes Absolute Auto 0.75 K/mm3 (0.9-3.2); Lymphocytes Percent Auto 7.8 % (18.3-44.2); Mean Corpuscular HGB Conc 32.9 g/dl (32-36); Mean Corpuscular Volume 94.4 fl (80-100); Mean Platelet Volume 10.8 fl (7.4-10.4); Monocytes Absolute Auto 1.2 K/mm3 (0.1-0.6); Monocytes Percent Auto 12.6 % (2.6-8.5); Neutrophils Absolute Auto 7.2 K/mm3 (1.3-6.7); Neutrophils Percent Auto 74.8 % (45.5-73.1); Platelet Count Result 208 k/mm3 (150-375); Red Blood Count 3.93 M/mm3 (4.2-5.4); Red Cell Distribution Width 12.7 % (11.5-14.5); White Blood Count 9.6 K/mm3 (4.5-10.0)
[2023-05-04 10:27] LABS: Alanine Aminotransferase 19 U/L (6-35); Albumin Level 2.9 g/dL (3.5-5.1); Alkaline Phosphatase 70 U/L (38-126); Anion Gap 7 mmol/L (8-16); Aspartate Amino Transferase 22 U/L (14-36); Bilirubin,Total 0.3 mg/dL (0.2-1.3); Blood Urea Nitrogen 2 mg/dL (7-17); Carbon Dioxide 25 mmol/L (22-30); Chloride 100 mmol/L (98-107); Estimated CRCL calculation 82 ml/min; Estimated Glomerular Filt Rate > 60; Glucose 182 mg/dL (65-110); Potassium 2.7 mmol/L (3.4-5.0); Sodium 132 mmol/L (137-145)
--- NOTE | 2023-05-04 10:34 | WPDGIPROGNO ---
Progress Note: A&P Assessment and Plan (1) Right lower quadrant abdominal pain: Code(s): R10.31 - Right lower quadrant pain Status: Acute Assessment and Plan: The pain came on acutely on Friday evening. It is suggestive of appendicitis. She does have thickening of the proximal ascending colon and cecum suggesting localized colitis or typhlitis. + no significant change in the pain nor in its location. (2) Abnormal CT of the abdomen: Code(s): R93.5 - Abnormal findings on diagnostic imaging of other abdominal regions, including retroperitoneum Status: Acute Assessment and Plan: Although the changes are in the same area as she had with her perforation 2 years ago, there is no free air at this time. There is however some localized fluid collection in the right pericolic gutter and in the dependent pelvis. I have ordered serology for inflammatory bowel disease. That of course will take several days to return. I had planned on performing a colonoscopy after discharge when hopefully the inflammation will have subsided. Given the fact that there has not been much progress, we may need to do it now as she was hospitalized in order to help direct our therapy accordingly. (3) Sepsis: Qualifiers: Sepsis type: sepsis due to unspecified organism Sepsis acute organ dysfunction status: without acute organ dysfunction Qualified Code(s): A41.9 - Sepsis, unspecified organism Code(s): A41.9 - Sepsis, unspecified organism Status: Acute Assessment and Plan: She has been started on antibiotics, her white blood count is beginning to come down. + White blood count down to 10,200 today + White blood count down to 9600 (4) SLE (systemic lupus erythematosus): Code(s): M32.9 - Systemic lupus erythematosus, unspecified Status: Chronic Assessment and Plan: she is treated by Dr. OWEN, sdv pilot/navigator/dds operator for her connective tissue disease. She is on chronic immunosuppressive therapy with Plaquenil and steroids and also an injectable biologic. She has not however had any change in medications recently. (5) Diarrhea: Code(s): R19.7 - Diarrhea, unspecified Status: Acute Assessment and Plan: not long after the pain began she began having diarrhea and soft mushy stools. She has not had a bowel movement since she got here. Stool cultures had not yet been ordered to my knowledge but I will go ahead and place orders for testing for enteric pathogens including C difficile. At this point it is difficult to know with she will need any endoscopic investigation but certainly not at this particular time. + Will obtain serology for inflammatory bowel disease. + diarrhea is worse last 24 hours. Will add Imodium. Plan no change in the location or type of pain which is still centralized the right lower quadrant. Surgery has seen her and does not feel that this is appendic itis. I told her that the plan would be to continue antibiotics and pain management. Eventually she will need a colonoscopy to investigate this area. There is a slight possibility of inflammatory bowel disease although it is an atypical picture on CT scan. May consider doing a colonoscopy while she is here rather than waiting to do it as an outpatient given the fact that her symptoms have not improved significantly Time Spent With Patient Time with patient: 25 - 35 minutes Subjective Date/time seen: Carlota Walker is a 47 year old female ? Who is admitted with right lower quadrant pain nausea and vomiting.? On Friday evening after work she began to notice pain in the right lower quadrant accompanied by nausea.? The following day the pain was worse and she was vomiting as well.? Also on she began having very loose stools.? She has not been able to eat or drink anything because of the nausea and vomiting.? She felt warm but did not record her temperature.? She had not been traveling.?
[2023-05-04] MEDS: LOPERAMIDE HCL 2 MG CAPSULE 4 MG PO (10:46)
[2023-05-04 10:49] LABS: Toxigenic C. Diff POSITIVE (NEGATIVE)
--- NOTE | 2023-05-04 10:57 | PM.IMPN ---
Progress Note: A&P Assessment and Plan (1) Clostridium difficile colitis: Code(s): A04.72 - Enterocolitis due to Clostridium difficile, not specified as recurrent Status: Acute Assessment and Plan: stool studies came back positive for C difficile. Start on oral vancomycin 125 mg every 6 hours for 10 days. This is patient's 1st time having C diff. (2) Colitis: Code(s): K52.9 - Noninfective gastroenteritis and colitis, unspecified Status: Acute Assessment and Plan: CT did to suggest possible appendicitis however information is more likely due to acute cecal colitis. General surgeon does not believe patient will need surgery at this time and recommends she be evaluated by GI. GI does not believe that this pain sub picture of an inflammatory bowel but she will need colonoscopy at some point. Zofran has been provided as needed for nausea. Will continue Dilaudid 0.5 mg Q 3 hours p.r.n. pain. Will add Toradol 15 mg q.6 hours p.r.n. pain 4-6. GI prophylaxis with Protonix 40 mg subQ daily Stool culture/studies positive for C diff, other studies pending (3) Hypokalemia: Code(s): E87.6 - Hypokalemia Status: Acute Assessment and Plan: Likely due to patient's diarrhea. Replace as necessary. 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 She is on immunosuppressant drugs. (5) Macrocytosis without anemia: Code(s): D75.89 - Other specified diseases of blood and blood-forming organs Status: Acute Assessment and Plan: Patient does have macrocytosis without evidence of anemia. Will check B12 and folic acid levels in a.m.. (6) Sepsis: Qualifiers: Sepsis type: sepsis due to unspecified organism Sepsis acute organ dysfunction status: without acute organ dysfunction Qualified Code(s): A41.9 - Sepsis, unspecified organism Code(s): A41.9 - Sepsis, unspecified organism Status: Acute Assessment and Plan: resolved Subjective Date/time seen: 05/04/23 10:57 Interval history: Patient continues to have right lower quadrant abdominal pain. She has associated diarrhea and nausea. She is not have any vomiting. She has decreased appetite. Today her C diff culture came back positive. Her Zosyn was discontinued and vancomycin was initiated. Review of Systems Review of Systems: All systems reviewed & are unremarkable except as noted in HPI and below Exam Narrative: GENERAL: Comfortable, no acute distress HENMT: moist mucous membranes EYES: EOM intact b/l NECK: no lymphadenopathy RESPIRATORY: clear to auscultation CARDIO: RRR GI: soft, Suprapubic and right lower quadrant tenderness, bowel sounds present SKIN: no rashes EXTREMITIES: no edema, redness or tenderness Objective Data Vital Signs Vital Signs: Vital Signs - 24 hr 05/03/23 13:54 05/03/23 21:27 05/03/23 22:00 Temperature 100.1 F H 99.9 F H Pulse Rate 92 94 Respiratory Rate 17 14 Blood Pressure 123/49 L 107/53 L Pulse Oximetry 100 98 99 Oxygen Delivery Room Air 05/04/23 06:00 05/04/23 08:00 05/04/23 09:14 Temperature 99.1 F Pulse Rate 97 Respiratory Rate 14 Blood Pressure 91/48 L Pulse Oximetry 99 97 Oxygen Delivery Room Air Room Air Intake/Output Intake/Output: Intake & Output 05/01/23 05/02/23 05/03/23 05/04/23 23:59 23:59 23:59 23:59 Intake Total 1000 3700 3650 1590 Balance 1000 3700 3650 1590 Meds/Results Medications: Active Medications Generic Name Dose Route Start Last Admin Trade Name Freq PRN Reason Stop Dose Admin Albuterol 2 puff 05/02/23 00:36 Albuterol Sulfate (*Sp) Aerosol 1 Puff INHALATION Q4H PRN Dyspnea Amitriptyline HC
[2023-05-04] MEDS: POTASSIUM CHLORIDE INJ 40 MEQ in SODIUM CHLORIDE 0.9% IV 500 ML 130 MEQ IVPB (11:29)
[2023-05-04] MEDS: VANCOMYCIN ORAL 125 MG/2.5 ML SYRUP PO ×2 (11:29→17:08)
--- NOTE | 2023-05-04 11:45 | PM.PNGS ---
Progress Note: A&P Assessment and Plan (1) Clostridium difficile colitis: Code(s): A04.72 - Enterocolitis due to Clostridium difficile, not specified as recurrent Status: Acute Assessment and Plan: Stool cultures come back is C diff positive. This could certainly explain the right-sided colitis. For now there is no evidence of toxic megacolon or perforation or abscess formation. Dr. Calle plans on endoscopy may be early this week. No evidence of complications the colitis at this time that would require urgent surgical management. Subjective Subjective Date/Time Seen: 05/04/23 11:45 Interval history: Patient feels about the same today as yesterday. Pain is no worse but not much better. Started having some worse diarrhea yesterday. It is nonbloody. Dr. Calle has seen her today and plans on colonoscopy maybe tomorrow. Her white blood cell count is normalized today. Her stools came back as C diff positive. Exam GI: Other: The abdomen is soft and nondistended. Does have some very mild tenderness to palpation the right side of the abdomen. No peritoneal signs the hernias are noted. No masses appreciated. No guarding. Objective Data Vital Signs Vital Signs: Vital Signs - 24 hr 05/03/23 13:54 05/03/23 21:27 05/03/23 22:00 Temperature 37.8 C H 37.7 C H Pulse Rate 92 94 Respiratory Rate 17 14 Blood Pressure 123/49 L 107/53 L Pulse Oximetry 100 98 99 Oxygen Delivery Room Air 05/04/23 06:00 05/04/23 08:00 05/04/23 09:14 Temperature 37.3 C Pulse Rate 97 Respiratory Rate 14 Blood Pressure 91/48 L Pulse Oximetry 99 97 Oxygen Delivery Room Air Room Air Intake/Output Intake/Output: Intake & Output 05/01/23 05/02/23 05/03/23 05/04/23 23:59 23:59 23:59 23:59 Intake Total 1000 3700 3650 1790 Balance 1000 3700 3650 1790 Meds/Results Medications: Active Medications Generic Name Dose Route Start Last Admin Trade Name Freq PRN Reason Stop Dose Admin Albuterol 2 puff 05/02/23 00:36 Albuterol Sulfate (*Sp) Aerosol 1 Puff INHALATION Q4H PRN Dyspnea Amitriptyline HCl 100 mg 05/02/23 21:00 05/03/23 21:23 Amitriptyline Hcl 25 Mg Tablet PO 100 mg HS SCARLET Administration Enoxaparin Sodium 40 mg 05/02/23 09:00 05/04/23 08:14 Enoxaparin 40 Mg/0.4 Ml Syringe SUB-Q 40 mg DAILY SCARLET Administration Ferrous Gluconate 324 mg 05/03/23 08:00 05/04/23 08:13 Ferrous Gluconate 324 Mg Tablet PO 324 mg DAILY@0800 SCARLET Administration Fludrocortisone Acetate 0.1 mg 05/02/23 09:00 05/04/23 08:13 Fludrocortisone Acetate 0.1 Mg Tablet PO 0.1 mg DAILY SCARLET Administration Hydromorphone HCl 0.5 mg 05/02/23 12:57 05/03/23 10:45 Hydromorphone Hcl Inj (*Crx) 1 Mg/Ml Syr IV PUSH 0.5 mg Q2H PRN Administration Pain Rated 4-6 Hydromorphone HCl 1 mg 05/02/23 12:55 05/04/23 10:53 Hydromorphone Hcl Inj (*Crx) 1 Mg/Ml Syr IV PUSH 1 mg Q2H PRN Administration Pain Rated 7-10 Ibuprofen 800 mg in 200 mls @ 400 mls/hr 05/02/23 13:00 05/04/23 11:33 Caldolor 800 Mg/200 Ml IVPB Infused Q6HR SCARLET Infusion Potassium Chloride 40 meq/ 520 mls @ 130 mls/hr 05/04/23 10:28 05/04/23 11:29 Sodium Chloride IVPB 05/04/23 14:27 130 mls/hr ONCE ONE Administration Ketorolac Tromethamine 15 mg 05/02/23 00:45 Ketorolac 15 Mg/Ml Vial (*Bkc) IV PUSH Q6H PRN Pain Rated 4-6 Loperamide HCl 2 mg 05/04/23 10:40 Loperamide Hcl 2 Mg Capsule PO PRN PRN Diarrhea Midodrine 5 mg 05/02/23 08:00 05/04/23 08:13 Midodrine Hcl 2.5 Mg Tablet PO 5 mg DAILY@0800 [facility] Administration Midodrine 10 mg 05/02/23 08:00 05/04/23 11:29 Midodrine Hcl 10 Mg Tablet PO 10 mg 0800,1200,1700 [facility] Administration Miscellaneous Information 0 each 05/02/23 00:01 Potassium Citrate Is Nonformulary - Use From Home? Sub For Kcl? XX 06/01/23 00:00 CLARIFY [facility] Non-Formulary Medication 3
[2023-05-04 14:00] VITALS: BP 106/53; PULSE 105; RESP 18; TEMP 36.8; O2SAT 100
[2023-05-04 16:58] LABS: Potassium 3.9 mmol/L (3.4-5.0)
[2023-05-04] MEDS: AMITRIPTYLINE HCL 25 MG TABLET 100 MG PO (21:44)
[2023-05-04] MEDS: FIDAXOMICIN 200 MG TABLET PO (21:45)
[2023-05-04 22:00] VITALS: BP 110/58; PULSE 95; RESP 16; TEMP 36.9; O2SAT 100
[2023-05-05] VITALS (7 sets, daily range): BP systolic 98–105; BP diastolic 41–59; PULSE 93–105; RESP 16–20; TEMP 36.3–37.7; O2SAT 96–100
[2023-05-05] MEDS: IBUPROFEN IV 800 MG/200 ML 800 MG/200 ML BAG 400 MG IVPB ×4 (00:36→23:55)
[2023-05-05] MEDS: HYDROmorphone HCL INJ (*CRX) 1 MG/ML SYR IV PUSH ×6 (00:47→21:13)
--- NOTE | 2023-05-05 06:32 | WPDGIPROGNO ---
Progress Note: A&P Assessment and Plan (1) Right lower quadrant abdominal pain: Code(s): R10.31 - Right lower quadrant pain Status: Acute Assessment and Plan: The pain came on acutely on Friday evening. It is suggestive of appendicitis. She does have thickening of the proximal ascending colon and cecum suggesting localized colitis or typhlitis. + no significant change in the pain nor in its location. (2) Abnormal CT of the abdomen: Code(s): R93.5 - Abnormal findings on diagnostic imaging of other abdominal regions, including retroperitoneum Status: Acute Assessment and Plan: Although the changes are in the same area as she had with her perforation 2 years ago, there is no free air at this time. There is however some localized fluid collection in the right pericolic gutter and in the dependent pelvis. I have ordered serology for inflammatory bowel disease. That of course will take several days to return. I had planned on performing a colonoscopy after discharge when hopefully the inflammation will have subsided. Given the fact that there has not been much progress, we may need to do it now as she was hospitalized in order to help direct our therapy accordingly. (3) Sepsis: Qualifiers: Sepsis type: sepsis due to unspecified organism Sepsis acute organ dysfunction status: without acute organ dysfunction Qualified Code(s): A41.9 - Sepsis, unspecified organism Code(s): A41.9 - Sepsis, unspecified organism Status: Acute Assessment and Plan: She has been started on antibiotics, her white blood count is beginning to come down. 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 She is on chronic immunosuppressive therapy with Plaquenil and steroids and also an injectable biologic. She has not however had any change in medications recently. (5) Diarrhea: Code(s): R19.7 - Diarrhea, unspecified Status: Acute Assessment and Plan: not long after the pain began she began having diarrhea and soft mushy stools. She has not had a bowel movement since she got here. Stool cultures had not yet been ordered to my knowledge but I will go ahead and place orders for testing for enteric pathogens including C difficile. At this point it is difficult to know with she will need any endoscopic investigation but certainly not at this particular time. + Will obtain serology for inflammatory bowel disease. + diarrhea is worse last 24 hours. Will add Imodium. 05/05/2023 C diff came back positive. The appearance on CT scan is atypical as 1 would expect her to have diffuse colitis. Nevertheless this explains her diarrhea. I told her that if she continues to tolerate eating as she did last night then we should be able to treat her at home. She will need a 10 day course of Dificid. ( Vancomycin had been started but is no longer the first-line therapy) Plan she continues have diarrhea and is upset because the nurses feel to bring her Imodium when she asked for it yesterday. I believe she can be discharged on regular diet and a full 10-14 day course of Dificid. She understands it assuming her bowel movements returned to normal that she should contact me if diarrhea returns. Fortunately, with Dificid, there is a much lower rate of relapse then with prior therapies. Time Spent With Patient Time with patient: 25 - 35 minutes Subjective Date/time seen: 05/03/23? 08:49 ?she states that the pain has not changed much but is relieved by analgesics.? It is still localized to the right lower quadrant.? She is not particularly hungry.? She is tolerating clear liquids.? No bowel movement during the night. 05/04/23?
[2023-05-05 06:46] LABS: Basophils Percent Auto 0.4 % (0.2-1.2); Eosinophils Absolute Auto 0.2 K/mm3 (0-0.3); Eosinophils Percent Auto 3.4 % (0-4.4); Hematocrit 33.4 % (37.0-47.0); Hemoglobin 10.9 g/dL (12.0-15.0); Immature Granulocyte Absolute 0.05 K/mm3 (0.00-0.031); Immature Granulocyte Percent A 0.9 % (0-0.5); Lymphocytes Absolute Auto 0.94 K/mm3 (0.9-3.2); Lymphocytes Percent Auto 16.8 % (18.3-44.2); Mean Corpuscular HGB Conc 32.6 g/dl (32-36); Mean Corpuscular Hemoglobin 30.8 pg (26-34); Mean Corpuscular Volume 94.4 fl (80-100); Mean Platelet Volume 11.1 fl (7.4-10.4); Monocytes Absolute Auto 0.7 K/mm3 (0.1-0.6); Neutrophils Absolute Auto 3.7 K/mm3 (1.3-6.7); Neutrophils Percent Auto 66.5 % (45.5-73.1); Platelet Count Result 211 k/mm3 (150-375); Red Blood Count 3.54 M/mm3 (4.2-5.4); Red Cell Distribution Width 12.7 % (11.5-14.5); White Blood Count 5.6 K/mm3 (4.5-10.0)
[2023-05-05] MEDS: LOPERAMIDE HCL 2 MG CAPSULE 4 MG PO (06:47)
[2023-05-05 06:54] LABS: Alanine Aminotransferase 17 U/L (6-35); Albumin Level 2.6 g/dL (3.5-5.1); Alkaline Phosphatase 68 U/L (38-126); Anion Gap 6 mmol/L (8-16); Aspartate Amino Transferase 22 U/L (14-36); Bilirubin,Total 0.2 mg/dL (0.2-1.3); Blood Urea Nitrogen 3 mg/dL (7-17); Calcium 7.1 mg/dL (8.4-10.2); Carbon Dioxide 26 mmol/L (22-30); Chloride 103 mmol/L (98-107); Estimated CRCL calculation 82 ml/min; Estimated Glomerular Filt Rate > 60; Glucose 86 mg/dL (65-110); Potassium 2.6 mmol/L (3.4-5.0); Sodium 135 mmol/L (137-145)
[2023-05-05] MEDS: POTASSIUM CHLORIDE 20 MEQ PACKET (FOR LIQUID) 40 MEQ PO (08:20)
[2023-05-05] MEDS: POTASSIUM CHLORIDE INJ 40 MEQ in SODIUM CHLORIDE 0.9% IV 500 ML 130 MEQ IVPB (08:20)
[2023-05-05] MEDS: predniSONE 1 MG TABLET 3 MG PO (08:21)
[2023-05-05] MEDS: MIDODRINE HCL 2.5 MG TABLET 5 MG PO (08:21)
[2023-05-05] MEDS: PANTOPRAZOLE SODIUM IV 40 MG VIAL IV PUSH (08:21)
[2023-05-05] MEDS: ENOXAPARIN 40 MG/0.4 ML SYRINGE SUB-Q (08:21)
[2023-05-05] MEDS: MIDODRINE HCL 10 MG TABLET PO ×3 (08:21→18:22)
[2023-05-05] MEDS: FIDAXOMICIN 200 MG TABLET PO ×2 (08:22→21:13)
[2023-05-05] MEDS: FLUDROCORTISONE ACETATE 0.1 MG TABLET PO (08:22)
[2023-05-05] MEDS: FERROUS GLUCONATE 324 MG TABLET PO (08:22)
[2023-05-05] MEDS: ONDANSETRON INJ 4 MG/2 ML VIAL IV PUSH ×2 (08:39→23:47)
[2023-05-05] MEDS: FLUTICASONE/SALMETEROL 115-21 MCG INHALER 1 PUFF 2 PUFF INHALATION ×2 (09:14→20:08)
--- NOTE | 2023-05-05 11:18 | PM.IMPN ---
Progress Note: A&P Assessment and Plan (1) Clostridium difficile colitis: Code(s): A04.72 - Enterocolitis due to Clostridium difficile, not specified as recurrent Status: Acute Assessment and Plan: stool studies came back positive for C difficile. Start on oral Dificid for 10 days. This is patient's 1st time having C diff. (2) Colitis: Code(s): K52.9 - Noninfective gastroenteritis and colitis, unspecified Status: Acute Assessment and Plan: CT did to suggest possible appendicitis however information is more likely due to acute cecal colitis. General surgeon does not believe patient will need surgery at this time and recommends she be evaluated by GI. GI does not believe that this pain sub picture of an inflammatory bowel but she will need colonoscopy at some point. Zofran has been provided as needed for nausea. Will continue Dilaudid 0.5 mg Q 3 hours p.r.n. pain. Will add Toradol 15 mg q.6 hours p.r.n. pain 4-6. GI prophylaxis with Protonix 40 mg subQ daily Stool culture/studies positive for C diff, other studies pending (3) Hypokalemia: Code(s): E87.6 - Hypokalemia Status: Acute Assessment and Plan: Likely due to patient's diarrhea. Replace as necessary. 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 She is on immunosuppressant drugs. (5) Macrocytosis without anemia: Code(s): D75.89 - Other specified diseases of blood and blood-forming organs Status: Acute Assessment and Plan: Patient does have macrocytosis without evidence of anemia. Will check B12 and folic acid levels in a.m.. (6) Sepsis: Qualifiers: Sepsis acute organ dysfunction status: without acute organ dysfunction Sepsis type: sepsis due to unspecified organism Qualified Code(s): A41.9 - Sepsis, unspecified organism Code(s): A41.9 - Sepsis, unspecified organism Status: Acute Assessment and Plan: resolved Subjective Date/time seen: 05/05/23 11:18 Interval history: Patient continues to have abdominal pain today as well as diarrhea. GI recommending Imodium for her diarrhea. She continues to have low potassium. It was discovered that she has chronically low potassium and she takes 30 mEq 3 times daily since last year. home potassium was restarted as well as subsequent potassium 2 replenish her losses. Hopeful with C diff treatment and potassium replacement that she will start to feel better. She can likely discharge tomorrow if labs are stable and she is tolerating diet well. Review of Systems Review of Systems: All systems reviewed & are unremarkable except as noted in HPI and below Exam Narrative: GENERAL: Comfortable, no acute distress HENMT: moist mucous membranes EYES: EOM intact b/l NECK: no lymphadenopathy RESPIRATORY: clear to auscultation CARDIO: RRR GI: soft, Suprapubic and right lower quadrant tenderness, bowel sounds present SKIN: no rashes EXTREMITIES: no edema, redness or tenderness Objective Data Vital Signs Vital Signs: Vital Signs - 24 hr 05/04/23 14:00 05/04/23 22:00 05/04/23 20:00 Temperature 98.3 F 98.4 F Pulse Rate 105 H 95 Respiratory Rate 18 16 Blood Pressure 106/53 L 110/58 L Pulse Oximetry 100 100 Oxygen Delivery Room Air 05/05/23 06:00 05/05/23 09:14 05/05/23 09:17 Temperature 97.4 F L Pulse Rate 93 104 H Respiratory Rate 16 20 Blood Pressure 105/59 L Pulse Oximetry 99 96 Oxygen Delivery Room Air Intake/Output Intake/Output: Intake & Output 05/02/23 05/03/23 05/04/23 05/05/23 23:59 23:59 23:59 23:59 Intake Total 3700 3650 5070 1680 Output Total 5 Balance 3700 3650 5065 1680 Meds/Results Medicat
--- NOTE | 2023-05-05 11:59 | PM.PNGS ---
Progress Note: A&P Assessment and Plan (1) Clostridium difficile colitis: Code(s): A04.72 - Enterocolitis due to Clostridium difficile, not specified as recurrent Status: Acute Assessment and Plan: Agree with Dr. Calle. Okay to discharge on Dificid. No need for surgical follow-up. Subjective Subjective Date/Time Seen: 05/05/23 11:59 Patient reports: feels better, pain is less, tolerating liquids well and diarrhea Review of Systems Review of Systems: All systems reviewed & are unremarkable except as noted in HPI and below (HPI) Exam Const: General: comfortable and no acute distress Orientation/consciousness: patient oriented x3 GI: Inspection: normal to inspection, non-distended and scaphoid GI Palp: Yes Soft to palpation, Yes Tenderness to palpation present (GI) (Right lower quadrant), No Hernia present, No Palpable mass present and No Ascites present Neuro: General: patient oriented x3 and no focal motor deficits Extrem: General: no calf tenderness and no edema Psych: Affect: normal affect Insight: Good insight present (Psych) Judgement: Good judgement present (Psych) Objective Data Vital Signs Vital Signs: Vital Signs - 24 hr 05/04/23 14:00 05/04/23 22:00 05/04/23 20:00 Temperature 36.8 C 36.9 C Pulse Rate 105 H 95 Respiratory Rate 18 16 Blood Pressure 106/53 L 110/58 L Pulse Oximetry 100 100 Oxygen Delivery Room Air 05/05/23 06:00 05/05/23 09:14 05/05/23 09:17 Temperature 36.3 C L Pulse Rate 93 104 H Respiratory Rate 16 20 Blood Pressure 105/59 L Pulse Oximetry 99 96 Oxygen Delivery Room Air Intake/Output Intake/Output: Intake & Output 05/02/23 05/03/23 05/04/23 05/05/23 23:59 23:59 23:59 23:59 Intake Total 3700 3650 5070 1680 Output Total 5 Balance 3700 3650 5065 1680 Meds/Results Medications: Active Medications Generic Name Dose Route Start Last Admin Trade Name Freq PRN Reason Stop Dose Admin Albuterol 2 puff 05/02/23 00:36 Albuterol Sulfate (*Sp) Aerosol 1 Puff INHALATION Q4H PRN Dyspnea Amitriptyline HCl 100 mg 05/02/23 21:00 05/04/23 21:44 Amitriptyline Hcl 25 Mg Tablet PO 100 mg HS [facility] Administration Enoxaparin Sodium 40 mg 05/02/23 09:00 05/05/23 08:21 Enoxaparin 40 Mg/0.4 Ml Syringe SUB-Q 40 mg DAILY [facility] Administration Ferrous Gluconate 324 mg 05/03/23 08:00 05/05/23 08:22 Ferrous Gluconate 324 Mg Tablet PO 324 mg DAILY@0800 [facility] Administration Fidaxomicin 200 mg 05/04/23 21:00 05/05/23 08:22 Fidaxomicin 200 Mg Tablet PO 200 mg Q12HR [facility] Administration Fludrocortisone Acetate 0.1 mg 05/02/23 09:00 05/05/23 08:22 Fludrocortisone Acetate 0.1 Mg Tablet PO 0.1 mg DAILY [facility] Administration Hydromorphone HCl 0.5 mg 05/02/23 12:57 05/03/23 10:45 Hydromorphone Hcl Inj (*Crx) 1 Mg/Ml Syr IV PUSH 0.5 mg Q2H PRN Administration Pain Rated 4-6 Hydromorphone HCl 1 mg 05/02/23 12:55 05/05/23 08:39 Hydromorphone Hcl Inj (*Crx) 1 Mg/Ml Syr IV PUSH 1 mg Q2H PRN Administration Pain Rated 7-10 Ibuprofen 800 mg in 200 mls @ 400 mls/hr 05/02/23 13:00 05/05/23 05:46 Caldolor 800 Mg/200 Ml IVPB Infused Q6HR [facility] Infusion Ketorolac Tromethamine 15 mg 05/02/23 00:45 Ketorolac 15 Mg/Ml Vial (*Bkc) IV PUSH Q6H PRN Pain Rated 4-6 Loperamide HCl 2 mg 05/04/23 10:40 Loperamide Hcl 2 Mg Capsule PO PRN PRN Diarrhea Midodrine 5 mg 05/02/23 08:00 05/05/23 08:21 Midodrine Hcl 2.5 Mg Tablet PO 5 mg DAILY@0800 [facility] Administration Midodrine 10 mg 05/02/23 08:00 05/05/23 08:21 Midodrine Hcl 10 Mg Tablet PO 10 mg 0800,1200,1700 [facility] Administration Ondansetron HCl 4 mg 05/01/23 21:14 05/05/23 08:39 Ondansetron Inj 4 Mg/2 Ml Vial IV PUSH 4 mg Q4H PRN Administration Nausea Pantoprazole Sodium 40 mg 05/02/23 09:00 05/05/23 08:21 Pantoprazole Sodium Iv 40 Mg Vial IV PUSH
[2023-05-05] MEDS: LOPERAMIDE HCL 2 MG CAPSULE PO ×2 (12:11→18:23)
[2023-05-05 13:09] LABS: Potassium 3.6 mmol/L (3.4-5.0)
[2023-05-05] MEDS: POTASSIUM CHLORIDE 10 MEQ ER TABLET 30 MEQ PO ×2 (13:34→18:22)
--- NOTE | 2023-05-05 14:23 | PCCCNOTE ---
On 05/05/23, the student, [Lili Andrea ], provided care and completed [facility] documentation on this patient. I have reviewed the student's documentation and agree with the findings.
[2023-05-05] MEDS: AMITRIPTYLINE HCL 25 MG TABLET 100 MG PO (21:12)
[2023-05-06] MEDS: IBUPROFEN 400 MG TABLET 800 MG PO ×3 (00:43→11:59)
[2023-05-06] MEDS: LOPERAMIDE HCL 2 MG CAPSULE PO ×2 (00:44→13:18)
[2023-05-06 05:57] VITALS: BP 106/58; PULSE 94; RESP 14; TEMP 37.1; O2SAT 96
[2023-05-06 06:03] LABS: Hemoglobin 12.7 g/dL (12.0-15.0); Mean Corpuscular HGB Conc 32.6 g/dl (32-36); Mean Corpuscular Hemoglobin 31.1 pg (26-34); Mean Corpuscular Volume 95.4 fl (80-100); Mean Platelet Volume 10.7 fl (7.4-10.4); Platelet Count Result 284 k/mm3 (150-375); Red Blood Count 4.09 M/mm3 (4.2-5.4); Red Cell Distribution Width 12.9 % (11.5-14.5); White Blood Count 4.3 K/mm3 (4.5-10.0)
[2023-05-06 06:09] LABS: Anion Gap 5 mmol/L (8-16); Blood Urea Nitrogen 3 mg/dL (7-17); Calcium 8.2 mg/dL (8.4-10.2); Carbon Dioxide 29 mmol/L (22-30); Chloride 102 mmol/L (98-107); Estimated CRCL calculation 82 ml/min; Estimated Glomerular Filt Rate > 60; Glucose 86 mg/dL (65-110); Potassium 3.7 mmol/L (3.4-5.0); Sodium 136 mmol/L (137-145)
[2023-05-06] MEDS: ONDANSETRON HCL ODT 4 MG TABLET PO ×2 (06:11→11:59)
[2023-05-06] MEDS: traMADol HCL (*CRX) 50 MG TABLET PO (06:11)
[2023-05-06 07:25] VITALS: PULSE 78; RESP 18; O2SAT 99
[2023-05-06] MEDS: FLUTICASONE/SALMETEROL 115-21 MCG INHALER 1 PUFF 2 PUFF INHALATION (07:25)
--- NOTE | 2023-05-06 07:31 | WPDGIPROGNO ---
Progress Note: A&P Assessment and Plan (1) Right lower quadrant abdominal pain: Code(s): R10.31 - Right lower quadrant pain Status: Acute Assessment and Plan: The pain came on acutely on Friday evening. It is suggestive of appendicitis. She does have thickening of the proximal ascending colon and cecum suggesting localized colitis or typhlitis. + no significant change in the pain nor in its location. + slight decrease in pain but still very tender on palpation with rebound tenderness (2) Abnormal CT of the abdomen: Code(s): R93.5 - Abnormal findings on diagnostic imaging of other abdominal regions, including retroperitoneum Status: Acute Assessment and Plan: Although the changes are in the same area as she had with her perforation 2 years ago, there is no free air at this time. There is however some localized fluid collection in the right pericolic gutter and in the dependent pelvis. I have ordered serology for inflammatory bowel disease. That of course will take several days to return. I had planned on performing a colonoscopy after discharge when hopefully the inflammation will have subsided. Given the fact that there has not been much progress, we may need to do it now as she was hospitalized in order to help direct our therapy accordingly. 05/06/2023 now that we know she has C diff colitis, I will wait until she is over that and consider colonoscopy as an outpatient. (3) Sepsis: Qualifiers: Sepsis type: sepsis due to unspecified organism Sepsis acute organ dysfunction status: without acute organ dysfunction Qualified Code(s): A41.9 - Sepsis, unspecified organism Code(s): A41.9 - Sepsis, unspecified organism Status: Acute Assessment and Plan: She has been started on antibiotics, her white blood count is beginning to come down. + White blood count down to 10,200 today + White blood count down to 9600 (4) SLE (systemic lupus erythematosus): Code(s): M32.9 - Systemic lupus erythematosus, unspecified Status: Chronic Assessment and Plan: she is treated by Dr. OWEN, metal sash setter for her connective tissue disease. She is on chronic immunosuppressive therapy with Plaquenil and steroids and also an injectable biologic. She has not however had any change in medications recently. (5) Diarrhea: Code(s): R19.7 - Diarrhea, unspecified Status: Acute Assessment and Plan: not long after the pain began she began having diarrhea and soft mushy stools. She has not had a bowel movement since she got here. Stool cultures had not yet been ordered to my knowledge but I will go ahead and place orders for testing for enteric pathogens including C difficile. At this point it is difficult to know with she will need any endoscopic investigation but certainly not at this particular time. + Will obtain serology for inflammatory bowel disease. + diarrhea is worse last 24 hours. Will add Imodium. 05/05/2023 C diff came back positive. The appearance on CT scan is atypical as 1 would expect her to have diffuse colitis. Nevertheless this explains her diarrhea. I told her that if she continues to tolerate eating as she did last night then we should be able to treat her at home. She will need a 10 day course of Dificid. ( Vancomycin had been started but is no longer the first-line therapy) 05/06/2023 I explained her that although we are using Imodium to decrease stool frequency, we do not want to bind her up. I explained her that in some extreme cases a person can develop a toxic megacolon and in rare instances colectomy is necessary. This however we will not likely be the case with her because CT shows that her inflammation is localized. Plan she continues have diarrhea and is upset because the nurses feel to bring her Imodium when she asked for it yesterday. I believe she can be discharged on regular diet and a full 10-14 day course o
[2023-05-06 08:00] VITALS: PULSE 78; RESP 18; O2SAT 99
[2023-05-06] MEDS: predniSONE 1 MG TABLET 3 MG PO (09:04)
[2023-05-06] MEDS: MIDODRINE HCL 10 MG TABLET PO ×2 (09:04→11:59)
[2023-05-06] MEDS: FERROUS GLUCONATE 324 MG TABLET PO (09:05)
[2023-05-06] MEDS: MIDODRINE HCL 2.5 MG TABLET 5 MG PO (09:05)
[2023-05-06] MEDS: FLUDROCORTISONE ACETATE 0.1 MG TABLET PO (09:05)
[2023-05-06] MEDS: ENOXAPARIN 40 MG/0.4 ML SYRINGE SUB-Q (09:05)
[2023-05-06] MEDS: FIDAXOMICIN 200 MG TABLET PO (09:05)
[2023-05-06] MEDS: POTASSIUM CHLORIDE 10 MEQ ER TABLET 30 MEQ PO ×2 (09:07→11:58)
--- NOTE | 2023-05-06 10:58 | PM.DS ---
DS: Admitting Diagnosis Discharge Date 02/04/23 Admitting Diagnosis Diarrhea, nausea, vomiting DS: Discharge Diagnosis Discharge Diagnosis (1) Clostridium difficile colitis: Code(s): A04.72 - Enterocolitis due to Clostridium difficile, not specified as recurrent Status: Acute Assessment and Plan: stool studies came back positive for C difficile. Start on oral Dificid for 10 days. This is patient's 1st time having C diff. (2) Colitis: Code(s): K52.9 - Noninfective gastroenteritis and colitis, unspecified Status: Acute Assessment and Plan: CT did to suggest possible appendicitis however information is more likely due to acute cecal colitis. General surgeon does not believe patient will need surgery at this time and recommends she be evaluated by GI. GI does not believe that this pain sub picture of an inflammatory bowel but she will need colonoscopy at some point. Zofran has been provided as needed for nausea. Will continue Dilaudid 0.5 mg Q 3 hours p.r.n. pain. Will add Toradol 15 mg q.6 hours p.r.n. pain 4-6. GI prophylaxis with Protonix 40 mg subQ daily Stool culture/studies positive for C diff, other studies are negative (3) Hypokalemia: Code(s): E87.6 - Hypokalemia Status: Acute Assessment and Plan: Likely due to patient's diarrhea. Replace as necessary. 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 She is on immunosuppressant drugs. (5) Macrocytosis without anemia: Code(s): D75.89 - Other specified diseases of blood and blood-forming organs Status: Acute Assessment and Plan: Patient does have macrocytosis without evidence of anemia. Will check B12 and folic acid levels in a.m.. (6) Sepsis: Qualifiers: Sepsis type: sepsis due to unspecified organism Sepsis acute organ dysfunction status: without acute organ dysfunction Qualified Code(s): A41.9 - Sepsis, unspecified organism Code(s): A41.9 - Sepsis, unspecified organism Status: Acute Assessment and Plan: resolved DS: Summary Hospital Course Hospital Course: This is a 47-year-old with past medical history of SLE, RA, pots a renal disease that presented to the ED on 05/01/2023 due to right lower quadrant abdominal pain, nausea and vomiting for 1 day. She had recently been on antibiotics for pneumonia. Her temperature in the ER was 100.4 ?. She denies any recent travel or camping. Patient did not have any hematochezia or melena or hematemesis. No family history of IBD. CT abdomen pelvis suggests possible appendicitis however formation is more likely due to acute cecal colitis. Stool studies were ordered and patient started on Zosyn, IV fluids, analgesics p.r.n. and Protonix. General surgery was consulted. General surgery does not believe the patient has acute appendicitis but did start workup for IBD. Patient has been worked up for IBD in the past But results were negative. Patient's stool studies came back positive for C diff. She was started on Dificid per GIs recommendations. GI also recommended that patient have Imodium due to ongoing diarrhea. Her diet was advanced and she tolerated it well. Discussed to Dr. Calle and he is wanting patient to follow up in his office in 2 weeks. Labs and vital signs are stable and she is medically clear for discharge. Time Spent with Patient Time attestation: Total time spent providing and/or coordinating discharge services: Exam Narrative: GENERAL: Comfortable, no acute distress HENMT: moist mucous membranes EYES: EOM intact b/l NECK: no lymphadenopathy RESPIRATORY: clear to auscultation CARDIO: RRR GI: soft, nontender, bowel sounds present SKIN
[2023-05-12 14:17] LABS: ANCA Screen Negative (Negative); Myeloperoxidase Ab <1.0 AI (<1.0); Proteinase-3 Ab <1.0 AI (<1.0); S cerevisiae Ab (IgA) 4.4 U (<=20.0); S cerevisiae Ab (IgG) 13.7 U (<=20.0)
[2023-05-16 13:18] LABS: Calprotectin, Stool 2680
== END 2023-05-06 13:40 | disposition home or self-care (01) | DRG 872 ==
LOC: ANHED 19:44 → ANH3MEDSUR 22:22
PROVIDERS: Emergency Medicine; Internal Medicine Gastroenterology; Admitting Provider Internal Medicine; Emergency Provider Physician Assistant; Visit Provider Internal Medicine Critical Care Medicine
DX: A41.9 Sepsis, unspecified organism (principal); A04.72 Enterocolitis due to Clostridium difficile, not specified as recurrent; D84.821 Immunodeficiency due to drugs; K52.89 Other specified noninfective gastroenteritis and colitis; E87.6 Hypokalemia; D75.89 Other specified diseases of blood and blood-forming organs; M32.9 Systemic lupus erythematosus, unspecified; M06.9 Rheumatoid arthritis, unspecified; I73.00 Raynaud's syndrome without gangrene; G90.A Postural orthostatic tachycardia syndrome [POTS]; Z87.891 Personal history of nicotine dependence; Z90.711 Acquired absence of uterus with remaining cervical stump; Z79.899 Other long term (current) drug therapy
CPT/HCPCS: 36415; 74176; 74177; 80048; 80053; 81001; 82607; 82728; 82746; 83540; 83550; 83605; 83690; 83993; 84132; 84439; 84443; 84466; 84480; 85025; 85027; 85055; 86036; 86140; 86671; 87040; 87045; 87269; 87272; 87427; 87493; 89055; 94640; 96361; 96366; 96367; 96372; 96374; 96375; 96376; 99285; A9270; C9113; G0378; J1170; J1650; J1741; J2270; J2405; J2543; J3480; J7030; J7040; Q9967

== ENCOUNTER 2023-12-30 16:19 | Outpatient (CLI) | payer BC, SELFPAY ==
--- NOTE | ~2023-12-30 | XR_ITS ---
EXAM: XR abdomen/kub 1V DATE: 12/30/2023 16:45 HISTORY: BI KIDNEY STONES . COMPARISON: 04/01/2023; CT abdomen 05/02/2023. FINDINGS: Clear lung bases. Normal bowel gas pattern. No organomegaly. Punctate calcifications proje cting over the bilateral renal shadows, grossly stable. Pelvic phleboliths. Regional bones and soft t issues normal for age. IMPRESSION: Stable bilateral nephrolithiasis. Reviewed, dictated and finalized at location K.
== END 2023-12-30 16:20 | disposition home or self-care (01) ==
LOC: ANHIMG 16:23
PROVIDERS: Visit Provider Urology
DX: N20.0 Calculus of kidney (principal)
CPT/HCPCS: 74018

== ENCOUNTER 2024-03-28 07:33 | Outpatient (CLI) | payer BC, SELFPAY ==
--- NOTE | ~2024-03-28 | MR_ITS ---
EXAMINATION: MR lumbar spine wo con DATE: 03/28/2024 08:22 INDICATION: Back pain. Pinched nerve. Lumbar displacement. TECHNIQUE: Magnetic resonance imaging (MRI) of the lumbar spine was performed without intravenous con trast. Sequences included sagittal T2-weighted FSE, sagittal T2-weighted FS FSE, sagittal T1-weighted FSE, and axial T2-weighted FSE. COMPARISON: Lumbar spine MRI 04/11/2020 FINDINGS: There is 4 degrees levocurvature of lumbar spine. There is 3 mm anterolisthesis of L4 on L5 . Vertebral body heights are normal. There is mildly decreased disc height at L3-L4, moderately decre ased disc height at L4-L5, and mildly decreased disc height at L5-S1. The distal spinal cord signal i ntensity is normal. The conus medullaris is at L1. The following disc levels are specifically discuss ed: L1-L2: There is a central extrusion. There is mild bilateral facet joint osteoarthritis. There is no neural foraminal stenosis. There is mild central canal stenosis. L2-L3: The disc does not extend beyond the endplate margin. There is mild bilateral facet joint osteo arthritis. There is no neural foraminal stenosis. There is no central canal stenosis. L3-L4: The disc is bulging and has an annular fissure. There is mild right and moderate left facet kaya int osteoarthritis. There is mild bilateral neural foraminal stenosis. There is mild central canal st enosis. L4-L5: The disc is bulging and has an annular fissure. There is severe bilateral facet joint osteoart hritis with 8 mm synovial cyst on the left. There is mild bilateral neural foraminal stenosis. There is mild central canal stenosis. There is severe stenosis of left lateral recess at the L5 pedicular l evel. L5-S1: The disc is bulging and has an annular fissure. There is moderate bilateral facet joint osteoa rthritis. There is mild bilateral neural foraminal stenosis. There is mild central canal stenosis. IMPRESSION: 1. Severe left lateral recess stenosis at the L5 pedicular level secondary to a synovial cyst. 2. Otherwise moderate lumbar spondylosis, worsened from 04/11/2020. Reviewed, dictated and finalized at location E.
== END 2024-03-28 07:34 | disposition home or self-care (01) ==
LOC: ANHIMG 07:34
DX: M54.42 Lumbago with sciatica, left side (principal); M43.06 Spondylolysis, lumbar region; M48.061 Spinal stenosis, lumbar region without neurogenic claudication; M71.30 Other bursal cyst, unspecified site
CPT/HCPCS: 72148